=== PATIENT | male | born 1980 | race Native Hawaiian/Other Pacific Islander ===

== ENCOUNTER 2020-10-05 15:01 | Outpatient (REF) | payer OTHER, SELFPAY | END 2020-10-05 15:02 | disposition home or self-care (01) | LOC: HO.LAB 15:01 | PROVIDERS: Visit Provider Internal Medicine | DX: Z20.822 Contact with and (suspected) exposure to COVID-19 (principal) | CPT/HCPCS: C9803; U0003; U0005 ==

== ENCOUNTER 2022-05-16 14:09 | Outpatient (REF) | payer OTHER, SELFPAY ==
--- NOTE | ~2022-05-16 | XR_ITS ---
EXAMINATION: XR CHEST CLINICAL INFORMATION: Cough COMPARISON: None TECHNIQUE: 2 views of the chest were obtained. FINDINGS: No significant abnormality is noted involving the heart, lungs, mediastinum, bony thorax or soft tissues. XR/XR chest 2V IMPRESSION: Unremarkable examination.
== END 2022-05-16 14:10 | disposition home or self-care (01) ==
LOC: HO.XRAY 14:09
PROVIDERS: PCP Family Medicine; Visit Provider Family Medicine
DX: R05.9 Cough, unspecified (principal); R06.2 Wheezing
CPT/HCPCS: 71046

== ENCOUNTER 2022-05-22 10:15 | Outpatient (REF) | payer OTHER, SELFPAY ==
[2022-05-22 12:59] LABS: Estimated Average Glucose 126 mg/dL
[2022-05-22 13:06] LABS: Alanine Aminotransferase 21 U/L (0-40); Anion Gap 13 (12-20); Aspartate Amino Transferase 18 U/L (5-37); Blood Urea Nitrogen 10 mg/dL (9-16); Carbon Dioxide 27 mmol/L (22-29); Chloride 107 mmol/L (96-108); Cholesterol 141 mg/dL; Estimated Glomerular Filt Rate > 60; Glucose Fasting 110 mg/dL (60-99); HDL Cholesterol 30 mg/dL; LDL Cholesterol Calculated 100 mg/dl; Potassium 4.5 mmol/L (3.3-5.1); Sodium 142 mmol/L (135-145); Thyroid Stimulating Hormone 1.14 uIU/mL (0.32-4.0); Triglycerides 57 mg/dL
== END 2022-05-22 10:16 | disposition home or self-care (01) ==
LOC: HO.LAB 10:15
PROVIDERS: PCP Family Medicine; Visit Provider Family Medicine
DX: E66.9 Obesity, unspecified (principal); I10 Essential (primary) hypertension; R00.0 Tachycardia, unspecified; Z82.49 Family history of ischemic heart disease and other diseases of the circulatory system
CPT/HCPCS: 36415; 80051; 80061; 82565; 82947; 83036; 84443; 84450; 84460; 84520

== ENCOUNTER 2022-08-01 12:57 | Emergency (ER) | payer OTHER, SELFPAY ==
--- NOTE | ~2022-08-01 | XR_ITS ---
EXAMINATION: XR CHEST CLINICAL INFORMATION: Cough. COMPARISON: 05/16/2022 chest radiographs. TECHNIQUE: 2 views of the chest were obtained. FINDINGS: No significant abnormality is noted involving the heart, lungs, mediastinum, bony thorax or soft tissues. XR/XR chest 2V IMPRESSION: No acute cardiopulmonary process.
[2022-08-01 13:10] VITALS: BP 160/89; PULSE 107; RESP 20; TEMP 36.1; O2SAT 95; BMI 43.5
--- NOTE | 2022-08-01 13:10 | ED_ITS ---
HPI - URI/Sore Throat General Chief Complaint: Upper Respiratory Symptoms <STEVEN Hall Last Filed: 08/01/22 13:11> Stated Complaint: flu symptons <STEVEN Hall Last Filed: 08/01/22 13:11> Time Seen by Provider: 08/01/22 15:01 <STEVEN Hall Last Filed: 08/01/22 13:11> Source: patient <STEVEN Bowens Last Filed: 08/01/22 18:56> Mode of arrival: ambulatory <STEVEN Bowens Last Filed: 08/01/22 18:56> History of Present Illness HPI Narrative: 42-year-old male with no significant past medical history presenting to the ED complaining of nasal congestion, rhinorrhea, nonproductive cough, and rib pain when coughing since yesterday. Reports mild SOB. Denies fever, chills, ear pain, sore throat, recent travel, sick contacts <STEVEN Bowens Last Filed: 08/01/22 18:56> MD elicited complaint: rhinorrhea and nasal congestion <STEVEN Bowens Last Filed: 08/01/22 18:56> Onset (ago): day(s) <STEVEN Bowens Last Filed: 08/01/22 18:56> Related Data Home Medications: Previous Rx's Medication Instructions Recorded benzonatate 100 mg capsule 100 mg PO TID PRN cough #14 caps 08/01/22 fluticasone propionate 50 2 spray intranasal DAILY #16 grams 08/01/22 mcg/actuation nasal spray,suspension (Flonase Allergy Relief) <STEVEN Hall Last Filed: 08/01/22 13:11> Allergies/Adverse Reactions: Allergies Allergy/AdvReac Type Severity Reaction Status Date / Time No Known Allergies Allergy Unverified 03/01/20 17:26 <STEVEN Hall Last Filed: 08/01/22 13:11> Review of Systems Review of Systems: Constitutional: No Fever, No Chills ENT/Mouth: No Ear Pain, + Nasal Congestion, No Sinus Pain, No Hoarseness, No sore throat, + Rhinorrhea, No Swallowing Difficulty Cardiovascular: + Chest Pain when coughing, + SOB Respiratory: + Cough, No Sputum, No Wheezing Gastrointestinal: No Nausea, No Vomiting, No Diarrhea, No Abdominal pain Genitourinary: No Dysuria, No Urinary Frequency, No Hematuria Musculoskeletal: No joint pain, + Myalgias, No Joint Swelling Skin: No Skin Lesions, No rash Neuro: No Weakness, No Numbness, No Paresthesias <STEVEN Bowens - Last Filed: 08/01/22 18:56> Yes all other systems are reviewed and are negative <STEVEN Bowens - Last Filed: 08/01/22 18:56> Constitutional: Constitutional: Reports as per HPI <STEVEN Bowens - Last Filed: 08/01/22 18:56> [facility] Past Medical History Attestation statement: The following information was validated with the patient. <STEVEN Bowens - Last Filed: 08/01/22 18:56> Social History Social History: Social History Alcohol intake: current Alcohol intake frequency: holidays/special occasions only Smoked in Last 30 Days: No Advance Directives: No Advance Directives Information Provided: Yes <STEVEN Hall - Last Filed: 08/01/22 13:11> Physical Exam Vital Signs: Vital Signs: Last Vital Signs Temp 98.1 F 08/01/22 16:32 Pulse 92 08/01/22 16:32 Resp 18 08/01/22 16:32 BP 135/90 H 08/01/22 16:32 Pulse Ox 96 08/01/22 16:32 O2 Del Method 08/01/22 16:32 BMI result Body Mass Index 43.5 <STEVEN Hall - Last Filed: 08/01/22 13:11> Vital Signs: Last Vital Signs Temp 98.1 F 08/01/22 16:32 Pulse 92 08/01/22 16:32 Resp 18 08/01/22 16:32 BP 135/90 H 08/01/22 16:32 Pulse Ox 96 08/01/22 16:32 O2 Del Method 08/01/22 16:32 BMI result Body Mass Index 43.5 <STEVEN Bowens - Last Filed: 08/01/22 18:56> Const: General: cooperative, healthy appearing and no acute distress <STEVEN Bowens Last Filed: 08/01/22 18:56> Orientation/consciousness: patient oriented x3 <STEVEN Bowens - Last Filed: 08/01/22 18:56> Limitations: no limitations <STEVEN Bowens - Last Filed: 08/01/22 18:56> HEENT: Head: Yes normal to inspection and Yes atraumatic <STEVEN Bowens - Last Filed: 08/01/22 18:56> Ears: hearing grossly normal bilaterally, TM's normal bilaterally and mastoids normal <STEVEN Bowens - Last Filed: 08/01/22 18:56> General nose exam: Normal external nose present <STEVEN Bowens Last F iled: 08/01/22 18:56> Face and sinus: Yes normal facial exam <STEVEN Bowens - Last Filed: 08/01/22 18:56> Mouth: Normal oral and palatal mucosa present <STEVEN Bowens - Last Filed: 08/01/22 18:56> Throat: Yes posterior oropharynx normal, Yes tonsils normal, Yes uvula midline, No peritonsillar mass, No uvula laterally displaced and No uvular edema <STEVEN Bowens - Last Filed: 08/01/22 18:56> Eyes: General: appearance normal, both eyes and all related structures <STEVEN Bowens - Last Filed: 08/01/22 18:56> EOM: EOMs intact bilaterally <STEVEN Bowens - Last Filed: 08/01/22 18:56> Neck: Neck: Yes normal visual inspection and Yes no meningeal signs <STEVEN Bowens Last Filed: 08/01/22 18:56> Resp: Effort & Inspection: normal respiratory effort and no respiratory distress <STEVEN Bowens - Last Filed: 08/01/22 18:56> Auscultation: clear to auscultation bilaterally, no crackles, no rales and no rhonchi <STEVEN Bowens - Last Filed: 08/01/22 18:56> Cardio: Rate: regular rate <STEVEN Bowens - Last Filed: 08/01/22 18:56> Heart sounds: S1 normal heart sound present and S2 normal heart sound present <STEVEN Bowens - Last Filed: 08/01/22 18:56> Skin: Rashes: no rashes <STEVEN Bowens - Last Filed: 08/01/22 18:56> Wounds: no wounds <STEVEN Bowens - Last Filed: 08/01/22 18:56> Neuro: General: patient oriented x3, tone normal and no meningeal signs <STEVEN Bowens - Last Filed: 08/01/22 18:56> Gait exam (Neuro): Normal gait present <STEVEN Bowens - Last Filed: 08/01/22 18:56> Extrem: General: Yes normal to inspection <STEVEN Bowens - Last Filed: 08/01/22 18:56> Course Course Course Narrative: RME-13:10 42yoM presenting to the ED with complaints of nasal congestion/rhinorrhea, sore throat, productive cough all started yesterday worse today. Denies any fevers, sick contacts recent travel, nausea/vomiting/diarrhea abdominal pain or any other symptoms complaints or concerns at this time. Plan: COVID/RSV/flu, strep and chest x-ray ordered at this time. Patient to be seen EM. <STEVEN Hall - Last Filed: 08/01/22 13:11> RME-13:10 42yoM presenting to the ED with complaints of nasal congestion/rhinorrhea, sore throat, productive cough all started yesterday worse today. Denies any fevers, sick contacts recent travel, nausea/vomiting/diarrhea abdominal pain or any other symptoms complaints or concerns at this time. Plan: COVID/RSV/flu, strep and chest x-ray ordered at this time. Patient to be seen [facility]. -COVID-19 positive -chest x-ray unremarkable Results discussed with patient including worrisome signs and symptoms and strict return precautions, and when to return to the emergency department. They verbalized understanding and feel safe for discharge at this time. <STEVEN Bowens Last Filed: 08/01/22 18:56> Medical Decision Making Medical Decision Making MDM Narrative: 42-year-old male with no significant past medical history presenting to the ED complaining of nasal congestion, rhinorrhea, nonproductive cough, and rib pain when coughing since yesterday. On exam mildly tachycardic likely from active cough, NAD, nontoxic appearing, lungs CTA exam otherwise benign. Concern for viral illness versus bronchitis. Rule out pneumonia. Lower suspicion for ACS/PE or CHF Plan: COVID-19/influenza/RSV, rapid strep testing, CXR Please refer to course for remaining clinical decision making, interpretation of labs/imaging results, and discussions with consultants and/or family members. <STEVEN Bowens - Last Filed: 08/01/22 18:56> Differential Diagnosis Differential Diagnoses: The differential diagnosis associated with the presentation includes <STEVEN Bowens - Last Filed: 08/01/22 18:56> As above <STEVEN Bowens - Last Filed: 08/01/22 18:56> Lab Data [facility] Lab Attestation statement: I reviewed the patient's lab results. <STEVEN Bowens - Last Filed: 08/01/22 18:56> Labs: Lab Results 08/01/22 08/01/22 Range/Units 14:44 14:44 Influenza Type A (PCR) NEGATIVE (Negative) Influenza Type B (PCR) NEGATIVE (Negative) RSV RNA Qual (PCR) NEGATIVE (Negative) SARS-CoV-2 RNA (RT-PCR) POSITIVE A (Negative) S. pyogenes GrpA SIMIN Negative (Negative) <STEVEN Hall - Last Filed: 08/01/22 13:11> Lab Results 08/01/22 08/01/22 Range/Units 14:44 14:44 Influenza Type A (PCR) NEGATIVE (Negative) Influenza Type B (PCR) NEGATIVE (Negative) RSV RNA Qual (PCR) NEGATIVE (Negative) SARS-CoV-2 RNA (RT-PCR) POSITIVE A (Negative) S. pyogenes GrpA SIMIN Negative (Negative) <STEVEN Bowens - Last Filed: 08/01/22 18:56> Radiology Impression Discussion of test interpretation with radiology: I have reviewed the radiologist's reading. <STEVEN Bowens - Last Filed: 08/01/22 18:56> Prescription Management I considered prescription management with: Antiviral <STEVEN Bowens - Last Filed: 08/01/22 18:56> Discharge Plan Discharge Clinical Impression: COVID-19 <STEVEN Hall - Last Filed: 08/01/22 13:11> Patient Disposition: Home, Self-Care <STEVEN Hall - Last Filed: 08/01/22 13:11> Instructions: COVID-19 (Coronavirus Disease 2019) (ED) <STEVEN Hall - Last Filed: 08/01/22 13:11> Additional Instructions: At this time you will be okay for discharge. Please self isolate for 5-10 days. Do not expose yourself to others. You may not go to work or school. Please continue to follow cold instructions and wash your hands frequently. You may take Tylenol / Motrin as directed on the bottle for pain or fever. If you have constant or persistent shortness of breath, fever unresolved with medications, chest pain, or your unable to eat or drink please return to the ED CDC Guidelines for home isolation: - Stay away from others - WEAR A MASK if you are sick AND STAY HOME - Cover your mouth and nose with a tissue when you cough or sneeze. Dispose of tissues in a lined trash can and wash your hands immediately with soap and water for at least 20 seconds. If soap and water are not available, clean hands with alcohol-based hand personal trainer that contains at least 60% alcohol. - Clean your hands often with soap and water for at least 20 seconds - Avoid touching your eyes, nose and mouth with unwashed hands - Do not share dishes, drinking glasses, cups, eating utensils, towels, or bedding with other people in your home. After using these items, wash them thoroughly with soap and water or put in the slitting machine feeder. - Clean high-touch surfaces in your isolation area ( sick room and bathroom) every day; let a caregiver clean and disinfect high-touch surfaces in other areas of the home. Clean the area or item with soap and water or another detergent if it is dirty. Then, use a household disinfectant. - Limit contact with pets and animals: If you must care for a pet, wash your hands before and after interacting with them) <STEVEN Hall - Last Filed: 08/01/22 13:11> Prescriptions: New benzonatate 100 mg capsule 100 mg PO TID PRN (Reason: cough) Qty: 14 0RF fluticasone propionate [Flonase Allergy Relief] 50 mcg/actuation spray,suspension 2 spray intranasal DAILY Qty: 16 0RF Rx Instructions: administer into each nostril <STEVEN Hall - Last Filed: 08/01/22 13:11> Referrals: Andrei Vieira MD [Primary Care Provider] - 1 week <STEVEN Hall - Last Filed: 08/01/22 13:11> Stand Alone Forms: Work/School Release <STEVEN Hall - Last Filed: 08/01/22 13:11> Interventions: ED Discharge Assessment Last Done: 08/01/22 17:11 <STEVEN Hall - Last Filed: 08/01/22 13:11> Discharge Date/Time: 08/01/22 17:11 <STEVEN Hall - Last Filed: 08/01/22 13:11>
[2022-08-01 15:03] LABS: IDNOW Serial# 6674DD1D; Strep A Nucleic Acid Negative (Negative)
[2022-08-01 15:46] LABS: Influenza A PCR NEGATIVE (Negative); Influenza B PCR NEGATIVE (Negative); Resp Syncy Virus RNA Qual PCR NEGATIVE (Negative); SARS COV2 PCR INHOUSE POSITIVE (Negative)
[2022-08-01 16:32] VITALS: BP 135/90; PULSE 92; RESP 18; TEMP 36.7; O2SAT 96
== END 2022-08-01 17:11 | disposition home or self-care (01) ==
PROVIDERS: Physician Assistant Medical; Emergency Provider Emergency Medicine; PCP Family Medicine
DX: U07.1 COVID-19 (principal)
CPT/HCPCS: 0241U; 36415; 71046; 87651; 99283; 99284

== ENCOUNTER → 2022-10-14 08:29 | Outpatient (BNVA) | payer OTHER, SELFPAY | PROVIDERS: PCP Family Medicine; Referring Provider Family Medicine; Visit Provider Internal Medicine | DX: I45.10 Unspecified right bundle-branch block (principal); I10 Essential (primary) hypertension; E66.01 Morbid (severe) obesity due to excess calories; Z68.42 Body mass index [BMI] 45.0-49.9, adult | CPT/HCPCS: 93005; 99202 ==

== ENCOUNTER → 2022-10-16 14:27 | Outpatient (BNVA) | payer OTHER, SELFPAY | PROVIDERS: PCP Family Medicine; Visit Provider Nurse Practitioner Family | DX: R06.83 Snoring (principal); R40.0 Somnolence; E66.01 Morbid (severe) obesity due to excess calories; Z68.41 Body mass index [BMI] 40.0-44.9, adult | CPT/HCPCS: 99202 ==

== ENCOUNTER → 2022-10-23 08:55 | Outpatient (REF) | payer OTHER, SELFPAY ==
--- NOTE | 2022-10-23 08:57 | CA_ITS ---
Transthoracic Echocardiogram Patient (Last, First, Middle): Dangelo Cherry, Gender: Male Date of : 1980 Age: 42 Procedure Date: 10/23/2022 Procedure Type: Transthoracic Echocardiogram Location: OP Height: 175.26 cm Weight: 135.63 kg BSA: 2.45 m2 Heart Rate: bpm BP: 120 / 76 mmHg Roster Clerk: TO Referring MD: Shay Adan MD Symptoms: I45.10 - Unspecified right bundle-branch block Study Quality: Fair ECG Rhythm: Sinus Conclusions: - The left ventricular systolic function is mildly decreased. The calculated ejection fraction is 51% by biplane method. - No obvious valvular pathology seen on this study. Findings Left Ventricle Normal left ventricular cavity size. There is mildly increased left ventricular wall thickness. The left ventricular systolic function is mildly decreased. The calculated ejection fraction is 51% by biplane method. There is no evidence of regional wall motion abnormalities. Diastolic function is normal for age. LV peak GLS -17.1%. Right Ventricle Normal right ventricular cavity size and systolic function. Atria Both atria are normal in size. Aortic Valve There is a normal trileaflet aortic valve. There is no aortic valve stenosis. There is no aortic valve regurgitation. Mitral Valve The mitral valve appears normal. There is no mitral valve regurgitation. There is no mitral valve stenosis. Pulmonic Valve The pulmonic valve is likely normal. Tricuspid Valve Normal tricuspid valve structure. There is mild tricuspid valve regurgitation. There is no evidence of pulmonary hypertension. Great Vessels The asc aorta is normal in size. Venous The inferior vena cava is normal in size and collapses greater than 50% with inspiration. Pericardium/Pleural There is no evidence of pericardial effusion. Prior Study Comparison No prior study available for comparison. Recommendations, Care & Conclusions No obvious valvular pathology seen on this study. Measurements 2D Linear Measurements IVSd: 1.28 0.6-0.9/0.6-1.0 cm LVIDd: 5.64 3.9-5.3/4.2-5.9 cm LVIDd Index: 2.30 2.4-3.2/2.2-3.1 cm/m2 LVIDs: 3.54 2.0-3.6 cm LVPWd: 1.03 0.7-1.1 cm LA Diam: 4.30 2.7-3.8/3.0-4.0 cm LAIDs Index: 1.76 1.5-2.3 cm/m2 LV Mass: 335.98 67-162/88-224 g LV Mass Index: 137.13 43-95/49-115 g/m2 LVOT Diam: 2.50 3.0+(-)1.3 cm 2D Systolic Function EF 4C: 50.40 >55% EF 2C: 50.00 >55% EF BiP: 51.40 >55% Mitral Valve MV Pk E: 0.56 MV PK A: 0.42 MV Decel Time: 180.00 E/A: 1.30 E'Lateral: 12.60 E'Medial: 8.49 E/E' Med: 6.60 E/E' Lat: 4.50 PHT: 53.00 MVA PHT: 4.15 Decel Hickman: 3.12 Aortic Valve AoV Pk Ghassan: 1.12 AoV Mn Ghassan: 0.86 AoV VTI: 0.24 AoV Pk Grad: 5.00 Aov Mn Grad: 3.00 DIEGO Cont.VTI: 3.82 LVOT LVOT Pk Ghassan: 0.94 LVOT Mn Ghassan: 0.62 LVOT VTI: 0.18 LVOT Pk Grad: 4.00 LVOT Mn Grad: 2.00 LVOT Diam: 2.50 LVOT Area: 4.91 Diastolic Function MV Pk E: 0.56 MV Pk A: 0.42 E/A: 1.30 E'Medial: 8.49 E/E' Med: 6.60 E' Laterial: 12.60 E/E' Lat: 4.50 Right Ventricle TAPSE (mm): 21.40 TVS' Ghassan: 11.40 Tricuspid Valve TR Pk Ghassan: 2.42 TR Pk Grad: 23.00 RA Press: 3.00 RVSP: 26.00 Great Vessels Aorta Sinus of Valsalva: 3.60 2.0-3.5 cm Ao Asc: 3.30 2.1-3.4 cm Updated in Other Vendor System with Status of Final Shay Adan MD electronically signed on 10/24/2022 3:43:59 PM with status of Final
== END ==
LOC: HO.CARD 08:55
PROVIDERS: PCP Family Medicine; Visit Provider Internal Medicine
DX: I45.10 Unspecified right bundle-branch block (principal)
CPT/HCPCS: 93306; 93356

== ENCOUNTER → 2022-11-05 08:44 | Outpatient (REF) | payer OTHER, SELFPAY ==
[2022-11-05 10:30] LABS: Anion Gap 12 (12-20); Blood Urea Nitrogen 13 mg/dL (9-16); Calcium 9.3 mg/dL (8.4-10.2); Carbon Dioxide 25 mmol/L (22-29); Chloride 109 mmol/L (96-108); Estimated Glomerular Filt Rate > 60; Glucose Random 106 mg/dL (60-115); Potassium 4.3 mmol/L (3.3-5.1); Sodium 142 mmol/L (135-145)
== END ==
LOC: HO.SL 08:44
PROVIDERS: PCP Student in an Organized Health Care Education/Training Program; Referring Provider Internal Medicine; Visit Provider Nurse Practitioner Family
DX: G47.33 Obstructive sleep apnea (adult) (pediatric) (principal); I10 Essential (primary) hypertension; E66.01 Morbid (severe) obesity due to excess calories; R06.83 Snoring; R40.0 Somnolence
CPT/HCPCS: 36415; 80048; 95806

== ENCOUNTER 2023-01-06 10:43 | Outpatient (AMB) | payer OTHER, SELFPAY ==
--- NOTE | 2023-01-06 10:48 | MHC.OFFVIS ---
Intake Vital Signs 01/06/23 10:49 Height 5 ft 9 in Weight 294 lb BMI 43.4 BP 114/84 Blood Pressure Location Rt brachial Position Sitting Pulse 65 Pulse Source Pulse Oximeter Pulse Oximetry (%) 96 Oxygen Delivery Method Room Air Intake Visit Reasons: 2m follow up CELE - LVM Intake Note: Patient presents for 2 month follow up Allergies No Known Allergies Allergy (Verified 01/06/23 10:50) HPI HPI Comments History of Present Illness Details 42 y/o male patient presents for follow up of sleep study. The home sleep study result was significant for severe degree of sleep apnea. The AHI was 48/hr and snoring for 12% of the sleep time. Nocturnal hypoxemia with average O2 sat 90%, lowest O2 sat 59% and O2 sat below 88% for 61 min. Pt started APAP [id number]. The compliance and therapy response (12/06/22-01/04/23) reviewed with the patient. The usage days 100% and the average usage hours 5 hours. The median pressure was 10.8 and the AHI was 0.8/hr. Pt states that he does not snore with CPAP, sleeps well for 8 or more hours. He wakes up refreshed, and having more daytime energy. [facility] Medical History Morbid obesity RBBB Family History Mother No problems noted. Father No problems noted. Maternal Aunt Heart problem Social History Alcohol intake: current Alcohol intake frequency: holidays/special occasions only Patient Tobacco Use Status: Never used Tobacco Review of Systems Const All systems reviewed & are unremarkable except as noted in HPI and below ENT Reports Normal hearing present Neuro Reports Normal hearing present Physical Exam Vital Signs: Last Vital Signs Pulse 65 01/06/23 10:49 BP 114/84 01/06/23 10:49 Pulse Ox 96 01/06/23 10:49 Oxygen Delivery Method Room Air 01/06/23 10:49 BMI result Body Mass Index 43.4 Const General: cooperative Nutritional Appearance: obese Orientation/consciousness: patient oriented x3 Neck Neck: Yes full ROM and Yes supple Resp Effort & Inspection: normal respiratory effort and able to speak in complete sentences Neuro General: patient oriented x3 and gait normal Cranial nerves: Yes Bilaterally intact EOM present, Yes Normal facial strength present, Yes Midline tongue present, Yes Symmetric palate elevation present, Yes Normal hearing present, Yes Ability to bilaterally rotate head present and Yes Ability to bilaterally elevate shoulders present Cognition (Neuro): normal cognition Motor exam (neuro): 5/5 motor strength present throughout, Pronator motor function not present and no tremor noted Psych Appearance: grossly normal Mental Status: mental status grossly normal Speech and movement: Normal speech and movement present Affect: normal affect Attitude: cooperative Assessment & Plan Assessment & Plan (1) Morbid obesity: Code(s): E66.01 - Morbid (severe) obesity due to excess calories (2) Loud snoring: Code(s): R06.83 - Snoring (3) CELE (obstructive sleep apnea): Comment: Severe degree of sleep apnea. The AHI was 48/hr and oxygen ella was 59%. Code(s): G47.33 - Obstructive sleep apnea (adult) (pediatric) Plan Continue to use APAP [id number] as patient experiences good clinical effects, snoring reduced, better quality of sleep and daytime symptoms improved. Stressed compliance, use CPAP nightly and more than 4 hours. Clean mask and tubing regularly. Wt reduction advised. Coding Level of Care Code Est Pt Level 4 (87816) Diagnoses Morbid obesity E66.01 Loud snoring R06.83 CELE (obstructive sleep apnea) G47.33
[2023-01-06 10:49] VITALS: BP 114/84; PULSE 65; O2SAT 96; BMI 43.4
== END 2023-01-06 11:09 | disposition home or self-care (01) ==
LOC: HO.HSMC 10:43
PROVIDERS: PCP Student in an Organized Health Care Education/Training Program; Visit Provider Nurse Practitioner Family
DX: E66.01 Morbid (severe) obesity due to excess calories (principal); R06.83 Snoring; G47.33 Obstructive sleep apnea (adult) (pediatric)
CPT/HCPCS: 99214

== ENCOUNTER → 2023-01-06 10:43 | Outpatient (BNVA) | payer OTHER, SELFPAY | PROVIDERS: PCP Student in an Organized Health Care Education/Training Program; Visit Provider Nurse Practitioner Family | DX: G47.33 Obstructive sleep apnea (adult) (pediatric) (principal); R06.83 Snoring; I10 Essential (primary) hypertension; I45.10 Unspecified right bundle-branch block; E66.01 Morbid (severe) obesity due to excess calories; Z68.41 Body mass index [BMI] 40.0-44.9, adult; Z99.89 Dependence on other enabling machines and devices | CPT/HCPCS: 99212 ==

== ENCOUNTER 2023-01-22 09:58 | Outpatient (AMB) | payer OTHER, SELFPAY ==
--- NOTE | 2023-01-22 10:00 | MHC.OFFVIS ---
Intake Vital Signs 01/22/23 10:01 Height 5 ft 9 in Weight 297 lb 9.985 oz BMI 43.9 BP 118/72 Blood Pressure Location Lt brachial Position Sitting Pulse 65 Pulse Source Pulse Oximeter Pulse Oximetry (%) 98 Oxygen Delivery Method Room Air Intake Visit Reasons: Nocturnal Hypoxemia Intake Note: Pt presents today to discuss his sleep study, and low o2 at night . Allergies No Known Allergies Allergy (Verified 01/22/23 10:25) Medication List - Last Reconciled 01/22/23 by Veronica Flowers MD losartan 50 mg PO DAILY metoprolol succinate ER 50 mg PO QAM omeprazole 20 mg PO QPM Do you need a note to return to daycare/school/sports/work: No HPI Nocturnal Hypoxemia HPI Details This 42 years old, gentleman is a case of morbid obesity, and confirmed diagnosis of obstructive sleep apnea. He has had symptoms of the frequent awakening at night, excessive snoring, and daytime sleepiness. He had a Home sleep study on 11/12/22, which was grossly abnormal, showing total sleep time AHI 49, and also had low O2 sat, with O2 sat below 88% for 60 minutes. Patient has been started on CPAP and he is using it very regularly. HE IS SLEEPING MUCH BETTER. He is nonsmoker, Denies history of bronchial asthma or any respiratory allergies. Denies history of shortness of breath even on exertion or any cough. He had a chest x-ray on , and it was reported as normal. Patient has been referred for pulmonary evaluation, to make sure that there is no pulmonary cause of hypoxemia. [facility] [place] Medical History Morbid obesity RBBB Family History Mother No problems noted. Father No problems noted. Maternal Aunt Heart problem Social History Alcohol intake: current Alcohol intake frequency: holidays/special occasions only Patient Tobacco Use Status: Never used Tobacco Review of Systems Const All systems reviewed & are unremarkable except as noted in HPI and below Eyes Reports no additional complaints ENT Reports no additional complaints Card Denies chest pain, Denies leg edema and Denies dyspnea on exertion Resp Reports as per HPI and Denies dyspnea on exertion GI Reports heartburn (Intermittent controlled with omeprazole) Reports no additional complaints Musc Reports no additional complaints Skin/Breast Reports system reviewed and no additional complaints, except as documented Neuro Reports no additional complaints Psych Reports no additional complaints Endo Reports no additional complaints Physical Exam Vital Signs: Last Vital Signs Pulse 65 01/22/23 10:01 BP 118/72 01/22/23 10:01 Pulse Ox 98 01/22/23 10:01 Oxygen Delivery Method Room Air 01/22/23 10:01 BMI result Body Mass Index 43.9 Patient is still morbidly obese, with a round face and crowded oropharynx. Const General: healthy appearing (Except for being overweight), comfortable, no acute distress, alert and awake Orientation/consciousness: patient oriented x3 HEENT Head: Yes normal to inspection General nose exam: No nasal polyps present and No nasal discharge present Face and sinus: Yes sinuses nontender Mouth: oropharynx normal Throat: Yes posterior oropharynx normal Eyes General: appearance normal, both eyes and all related structures Neck Neck: Yes normal visual inspection, Yes no lymphadenopathy, Yes trachea midline and Yes no JVD Thyroid: Thyroid normal Chest Chest palpation & inspection: normal inspection of the chest, normal palpation of entire chest wall and no tenderness Resp Effort & Inspection: normal respiratory effort Auscultation: clear to auscultation bilaterally, no crackles and no wheezes Cardio Palpation: normal PMI Rate: regular rate Rhythm: regular rhythm Heart sounds: no gallops and no murmurs Peripheral pulses: Peripheral pulses 2+ throughout GI Palpation (GI): Soft to palpation, nontender, No hepatosplenomegaly present and no masses Auscultation: normal bowel sounds Back/Spine/Pelvis Thoracic/Lumbar Spine: thoracic and lumbar spine normal to inspection Skin General skin exam: no rashes or lesions noted Neuro General: patient oriented x3 and no focal motor deficits Cranial nerves: Yes CN's II-XII intact bilaterally Extrem General: Yes normal to inspection, Yes no clubbing, cyanosis or edema and Yes no calf tenderness Psych Appearance: grossly normal and well kempt Speech and movement: Normal speech and movement present Results Reviewed Results Reviewed: Results of home-based sleep study of 11/12 reviewed. TOTAL SLEEP TIME AHI 49, AND O2 SAT BELOW 88% FOR 61 MINUTE. Assessment & Plan Assessment & Plan (1) Morbid obesity: Comment: PATIENT REMAINS MORBIDLY OBESE, URGED TO GO ON A E RESTRICTED CALORIES DIET, AND ALSO START DOING DAILY EXERCISE SUCH WALKING AT LEAST 2 MILES A DAY. Code(s): E66.01 - Morbid (severe) obesity due to excess calories (2) CELE (obstructive sleep apnea): Comment: Severe degree of sleep apnea. The AHI was 48/hr and oxygen ella was 59%. PATIENT IS BEING TREATED WITH CPAP.( APAP 6-20 CMS,F F MASK ) COMPLIANCE REPORT INDICATES THAT HE IS VERY COMPLIANT USING FOR 5 HOURS 24 MINUTES PER NIGHT. RESIDUAL AHI ONLY 0.9 HE WAS COMMENDED FOR HIS EXCELLENT COMPLIANCE. AND ADVISED TO CONTINUE FOLLOW-UP WITH THE SLEEP MEDICINE SERVICE. Code(s): G47.33 - Obstructive sleep apnea (adult) (pediatric) (3) Nocturnal hypoxemia: Comment: His nocturnal hypoxemia noted in the sleep study is probably secondary to sleep-related hypoventilation, and obstructive sleep apnea. Now that his sleep apnea is treated with CPAP. His hypoxemia may have resolved. PLAN : PULMONARY FUNCTION TEST TO MAKE SURE THAT HIS LUNG FUNCTION IS OKAY. OVERNIGHT OXIMETRY RECORDING WHILE HE IS USING THE CPAP. WILL RECHECK HIM AFTER THESE ABOVE TESTS ARE COMPLETED. Code(s): G47.34 - Idiopathic sleep related nonobstructive alveolar hypoventilation Coding Level of Care Code New Pt Level 3 (97271) Diagnoses Morbid obesity E66.01 CELE (obstructive sleep apnea) G47.33 Nocturnal hypoxemia G47.34
[2023-01-22 10:01] VITALS: BP 118/72; PULSE 65; O2SAT 98; BMI 43.9
== END 2023-01-22 10:23 | disposition home or self-care (01) ==
PROVIDERS: PCP Student in an Organized Health Care Education/Training Program; Visit Provider Internal Medicine
DX: E66.01 Morbid (severe) obesity due to excess calories (principal); Z68.41 Body mass index [BMI] 40.0-44.9, adult; G47.33 Obstructive sleep apnea (adult) (pediatric); G47.34 Idiopathic sleep related nonobstructive alveolar hypoventilation
CPT/HCPCS: 99213

== ENCOUNTER → 2023-01-22 09:58 | Outpatient (BNVA) | payer OTHER, SELFPAY | PROVIDERS: PCP Student in an Organized Health Care Education/Training Program; Visit Provider Internal Medicine | DX: G47.33 Obstructive sleep apnea (adult) (pediatric) (principal); G47.34 Idiopathic sleep related nonobstructive alveolar hypoventilation; E66.01 Morbid (severe) obesity due to excess calories; Z68.41 Body mass index [BMI] 40.0-44.9, adult | CPT/HCPCS: 99212 ==

== ENCOUNTER 2023-02-12 13:00 | Outpatient (AMB) | payer OTHER, SELFPAY ==
[2023-02-12 13:01] VITALS: BP 114/80; PULSE 63; BMI 43.0
--- NOTE | 2023-02-12 13:01 | MHC.OFFVIS ---
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 He now has CPAP mask and has been seen by pulmonology. Echocardiogram showed low normal EF, losartan was added. Today he reports he is feeling much better now that he is using CPAP. He reports more energy and not following sleep in the daytime. He is sleeping well at night with his mask. He works at [employer] in tells me he is walking and moving around frequently throughout the day. No chest discomfort at rest or with activity. No shortness of breath, no palpitations, dizziness, presyncope, syncope, PND, orthopnea or edema. He is taking his meds as directed. [facility] Medical History Morbid obesity RBBB Family History Mother No problems noted. Father No problems noted. Maternal Aunt Heart problem Social History Alcohol intake: current Alcohol intake frequency: holidays/special occasions only Patient Tobacco Use Status: Never used Tobacco Review of Systems Const All systems reviewed & are unremarkable except as noted in HPI and below ENT Denies dizziness Card Denies chest pain, Denies chest pain at rest, Denies chest pain with activity, Denies rapid heart rate, Denies pedal edema, Denies edema, Denies leg edema, Denies lightheadedness, Denies palpitations, Denies dyspnea, Denies dyspnea on exertion and Denies orthopnea Resp Denies cough, Denies dyspnea and Denies dyspnea on exertion GI Denies hematochezia and Denies change in stool character Musc Denies abnormal gait, Denies limited range of motion, Denies muscle cramps, Denies muscle weakness, Denies numbness, Denies radiating pain into limb, Denies stiffness and Denies tingling Neuro Denies abnormal gait, Denies dizziness, Denies numbness and Denies tingling Endo Denies palpitations Physical Exam Vital Signs: Last Vital Signs Pulse 63 02/12/23 13:01 BP 114/80 02/12/23 13:01 BMI result Body Mass Index 43.0 Const General: cooperative, healthy appearing, comfortable and no acute distress Orientation/consciousness: patient oriented x3 Neck Neck: Yes normal visual inspection and Yes no JVD Resp Effort & Inspection: normal respiratory effort Auscultation: clear to auscultation bilaterally, no crackles, no rales, no rhonchi and no wheezes Cardio Jugular venous distension: no JVD Rate: regular rate Rhythm: regular rhythm Heart sounds: S1 normal heart sound present, S2 normal heart sound present, no gallops, no murmurs and no rubs Neuro General: patient oriented x3 Extrem General: Yes normal to inspection, No no pedal edema and No calf tenderness Psych Appearance: grossly normal Mental Status: mental status grossly normal Speech and movement: Normal speech and movement present Assessment & Plan Assessment & Plan (1) CELE (obstructive sleep apnea): Comment: Severe degree of sleep apnea. The AHI was 48/hr and oxygen ella was 59%. PATIENT IS BEING TREATED WITH CPAP.( APAP 6-20 CMS,F F MASK ) COMPLIANCE REPORT INDICATES THAT HE IS VERY COMPLIANT USING FOR 5 HOURS 24 MINUTES PER NIGHT. RESIDUAL AHI ONLY 0.9 HE WAS COMMENDED FOR HIS EXCELLENT COMPLIANCE. AND ADVISED TO CONTINUE FOLLOW-UP WITH THE SLEEP MEDICINE SERVICE. Code(s): G47.33 - Obstructive sleep apnea (adult) (pediatric) Plan: Newer finding of very severe obstructive sleep apnea and hypoxia. He is now being followed by pulmonology and has CPAP mask in use. He reports feeling much better overall with less daytime fatigue and increased energy. The importance of strict compliance reviewed with him. Echocardiogram done 10/23/2022 showed EF 51%, no regional wall motion abnormalities and no valve abnormalities. His low normal EF is likely related to his obstructive sleep apnea which had been on treated at that time. Losartan was added to his metoprolol for good heart rate and blood pressure control. Blood pressure currently 114/80. Follow-up labs showed creatinine 1.04, potassium 4.3. Continue current management with CPAP and losartan, metoprolol. Plan for repeat echo prior to next visit. Cardiology follow-up in 1 year, sooner if needed (2) Nocturnal hypoxemia: Comment: His nocturnal hypoxemia noted in the sleep study is probably secondary to sleep-related hypoventilation, and obstructive sleep apnea. Now that his sleep apnea is treated with CPAP. His hypoxemia may have resolved. PLAN : PULMONARY FUNCTION TEST TO MAKE SURE THAT HIS LUNG FUNCTION IS OKAY. OVERNIGHT OXIMETRY RECORDING WHILE HE IS USING THE CPAP. WILL RECHECK HIM AFTER THESE ABOVE TESTS ARE COMPLETED. Code(s): G47.34 - Idiopathic sleep related nonobstructive alveolar hypoventilation (3) Essential hypertension: Code(s): I10 - Essential (primary) hypertension Plan: Well controlled at present, no med changes made (4) RBBB: Code(s): I45.10 - Unspecified right bundle-branch block Plan: Finding on Ari EKG, no specific treatment warranted, will follow Orders: Orders CA echo transthoracic complete 11 Months G47.33 - Obstructive sleep apnea (adult) (pediatric), I10 - Essential (primary) hypertension Coding Level of Care Code Est Pt Level 3 (48972) Diagnoses CELE (obstructive sleep apnea) G47.33 Nocturnal hypoxemia G47.34 Essential hypertension I10 RBBB I45.10 Time Spent (min) 24 Comment Chart review, documentation, interview, assess
== END 2023-02-12 13:19 | disposition home or self-care (01) ==
PROVIDERS: PCP Student in an Organized Health Care Education/Training Program; Referring Provider Student in an Organized Health Care Education/Training Program; Visit Provider Nurse Practitioner Family
DX: G47.33 Obstructive sleep apnea (adult) (pediatric) (principal); G47.34 Idiopathic sleep related nonobstructive alveolar hypoventilation; I10 Essential (primary) hypertension; I45.10 Unspecified right bundle-branch block
CPT/HCPCS: 99213

== ENCOUNTER → 2023-02-12 13:00 | Outpatient (BNVA) | payer OTHER, SELFPAY | PROVIDERS: PCP Student in an Organized Health Care Education/Training Program; Referring Provider Student in an Organized Health Care Education/Training Program; Visit Provider Nurse Practitioner Family | DX: I45.10 Unspecified right bundle-branch block (principal); I10 Essential (primary) hypertension; G47.34 Idiopathic sleep related nonobstructive alveolar hypoventilation; G47.33 Obstructive sleep apnea (adult) (pediatric) | CPT/HCPCS: 99212 ==

== ENCOUNTER 2023-03-31 14:05 | Outpatient (AMB) | payer OTHER, SELFPAY ==
--- NOTE | 2023-03-31 14:07 | MHC.OFFVIS ---
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 HE HAS BEEN USING THE CPAP VERY REGULARLY WITH FULL FACE MASK. AND PRESSURE SETTING 6-16 CM. HE IS HAPPY WITH THE USE OF CPAP, SLEEPS MUCH BETTER. THERE IS NO COMPLAINT REGARDING THE MASK OR CPAP DEVICE. HE HAD OVERNIGHT OXIMETRY RECORDING WITH THE CPAP ON, AND THERE WAS NO DESATURATION OVERNIGHT. HE STILL GETS SHORT OF BREATH ON WALKING AROUND, IF HIS O2 SAT HAS FALLEN DOWN. VERY LITTLE COUGH AND HE HAS NO WHEEZING. [facility] Medical History (Updated 03/31/23 @ 14:53 by Veronica Flowers MD) Dyspnea on exertion Morbid obesity RBBB Family History Mother No problems noted. Father No problems noted. Maternal Aunt Heart problem Social History Alcohol intake: current Alcohol intake frequency: holidays/special occasions only Patient Tobacco Use Status: Never used Tobacco Review of Systems Const All systems reviewed & are unremarkable except as noted in HPI and below Eyes Reports no additional complaints ENT Reports no additional complaints Card Denies chest pain, Denies leg edema and Denies dyspnea on exertion Resp Reports as per HPI and Denies dyspnea on exertion GI Reports heartburn (Intermittent controlled with omeprazole) Reports no additional complaints Musc Reports no additional complaints Skin/Breast Reports system reviewed and no additional complaints, except as documented Neuro Reports no additional complaints Psych Reports no additional complaints Endo Reports no additional complaints Physical Exam Vital Signs: Last Vital Signs Pulse 68 03/31/23 14:09 BP 136/74 03/31/23 14:09 Pulse Ox 96 03/31/23 14:09 Oxygen Delivery Method Room Air 03/31/23 14:09 BMI result Body Mass Index 44.6 Patient is still morbidly obese, with a round face and crowded oropharynx. Const General: healthy appearing (Except for being overweight), comfortable, no acute distress, alert and awake Orientation/consciousness: patient oriented x3 HEENT Head: Yes normal to inspection General nose exam: No nasal polyps present and No nasal discharge present Face and sinus: Yes sinuses nontender Mouth: oropharynx normal Throat: Yes posterior oropharynx normal Eyes General: appearance normal, both eyes and all related structures Neck Neck: Yes normal visual inspection, Yes no lymphadenopathy, Yes trachea midline and Yes no JVD Thyroid: Thyroid normal Chest Chest palpation & inspection: normal inspection of the chest, normal palpation of entire chest wall and no tenderness Resp Effort & Inspection: normal respiratory effort Auscultation: clear to auscultation bilaterally, no crackles and no wheezes Cardio Palpation: normal PMI Rate: regular rate Rhythm: regular rhythm Heart sounds: no gallops and no murmurs Peripheral pulses: Peripheral pulses 2+ throughout GI Palpation (GI): Soft to palpation, nontender, No hepatosplenomegaly present and no masses Auscultation: normal bowel sounds Back/Spine/Pelvis Thoracic/Lumbar Spine: thoracic and lumbar spine normal to inspection Skin General skin exam: no rashes or lesions noted Neuro General: patient oriented x3 and no focal motor deficits Cranial nerves: Yes CN's II-XII intact bilaterally Extrem General: Yes normal to inspection, Yes no clubbing, cyanosis or edema and Yes no calf tenderness Psych Appearance: grossly normal and well kempt Speech and movement: Normal speech and movement present Office Procedures Spirometry Testing Spirometry Comments: Spirometry done in the office, Dr. Flowers has the results results scanned to patients chart. 95753- Spirometry Results Reviewed Results Reviewed: COMPLIANCE REPORT FROM 02/16 07/25/2002 IS REVIEWED. HIS USAGE WAS 30/30 NIGHTS, 100%. AVERAGE USE PER NIGHT 5 HOURS 35 MINUTES. PRESSURE USED MOSTLY 12-14 CM. AIR LEAK WAS MINIMAL. RESIDUAL AHI 1.0 SPIROMETRY; FVC 73% FEV1 74% FEF 25-75 78% C/W MILD RESTRICTIVE DISORDER BUT NO OBSTRUCTIVE DISORDER Assessment & Plan Assessment & Plan (1) Morbid obesity: Comment: PATIENT REMAINS MORBIDLY OBESE, URGED TO GO ON A RESTRICTED CALORIES DIET, AND ALSO START DOING DAILY EXERCISE SUCH WALKING AT LEAST 2 MILES A DAY. Code(s): E66.01 - Morbid (severe) obesity due to excess calories (2) CELE (obstructive sleep apnea): Comment: KNOWN CASE OF SEVERE OBSTRUCTIVE SLEEP APNEA. AHI =48/hr and oxygen ella was 59%. PATIENT IS NOW USING THE CPAP, REGULARLY AND THE COMPLIANCE IS GOOD. COMPLIANCE REPORT INDICATES THAT HE IS VERY COMPLIANT USING FOR 5 HOURS 35 MINUTES PER NIGHT. RESIDUAL AHI ONLY 1.0 HE WAS COMMENDED FOR HIS EXCELLENT COMPLIANCE. AND ADVISED TO CONTINUE FOLLOW-UP WITH THE SLEEP MEDICINE SERVICE. Code(s): G47.33 - Obstructive sleep apnea (adult) (pediatric) (3) Nocturnal hypoxemia: Comment: WITH THE USE OF CPAP AT NIGHT. NOCTURNAL HYPOXEMIA IS COMPLETELY RESOLVED, INDICATED BY OVERNIGHT OXIMETRY RECORDING. Code(s): G47.34 - Idiopathic sleep related nonobstructive alveolar hypoventilation (4) Dyspnea on exertion: Comment: HE DOES HAVE MILD DYSPNEA ON EXERTION WHICH I THINK IS DUE TO HIS OBESITY. PULMONARY FUNCTION. TEST HAS NOT BEEN PERFORMED SPIROMETRY IN THE OFFICE TODAY SHOWS MILD RESTRICTIVE PATTERN WHICH IS DEFINITELY RELATED TO HIS OBESITY. THERE IS NO OBSTRUCTIVE AIRWAY DISORDER. PATIENT IS EXPLAINED ABOUT THIS. ADVISED TO LOSE WEIGHT. ALSO ADVISED TO DO DEEP BREATHING EXERCISES 2 OR 3 TIMES A DAY. Code(s): R06.09 - Other forms of dyspnea Orders: Orders AMB Spirometry Testing Today G47.33 - Obstructive sleep apnea (adult) (pediatric) Coding Level of Care Code Est Pt Level 3 (56250) Diagnoses Morbid obesity E66.01 CELE (obstructive sleep apnea) G47.33 Nocturnal hypoxemia G47.34 Dyspnea on exertion R06.09 CPT Codes Spirometry - CPT: 56319- Spirometry ([id number])
[2023-03-31 14:09] VITALS: BP 136/74; PULSE 68; O2SAT 96; BMI 44.6
== END 2023-03-31 14:38 | disposition home or self-care (01) ==
PROVIDERS: PCP Student in an Organized Health Care Education/Training Program; Visit Provider Internal Medicine
DX: G47.33 Obstructive sleep apnea (adult) (pediatric) (principal); G47.34 Idiopathic sleep related nonobstructive alveolar hypoventilation; E66.01 Morbid (severe) obesity due to excess calories; Z68.41 Body mass index [BMI] 40.0-44.9, adult
CPT/HCPCS: 94010; 99213

== ENCOUNTER → 2023-03-31 14:05 | Outpatient (BNVA) | payer OTHER, SELFPAY | PROVIDERS: PCP Student in an Organized Health Care Education/Training Program; Visit Provider Internal Medicine | DX: G47.33 Obstructive sleep apnea (adult) (pediatric) (principal); G47.34 Idiopathic sleep related nonobstructive alveolar hypoventilation; R06.09 Other forms of dyspnea; I45.10 Unspecified right bundle-branch block; E66.01 Morbid (severe) obesity due to excess calories; Z68.41 Body mass index [BMI] 40.0-44.9, adult; Z99.89 Dependence on other enabling machines and devices | CPT/HCPCS: 94010; 99212 ==

== ENCOUNTER 2023-04-03 23:31 | Emergency (ER) | payer OTHER, SELFPAY ==
--- NOTE | ~2023-04-03 | XR_ITS ---
EXAMINATION: XR WRIST, LEFT XR HAND, LEFT CLINICAL INFORMATION: Pain, swelling COMPARISON: None available. TECHNIQUE: PA, lateral, and oblique views of the left wrist and PA, lateral, and oblique views of the left hand FINDINGS: There is a minimally displaced oblique fracture through the neck of the fifth metacarpal. Adjacent soft tissue swelling is present along the dorsum of the hand. Articular alignment throughout the wrist and hand is anatomic. XR/XR hand wrist LT IMPRESSION: Minimally displaced oblique fracture through the neck of the fifth metacarpal.
[2023-04-03 23:59] VITALS: BP 135/73; PULSE 81; RESP 16; TEMP 36.9; O2SAT 98; BMI 43.0
[2023-04-04] MEDS: Ibuprofen 400 MG TABLET PO (01:25)
--- NOTE | 2023-04-04 01:39 | ED_ITS ---
HPI - Extremity Problem General Chief complaint: Extremity Injury, Upper Stated complaint: Left hand injury Time Seen by Provider: 04/04/23 01:35 Source: patient, RN notes reviewed and old records reviewed Mode of arrival: ambulatory Limitations: no limitations History of Present Illness HPI Narrative: 43-year-old male presents for evaluation left hand and wrist pain. Patient reports that he punched a wall yesterday He has pain to his left hand and wrist with swelling. He took Tylenol prior to arrival. He complains of 8/10 pain. Denies any other injuries No open wound Related Data Home Medications Medication Instructions Recorded Confirmed metoprolol succinate 50 mg 50 mg PO QAM 10/14/22 03/31/23 tablet,extended release 24 hr Previous Rx's Medication Instructions Recorded losartan 50 mg tablet 50 mg PO DAILY #90 tabs 02/26/23 oxycodone 5 mg tablet 5 mg PO Q6H PRN severe pain (scale 04/04/23 score 7-10) #14 tabs Allergies Allergy/AdvReac Type Severity Reaction Status Date / Time No Known Allergies Allergy Verified 04/03/23 23:59 Review of Systems Musculoskeletal: Musculoskeletal: Reports arthralgias, Reports joint swelling and Reports limited range of motion PMFSH Past Medical History Medical History (Updated 04/04/23 @ 01:43 by Simón Lopez) Dyspnea on exertion Morbid obesity RBBB Family History Family History Mother No problems noted. Father No problems noted. Maternal Aunt Heart problem Social History Social History Alcohol intake: never Patient Tobacco Use Status: Never used Tobacco Smoked in Last 30 Days: No Use of substances other than those prescribed or required for medical reasons: No Advance Directives: No Advance Directives Information Provided: Yes Physical Exam Vital Signs: Vital Signs: Last Vital Signs Temp 98.5 F 04/03/23 23:59 Pulse 81 04/03/23 23:59 Resp 16 04/03/23 23:59 BP 135/73 04/03/23 23:59 Pulse Ox 98 04/03/23 23:59 O2 Del Method Room Air 04/03/23 23:59 BMI result Body Mass Index 43.0 Const: General: healthy appearing, comfortable, no acute distress, alert and awake Nutritional Appearance: well nourished Orientation/consciousness: patient oriented x3 HEENT: Head: Yes normocephalic and Yes atraumatic Eyes: Eyelids: Yes eyelids normal Conjunctivae: conjunctivae normal Sclerae: sclerae normal Corneas: corneas normal Pupils: Equal, round and reactive pupils present EOM: EOMs intact bilaterally Neck: Neck: Yes full ROM Resp: Effort & Inspection: normal respiratory effort, able to speak in complete sentences and not labored Skin: General skin exam: no rashes or lesions noted and elasticity normal Neuro: General: patient oriented x3 Cranial nerves: Yes Equal, round and reactive pupils present and Yes Bilaterally intact EOM present Cognition (Neuro): normal cognition Extrem: Other: Tenderness over the distal left 5th metacarpal. There is edema to most of the lateral left hand. There is very minimal left wrist tenderness in the distal ulna. No visual or palpable deformity. The patient has good range of motion with flexion and extension. Capillary refill intact to all 5 fingers of left hand. Medications Administered Discontinued Medications Generic Name Dose Route Start Last Admin Trade Name Freq PRN Reason Stop Dose Admin Ibuprofen 400 mg 04/04/23 00:59 04/04/23 01:25 Ibuprofen 400 Mg Tablet PO 04/04/23 01:00 400 mg ONCE ONE Administration Medical Decision Making Medical Decision Making [facility] Narrative: Patient has a simple, minimally displaced boxer's fracture, he will be placed in an ulnar gutter splint. He will be treated with ibuprofen in the ER if he is driving home but he will be given a prescription for short course of oxycodone. He will be referred to Orthopedics for follow-up Differential Diagnosis Differential Diagnoses: The differential diagnosis associated with the presentation includes Hand pain Hand fracture Wrist fracture Hand sprain Wrist sprain Independent Interpretation I performed an independent interpretation of an: Plain X-Ray (Acute fracture of the left 5th metacarpal) Radiology Impression Discussion of test interpretation with radiology: I have reviewed the radiologist's reading. (Minimally displaced oblique fracture of the left 5th metacarpal neck) Procedures Orthopedic Splinting/Casting Injury #1: Side: left Upper Extremity Injury Location: hand Upper Extremity Immobilizer: ulnar gutter Additional Comments: Postprocedure, capillary refill intact, patient able to wiggle all fingers. Discharge Plan Discharge Clinical Impression: Boxer's fracture Qualifiers: Encounter type: initial encounter Fracture type: closed Qualified Code(s): S62.339A - Displaced fracture of neck of unspecified metacarpal bone, initial encounter for closed fracture Patient Disposition: Home, Self-Care Instructions: Boxer Fracture (ED) Additional Instructions: You have a fracture of the 5th metacarpal bone in your hand You were given a splint to keep this stabilized and allow for healing Use Motrin/Tylenol for pain Use oxycodone for more severe, breakthrough pain This may make you sleepy, do not drink alcohol or drive after taking it Follow-up with Orthopedics, call the number provided on Thursday to schedule an appointment Prescriptions: New oxycodone 5 mg tablet 5 mg PO Q6H PRN (Reason: severe pain (scale score 7-10)) Qty: 14 0RF Rx Instructions: Partial Fill upon patient request. No Action losartan 50 mg tablet 50 mg PO DAILY Qty: 90 3RF metoprolol succinate 50 mg tablet extended release 24 hr 50 mg PO QAM Referrals: Karthik Grace MD [Physician] - (left 5th metacarpal fracture)
== END 2023-04-04 02:12 | disposition home or self-care (01) ==
PROVIDERS: Emergency Provider Emergency Medicine Emergency Medical Services; PCP Family Medicine
DX: S62.337A Displaced fracture of neck of fifth metacarpal bone, left hand, initial encounter for closed fracture (principal); W22.09XA Striking against other stationary object, initial encounter; Y93.89 Activity, other specified; Y92.9 Unspecified place or not applicable; Y99.9 Unspecified external cause status
CPT/HCPCS: 29125; 73110; 73130; 99283; 99284

== ENCOUNTER 2023-04-10 08:11 | Outpatient (REF) | payer OTHER, SELFPAY ==
--- NOTE | ~2023-04-10 | XR_ITS ---
EXAMINATION: XR HAND, LEFT CLINICAL INFORMATION: Left hand pain, splint off COMPARISON: 04/04/2023 TECHNIQUE: PA, lateral, and oblique views of the left hand. FINDINGS: Redemonstration of mildly displaced oblique fracture through the neck of the fifth metacarpal. There is no definitive evidence of interval callus formation. XR/XR hand LT min 3V IMPRESSION: Redemonstration of mildly displaced oblique fracture through the neck of the fifth metacarpal. There is no definitive evidence of interval callus formation.
== END 2023-04-10 08:12 | disposition home or self-care (01) ==
LOC: HO.HOSX 08:11
PROVIDERS: Visit Provider Physician Assistant
DX: S62.337A Displaced fracture of neck of fifth metacarpal bone, left hand, initial encounter for closed fracture (principal)
CPT/HCPCS: 26600; 73130

== ENCOUNTER 2023-04-10 12:35 | Outpatient (AMB) | payer OTHER, SELFPAY ==
[2023-04-10 12:45] VITALS: BMI 43.0
--- NOTE | 2023-04-10 12:45 | A.OFFVIS_ITS ---
Intake Vital Signs 04/10/23 12:45 Height 5 ft 9 in Weight 291 lb BMI 43.0 Intake Visit Reasons: [employer]-LT hand displaced boxer's fracture Intake Note: Dangelo is a 43 year old right hand dominant male who presents today for a evaluation for his left hand fx, DOI 04/04/23. Patient reports he punched a wall. He states having pain to his left hand and wrist with swelling. having mild pain on the dorsal aspect of the hand. Denies numbness and tingling. Allergies No Known Allergies Allergy (Verified 04/10/23 12:49) HPI [employer]-LT hand displaced boxer's fracture HPI Details 43-year-old right hand dominant male who presents to the office today for evaluation of left-hand injury after punching a wall, 04/04/23. He states he has mild pain in dorsal aspect of his left hand as well as swelling in his left wrist. He denies any numbness or tingling. [facility] Medical History (Updated 04/12/23 @ 15:05 by Jermaine Cardozo PA-C) Dyspnea on exertion Morbid obesity RBBB Family History Mother No problems noted. Father No problems noted. Maternal Aunt Heart problem Social History (Updated 04/10/23 @ 12:52 by Kayley Redmond) Alcohol intake: never Patient Tobacco Use Status: Never used Tobacco Current occupational status: employed Current occupation: right hand dominant Review of Systems Const All systems reviewed & are unremarkable except as noted in HPI and below Physical Exam Vital Signs: BMI result Body Mass Index 43.0 Const General: cooperative, healthy appearing, comfortable, no acute distress, well developed and alert Orientation/consciousness: patient oriented x3 HEENT Head: Yes normal to inspection, Yes normocephalic and Yes atraumatic Eyes General: appearance normal, both eyes and all related structures Resp Effort & Inspection: normal respiratory effort and able to speak in complete sentences Cardio Rate: regular rate Peripheral pulses: Peripheral pulses 2+ throughout GI Palpation (GI): Soft to palpation Skin Lesions: no lesions Rashes: no rashes Neuro General: patient oriented x3 Extrem Other: Left hand: Normal to inspection. There is some tenderness over the neck of the 5th metacarpal. There is no scissoring or angulation of the small finger. he can fully extend and bring his hand to a closed fist. Office Procedures Casting/Splints 51644-Fluh/Wrist Cast Application Procedure code (CPT) selection complete Fracture Care Fracture Billing Code: Fracture Billing Code Results Reviewed Results Reviewed: X-rays of the left hand obtained in the office today show a minimally displaced 5th metacarpal neck fracture. No angulation or scissoring. Assessment & Plan Assessment & Plan (1) Fracture of fifth metacarpal bone: Code(s): S62.308A - Unspecified fracture of other metacarpal bone, initial encounter for closed fracture Qualifiers: Encounter type: initial encounter Metacarpal location: neck Fracture alignment: displaced Laterality: left Plan Images were reviewed with Dr. Pereira over the phone. The plan was discussed. He was placed in finger spica cast which he will wear for the next 3 weeks. He will avoid any type of lifting, pushing, pulling or carrying and he was given a work note to support this. I would like to see him back in 3 weeks with cast off and new x-rays, sooner if needed. Orders: Orders XR hand LT min 3V 04/10/23 M79.642 - Pain in left hand Patient Instructions: Scribed for Jermaine Cardozo PA-C, by Nathaniel Sanchez medical science liaison, on 04/10/2023 at 12:30 PM EST. IJermaine PA-C, have personally reviewed and agree with the information entered by the scribe. Coding Level of Care Code New Pt Level 3 (35714) Diagnoses Fracture of fifth metacarpal bone S62.308A Encounter type: initial encounter Metacarpal location: neck Fracture alignment: displaced Laterality: left CPT Codes Casting - CPT: 85932-Ryco/Wrist Cast Application ([id number]) Fracture Care - Fracture Billing Code: Fracture Billing Code ([id number])
== END 2023-04-10 13:36 | disposition home or self-care (01) ==
PROVIDERS: PCP Family Medicine; Visit Provider Physician Assistant
DX: S62.307A Unspecified fracture of fifth metacarpal bone, left hand, initial encounter for closed fracture (principal); W22.09XA Striking against other stationary object, initial encounter
CPT/HCPCS: 26600; 99203

== ENCOUNTER 2023-04-27 08:42 | Outpatient (REF) | payer OTHER, SELFPAY ==
--- NOTE | ~2023-04-27 | XR_ITS ---
EXAMINATION: XR HAND, LEFT CLINICAL INFORMATION: Pain in left hand COMPARISON: 04/10/2023 TECHNIQUE: PA, lateral, and oblique views of the left hand. FINDINGS: There is no interval change in appearance of comminuted mildly displaced fracture through the neck of the fifth metacarpal. Soft tissues are unremarkable. XR/XR hand LT min 3V IMPRESSION: No interval change
== END 2023-04-27 08:43 | disposition home or self-care (01) ==
LOC: HO.HOSX 08:42
PROVIDERS: Visit Provider Orthopaedic Surgery
DX: S62.337D Displaced fracture of neck of fifth metacarpal bone, left hand, subsequent encounter for fracture with routine healing (principal)
CPT/HCPCS: 73130; 99212

== ENCOUNTER 2023-04-27 13:13 | Outpatient (REF) | payer OTHER, SELFPAY ==
[2023-04-27 15:00] LABS: Estimated Average Glucose 114 mg/dL; Hemoglobin A1c % 5.6 % (<6.0)
[2023-04-27 15:21] LABS: Anion Gap 11 (12-20); Blood Urea Nitrogen 12 mg/dL (9-16); Carbon Dioxide 28 mmol/L (22-29); Chloride 106 mmol/L (96-108); Estimated Glomerular Filt Rate > 60; Glucose Fasting 96 mg/dL (60-99); Sodium 141 mmol/L (135-145)
== END 2023-04-27 13:14 | disposition home or self-care (01) ==
LOC: HO.LAB 13:13
PROVIDERS: PCP Family Medicine; Visit Provider Family Medicine
DX: I10 Essential (primary) hypertension (principal); R73.9 Hyperglycemia, unspecified
CPT/HCPCS: 36415; 80051; 82565; 82947; 83036; 84520

== ENCOUNTER 2023-04-27 14:12 | Outpatient (AMB) | payer OTHER, SELFPAY ==
--- NOTE | 2023-04-27 15:05 | A.OFFVIS_ITS ---
Intake Vital Signs 04/27/23 15:21 Height 5 ft 9 in Weight 291 lb BMI 43.0 Intake Visit Reasons: OV-LT hand boxers fx xrays/castoff Intake Note: Dangelo 43 yr old male presents today for his follow up visit for his Fracture of left fifth metacarpal bone from 04/04/23. Cats removed and xrays updated in office. States he has soreness since cast was removed. Allergies No Known Allergies Allergy (Verified 04/10/23 12:49) HPI OV-LT hand boxers fx xrays/castoff HPI Details The patient is a 43-year-old man who works in a [employer] center. He sustained a left 5th metacarpal neck/head fracture on 04/04/2023. He was placed in a short-arm cast and is scheduled today for follow-up and radiographs. He says it hurts less than it did. [facility] Medical History (Updated 04/12/23 @ 15:05 by Jermaine Cardozo PA-C) Dyspnea on exertion Morbid obesity RBBB Family History Mother No problems noted. Father No problems noted. Maternal Aunt Heart problem Social History (Updated 04/10/23 @ 12:52 by Kayley Redmond) Alcohol intake: never Patient Tobacco Use Status: Never used Tobacco Current occupational status: employed Current occupation: right hand dominant Physical Exam Vital Signs: BMI result Body Mass Index 43.0 Extrem Other: The patient was alert oriented and in no acute distress. Is not particularly tender to palpation at the fracture site today. No visible rotational or angular deformity. He does have some stiffness but his index middle and ring fingers can be brought to a fist and back into full extension. The small finger MCP joint can be brought to about 80 degrees of flexion. The PIP joint is supple but he does have some extrinsic tightness. I showed him some exercises that he can work on before being seen by OT. Cap refill brisk and sensation intact. Radiographs three views of his left hand were reviewed by me today in clinic. They show a minimally displaced left 5th metacarpal neck/head fracture with some evidence of interval bony healing and satisfactory fracture alignment. Office Procedures Fracture Care Details: Please bill fracture care only if it was not already build in previous appointments. Left Fifth metacarpal fracture Fracture Billing Code: Fracture Billing Code Assessment & Plan Assessment & Plan (1) Fracture of fifth metacarpal bone: Code(s): S62.308A - Unspecified fracture of other metacarpal bone, initial encounter for closed fracture Qualifiers: Encounter type: initial encounter Metacarpal location: neck Fracture alignment: displaced Laterality: left Plan Assessment and plan: 1. Left 5th metacarpal neck/shaft fracture Date of injury 04/04/2023. This was managed in a cast for the last 3 weeks. He appears to be healing well. I am discontinuing his cast today. I showed him some stretching exercises and range of motion exercises. I am also referring him for some OT hand therapy. I educated him about this injury. He knows not to participating any heavy or impact type activities. Because he works in the [employer] center going to keep him out of work for another 3 weeks. Follow-up in 3 weeks with new radiographs and assess range of motion. Hopefully we can return him to work at that time. Orders: Orders XR hand LT min 3V Today M79.642 - Pain in left hand OT Evaluation and Treatment Today S62.308A - Unspecified fracture of other metacarpal bone, initial encounter for closed fracture Coding Level of Care Code Global (80286) Diagnoses Fracture of fifth metacarpal bone S62.308A Encounter type: initial encounter Metacarpal location: neck Fracture alignment: displaced Laterality: left CPT Codes Fracture Care - Fracture Billing Code: Fracture Billing Code ([id number])
[2023-04-27 15:21] VITALS: BMI 43.0
== END 2023-04-27 15:36 | disposition home or self-care (01) ==
PROVIDERS: PCP Family Medicine; Visit Provider Orthopaedic Surgery
DX: S62.337A Displaced fracture of neck of fifth metacarpal bone, left hand, initial encounter for closed fracture (principal); S62.327A Displaced fracture of shaft of fifth metacarpal bone, left hand, initial encounter for closed fracture; Z48.89 Encounter for other specified surgical aftercare
CPT/HCPCS: 99024

== ENCOUNTER 2023-05-20 10:27 | Outpatient (AMB) | payer OTHER, SELFPAY ==
--- NOTE | 2023-05-20 10:37 | A.OFFVIS_ITS ---
Intake Intake Visit Reasons: OV-LT hand boxers fx xrays Check ROM Intake Note: Dangelo a 43 year old male presents today for a follow up of left hand boxer fx, DOI 04/04/23. Xrays updated in office. Patient reports OT is going well with improvement of ROM. He has been out of work since his injury and would like to discuss work status. States soreness with making a fist. Allergies No Known Allergies Allergy (Verified 05/20/23 10:43) HPI OV-LT hand boxers fx xrays Check ROM HPI Details 43-year-old male who returns to the [facility] today for a follow-up of left-hand boxer?s fracture, 04/04/23. He states he has soreness in his hand with making a fist but is doing well overall. He continues to work on occupational therapy with benefits. He has been out of work since his injury and would like to discuss his work status. [facility] Medical History (Updated 05/20/23 @ 10:56 by Jermaine Cardozo PA-C) Dyspnea on exertion Morbid obesity RBBB Family History Mother No problems noted. Father No problems noted. Maternal Aunt Heart problem Social History Alcohol intake: never Patient Tobacco Use Status: Never used Tobacco Current occupational status: employed Current occupation: right hand dominant Review of Systems Const All systems reviewed & are unremarkable except as noted in HPI and below Physical Exam Extrem Other: Left hand: Normal to inspection. Mild tenderness over the 5th metacarpal neck. He can make a full fist and fully extend digits. No scissoring or crossing over. NVI. Results Reviewed Results Reviewed: X-rays of the left hand obtained in the office today show healing 5th metacarpal fracture with fracture line still visible. Assessment & Plan Assessment & Plan (1) Fracture of fifth metacarpal bone: Code(s): S62.308A - Unspecified fracture of other metacarpal bone, initial encounter for closed fracture Qualifiers: Encounter type: subsequent encounter Fracture alignment: displaced Laterality: left Metacarpal location: neck Fracture healing: with routine healing Fracture type: closed Qualified Code(s): S62.337D - Displaced fracture of neck of fifth metacarpal bone, left hand, subsequent encounter for fracture with routine healing Plan He will continue to work on his home exercises for ROM and strengthening. I encouraged him to avoid any type of impact activities as the fracture still appears to be healing and because of limitations, he is unable to return to work at this time given the physical expectations his job has. He will remain out of work till I see him back in 4-6 weeks with new x-rays, sooner if needed. Orders: Orders XR hand LT min 3V Today M79.642 - Pain in left hand Patient Instructions: Scribed for Jermaine Cardozo PA-C, by Nathaniel Sanchez biomedical engineering technician, on 05/20/2023 at 10:30 AM EST. I, Jermaine Cardozo PA-C, have personally reviewed and agree with the information entered by the scribe. Coding Level of Care Code Global (56766) Diagnoses Closed displaced fracture of neck of fifth metacarpal bone of left hand with routine healing, subsequent encounter S62.337D Encounter type: subsequent encounter Fracture alignment: displaced Laterality: left Metacarpal location: neck Fracture healing: with routine healing Fracture type: closed
== END 2023-05-20 10:56 | disposition home or self-care (01) ==
PROVIDERS: PCP Family Medicine; Visit Provider Physician Assistant
DX: S62.337D Displaced fracture of neck of fifth metacarpal bone, left hand, subsequent encounter for fracture with routine healing (principal)
CPT/HCPCS: 99024

== ENCOUNTER 2023-05-20 12:35 | Outpatient (REF) | payer OTHER, SELFPAY ==
--- NOTE | ~2023-05-20 | XR_ITS ---
EXAMINATION: XR HAND, LEFT CLINICAL INFORMATION: Pain COMPARISON: Left hand radiograph from 04/27/2023 TECHNIQUE: PA, lateral, and oblique views of the left hand. FINDINGS: Redemonstration of mildly angulated comminuted fracture of the fifth metacarpal neck with slight increased callus formation compatible with healing. Slight negative ulnar variance. Joint spaces and alignment are otherwise maintained. Soft tissues are unremarkable. XR/XR hand LT min 3V IMPRESSION: 1. Redemonstration of mildly angulated comminuted fracture of the fifth metacarpal neck with slight increased callus formation compatible with healing. 2. Slight negative ulnar variance.
== END 2023-05-20 12:36 | disposition home or self-care (01) ==
LOC: HO.HOSX 12:35
PROVIDERS: Visit Provider Physician Assistant
DX: S62.337D Displaced fracture of neck of fifth metacarpal bone, left hand, subsequent encounter for fracture with routine healing (principal); M79.642 Pain in left hand; X58.XXXD Exposure to other specified factors, subsequent encounter
CPT/HCPCS: 73130; 99212

== ENCOUNTER 2023-05-22 14:30 | Outpatient (RCR) | payer OTHER, SELFPAY ==
--- NOTE | 2023-05-04 14:16 | MHC.OT.EP ---
[address] [phone] Occupational Therapy Plan of Care Patient Name: Dangelo Del Castillo Date of Evaluation: 05/04/23 Diagnosis: L 5TH METACARPAL FRACTURE Pain Location: DORSAL ASPECT OF L HAND, D3-D5 AND MEDIAL WRIST 6-7/10 AT REST 9/10 WITH USE ACHY PAIN Pain Score: 6-9/10 Pain Scale Used: Numeric (0 - 10) Aggravating Factors: TIGHT GRASP, CARRYING ITEMS Alleviating Factors: USE OF TYLENOL, NAPROXEN, USING ICE Assessment: MR DEL CASTILLO IS 4 WEEKS, 3 DAYS S/P L BOXERS FRACTURE. HIS CAST WAS REMOVED ON 04/27/23 AND REPORTS MODERATE TO HIGH PAIN WITH ADLs AND LIGHT IADLs. 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 AN 82% LIMITATION IS REPORTED PER THE QUICK DASH ASSESSMENT. ONGOING SKILLED OT IS WARRANTED TO ADDRESS ROM, STRENGTH, COORDINATION, EDEMA MANAGEMENT, PAIN AND RETURN TO ADLs AND IADLs INCLUDING WORK CONDITIONING. Frequency and Duration: The patient will be seen 2X/WEEK FOR 4 WEEKS Short Term Goals: IND HEP IND USE OF HEAT/COLD IND JT PROTECTION AND ACTIVITY MODIFICATION PAINFREE WRIST ROM FUNCTIONAL COORDINATION PER FUNCTIONAL DEXTERITY TEST (<27 SECONDS) COMPLETE TIP TO DPC OF SF Inspector Hot Forgings Goals: TOLERATE LIFTING AND CARRYING >10 POUNDS FOR IADLs AND WORK RELATED TASKS QUICK DASH <50% IND PROGRESSION OF HEP REPORT <4/10 PAIN WITH ADLs AND LIGHT IADLs Treatment Plan: Therapeutic Exercise Therapeutic Activity Home Exercise Program Splinting Neuro Re-ed Patient Education Desensitization/Sensory Re-ed Edema Control ADL Training Ultrasound NMES Iontophoresis Paraffin Fluidotherapy MHP Cold Packs Joint Mobilization Soft Tissue Mobilization Kinesiotaping Other (see comments) Electronically Signed By: ROSIE CHEUNG OTR/L Please Sign and return to therapist. Thank you once again for your referral.
--- NOTE | 2023-05-22 15:04 | MHC.OT.DC ---
[address] [phone] F: [phone] Occupational Therapy Discharge Note Patient Name: Dangelo Del Castillo Provider: Kalyani Pereira Diagnosis: L 5TH METACARPAL FRACTURE Date of Evaluation: 05/04/23 Date of Discharge: 05/22/23 Treatments to Date: 4 Cancellations to Date: 2 No Shows to Date: 0 Discharge Status: Achieved Goals Improved Function Independent with HEP Discharge Summary: MR DEL CASTILLO HAS PROGRESSED WELL WITH HIS OT RX SESSIONS. HE DEMO'S FUNCTIONAL STRENGTH AND ROM OF L SF AND WRIST. MOSTLY PAINFREE WITH IADLs. Pt WITH GOOD UNDERSTANDING OF HEP AND PROGRESSION OF EXERCISES. SUSPECT Pt WILL CONT TO IMPROVE STRENGTH WHILE FOLLOWING HEP. NO FURTHER SKILLED OT WARRANTED AT THIS TIME. D/C OT Electronically Signed By: MELINDA SAMUELS/Frankie Reviewed/agree with student documentation: N/A Therapist: Please Sign and return to therapist, thank you for your referral.
== END 2023-05-22 15:05 | disposition home or self-care (01) ==
LOC: HO.OT 14:30
PROVIDERS: PCP Family Medicine; Visit Provider Orthopaedic Surgery
DX: S62.308D Unspecified fracture of other metacarpal bone, subsequent encounter for fracture with routine healing (principal)
CPT/HCPCS: 97110; 97166

== ENCOUNTER 2023-07-01 10:08 | Outpatient (REF) | payer OTHER, SELFPAY ==
--- NOTE | ~2023-07-01 | XR_ITS ---
EXAMINATION: XR HAND, LEFT CLINICAL INFORMATION: Pain in left hand COMPARISON: Left hand 05/20/2023 TECHNIQUE: PA, lateral, and oblique views of the left hand. FINDINGS: There is no change in position or alignment of the mildly angulated comminuted fracture of the fifth metacarpal neck with significant blurring of the fracture clefts compatible with healing. Slight negative ulnar variance. Joint spaces and alignment are otherwise maintained. Soft tissues are unremarkable. XR/XR hand LT min 3V IMPRESSION: Healing fracture of the neck of the fifth metacarpal.
== END 2023-07-01 10:09 | disposition home or self-care (01) ==
LOC: HO.HOSX 10:08
PROVIDERS: Visit Provider Physician Assistant
DX: S62.337D Displaced fracture of neck of fifth metacarpal bone, left hand, subsequent encounter for fracture with routine healing (principal); M79.642 Pain in left hand; X58.XXXD Exposure to other specified factors, subsequent encounter
CPT/HCPCS: 73130; 99212

== ENCOUNTER 2023-07-01 12:46 | Outpatient (AMB) | payer OTHER, SELFPAY ==
--- NOTE | 2023-07-01 12:55 | MHC.OFFVIS ---
Intake Vital Signs 07/01/23 12:58 Height 5 ft 9 in Weight 291 lb BMI 43.0 Intake Visit Reasons: OV-Left 5th metacarpal fx w xrays Intake Note: Dangelo a 43 year old male presents today for a follow up of left hand boxer fx, DOI 04/04/23. Xrays updated while in office. Patient reports he is doing really well, states mild discomfort in his wrist in the mornings. He has no concerns today. Allergies No Known Allergies Allergy (Verified 07/01/23 12:57) HPI OV-Left 5th metacarpal fx w xrays HPI Details 43-year-old male who returns to the office today for a follow-up of left 5th metacarpal fracture, 04/04/23. He continues to have mild discomfort in his wrist in the mornings but is doing well otherwise. He has no other concerns today. COUNT INCLUDES THE [facility] Medical History (Updated 05/20/23 @ 10:56 by Jermaine Cardozo PA-C) Dyspnea on exertion Morbid obesity RBBB Family History Mother No problems noted. Father No problems noted. Maternal Aunt Heart problem Social History Alcohol intake: never Patient Tobacco Use Status: Never used Tobacco Current occupational status: employed Current occupation: right hand dominant Review of Systems Const All systems reviewed & are unremarkable except as noted in HPI and below Physical Exam Vital Signs: BMI result Body Mass Index 43.0 Extrem Other: Left hand: Normal to inspection. No bony abnormality no tenderness over the fracture site. He can make a full fist and fully extend digits with no angulation or scissoring. NVI. Results Reviewed Results Reviewed: X-rays of the left hand obtained in the office today show a well healed 5th metacarpal neck fracture. Assessment & Plan Assessment & Plan (1) Fracture of fifth metacarpal bone: Code(s): S62.308A - Unspecified fracture of other metacarpal bone, initial encounter for closed fracture Qualifiers: Encounter type: subsequent encounter Fracture alignment: displaced Fracture healing: with routine healing Fracture type: closed Laterality: left Metacarpal location: neck Qualified Code(s): S62.337D - Displaced fracture of neck of fifth metacarpal bone, left hand, subsequent encounter for fracture with routine healing Plan He will increase activity as tolerated without restrictions. He can return to work without restrictions and see me back as needed. Orders: Orders XR hand LT min 3V Today M79.642 - Pain in left hand Patient Instructions: Scribed for Jermaine Cardozo PA-C, by Nathaniel Sanchez neuropsychology medical consultant, on 07/01/2023 at 1:00 PM EST. I, Jermaine Cardozo PA-C, have personally reviewed and agree with the information entered by the scribe. Coding Level of Care Code Est Pt Level 3 (08240) Diagnoses Closed displaced fracture of neck of fifth metacarpal bone of left hand with routine healing, subsequent encounter S62.337D Encounter type: subsequent encounter Fracture alignment: displaced Fracture healing: with routine healing Fracture type: closed Laterality: left Metacarpal location: neck
[2023-07-01 12:58] VITALS: BMI 43.0
== END 2023-07-01 13:05 | disposition home or self-care (01) ==
PROVIDERS: PCP Family Medicine; Visit Provider Physician Assistant
DX: S62.337D Displaced fracture of neck of fifth metacarpal bone, left hand, subsequent encounter for fracture with routine healing (principal)
CPT/HCPCS: 99024

== ENCOUNTER 2023-07-30 13:57 | Outpatient (AMB) | payer OTHER, SELFPAY ==
[2023-07-30 14:04] VITALS: BP 118/80; PULSE 70; O2SAT 98; BMI 43.6
--- NOTE | 2023-07-30 14:04 | MHC.OFFVIS ---
Intake Vital Signs 07/30/23 14:04 Height 5 ft 9 in Weight 295 lb 6.711 oz BMI 43.6 BP 118/80 Blood Pressure Location Lt brachial Position Sitting Pulse 70 Pulse Source Pulse Oximeter Pulse Oximetry (%) 98 Oxygen Delivery Method Room Air Intake Visit Reasons: nocturnal hypoxemia Intake Note: pt is here for follow up and he feeling good using c-pap with oxygen. 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 WHICH HE HAS BEEN USING VERY REGULARLY, AND CLAIMS THAT HE IS MUCH IMPROVED. HIS SLEEP IS MUCH BETTER AND HE IS MORE ACTIVE AND REFRESHED DURING THE DAYTIME. OVERNIGHT OXIMETRY RECORDING IN 2022 SHOWED THAT THERE WAS NO RESIDUAL HYPOXEMIA . FAR THE WEIGHT IS CONCERNED HE TRIES TO CUT DOWN THE CALORIES INTAKE BUT HE HAS NOT BEEN ABLE TO LOSE MUCH WEIGHT. PFS Medical History Dyspnea on exertion Morbid obesity RBBB Family History Mother No problems noted. Father No problems noted. Maternal Aunt Heart problem Social History Alcohol intake: never Patient Tobacco Use Status: Never used Tobacco Current occupational status: employed Current occupation: right hand dominant Review of Systems Const All systems reviewed & are unremarkable except as noted in HPI and below Eyes Reports no additional complaints ENT Reports no additional complaints Card Denies chest pain, Denies leg edema and Denies dyspnea on exertion Resp Reports as per HPI and Denies dyspnea on exertion GI Reports heartburn (Intermittent controlled with omeprazole) Reports no additional complaints Musc Reports no additional complaints Skin/Breast Reports system reviewed and no additional complaints, except as documented Neuro Reports no additional complaints Psych Reports no additional complaints Endo Reports no additional complaints Physical Exam Vital Signs: Last Vital Signs Pulse 70 07/30/23 14:04 BP 118/80 07/30/23 14:04 Pulse Ox 98 07/30/23 14:04 Oxygen Delivery Method Room Air 07/30/23 14:04 BMI result Body Mass Index 43.6 Patient is still morbidly obese, with a round face and crowded oropharynx. Const General: healthy appearing (Except for being overweight), comfortable, no acute distress, alert and awake Orientation/consciousness: patient oriented x3 HEENT Head: Yes normal to inspection General nose exam: No nasal polyps present and No nasal discharge present Face and sinus: Yes sinuses nontender Mouth: oropharynx normal Throat: Yes posterior oropharynx normal Eyes General: appearance normal, both eyes and all related structures Neck Neck: Yes normal visual inspection, Yes no lymphadenopathy, Yes trachea midline and Yes no JVD Thyroid: Thyroid normal Chest Chest palpation & inspection: normal inspection of the chest, normal palpation of entire chest wall and no tenderness Resp Effort & Inspection: normal respiratory effort Auscultation: clear to auscultation bilaterally, no crackles and no wheezes Cardio Palpation: normal PMI Rate: regular rate Rhythm: regular rhythm Heart sounds: no gallops and no murmurs Peripheral pulses: Peripheral pulses 2+ throughout GI Palpation (GI): Soft to palpation, nontender, No hepatosplenomegaly present and no masses Auscultation: normal bowel sounds Back/Spine/Pelvis Thoracic/Lumbar Spine: thoracic and lumbar spine normal to inspection Skin General skin exam: no rashes or lesions noted Neuro General: patient oriented x3 and no focal motor deficits Cranial nerves: Yes CN's II-XII intact bilaterally Extrem General: Yes normal to inspection, Yes no clubbing, cyanosis or edema and Yes no calf tenderness Psych Appearance: grossly normal and well kempt Speech and movement: Normal speech and movement present Results Reviewed Results Reviewed: COMPLIANCE REPORT FOR THE LAST 30 NIGHTS. IS REVIEWED HE HAS USED 30/30 NIGHTS., 100% AVERAGE USE PER NIGHT. 5 HOURS 18 MINUTES THERE IS NOT MUCH AIR LEAK. RESIDUAL AHI 0.5 Assessment & Plan Assessment & Plan (1) Morbid obesity: Comment: PATIENT REMAINS MORBIDLY OBESE, Code(s): E66.01 - Morbid (severe) obesity due to excess calories Plan: URGED TO GO ON A RESTRICTED CALORIES DIET, AND ALSO START DOING DAILY EXERCISE SUCH WALKING AT LEAST 2 MILES A DAY. (2) CELE (obstructive sleep apnea): Comment: KNOWN CASE OF SEVERE OBSTRUCTIVE SLEEP APNEA. AHI =48/hr and oxygen ella was 59%. PATIENT HAS BEEN USING THE CPAP, REGULARLY AND THE COMPLIANCE IS GOOD. RESIDUAL AHI=0.5 Code(s): G47.33 - Obstructive sleep apnea (adult) (pediatric) Plan: HE WAS COMMENDED FOR HIS EXCELLENT COMPLIANCE. ADVISED TO CONTINUE USING THE CPAP REGULARLY Coding Level of Care Code Est Pt Level 3 (36589) Diagnoses Morbid obesity E66.01 CELE (obstructive sleep apnea) G47.33
== END 2023-07-30 14:18 | disposition home or self-care (01) ==
PROVIDERS: PCP Student in an Organized Health Care Education/Training Program; Visit Provider Internal Medicine
DX: E66.01 Morbid (severe) obesity due to excess calories (principal); G47.33 Obstructive sleep apnea (adult) (pediatric)
CPT/HCPCS: 99213

== ENCOUNTER → 2023-07-30 13:57 | Outpatient (BNVA) | payer OTHER, SELFPAY | PROVIDERS: PCP Student in an Organized Health Care Education/Training Program; Visit Provider Internal Medicine | DX: G47.33 Obstructive sleep apnea (adult) (pediatric) (principal); E66.01 Morbid (severe) obesity due to excess calories | CPT/HCPCS: 99212 ==

== ENCOUNTER 2023-11-04 09:52 | Outpatient (REF) | payer OTHER, SELFPAY ==
[2023-11-04 10:54] LABS: Estimated Average Glucose 117 mg/dL; Hemoglobin A1c % 5.7 % (<6.0)
[2023-11-04 11:15] LABS: Anion Gap 13 (12-20); Blood Urea Nitrogen 12 mg/dL (9-16); Carbon Dioxide 23 mmol/L (22-29); Chloride 109 mmol/L (96-108); Estimated Glomerular Filt Rate > 60; Potassium 4.3 mmol/L (3.3-5.1); Sodium 141 mmol/L (135-145)
== END 2023-11-04 09:53 | disposition home or self-care (01) ==
LOC: HO.LAB 09:52
PROVIDERS: PCP Family Medicine; Visit Provider Family Medicine
DX: I10 Essential (primary) hypertension (principal); R73.9 Hyperglycemia, unspecified
CPT/HCPCS: 36415; 80051; 82565; 83036; 84520

== ENCOUNTER 2023-11-05 16:46 | Emergency (ER) | payer OTHER, SELFPAY ==
--- NOTE | ~2023-11-05 | XR_ITS ---
EXAMINATION: XR CHEST CLINICAL INFORMATION: Left-sided chest pain. Shortness of breath. COMPARISON: Chest radiograph dated 08/01/2022. TECHNIQUE: 2 views of the chest were obtained. FINDINGS: The trachea is in normal anatomic position. Heart size is normal. Both lungs are clear. No pleural effusion. No pneumothorax. No acute osseous abnormality. XR/XR chest 2V IMPRESSION: No acute cardiopulmonary disease. Stable appearance of the heart and lungs.
--- NOTE | 2023-11-05 16:47 | ECG_ITS ---
Test Reason : CP Blood Pressure : / mmHG Vent. Rate : 062 BPM Atrial Rate : 062 BPM P-R Int : 160 ms QRS Dur : 082 ms QT Int : 406 ms P-R-T Axes : 058 012 029 degrees QTc Int : 412 ms Normal sinus rhythm Normal ECG When compared with ECG of 30-MAR-2009 18:09, No significant change was found Referred By: Suellen Freitas Electronically Signed By:Matheus Peter
[2023-11-05 16:58] VITALS: BP 154/88; PULSE 60; RESP 18; TEMP 36.8; O2SAT 99; BMI 46.1
--- NOTE | 2023-11-05 16:58 | ED.CHESTPAIN ---
HPI - Chest Pain General Chief Complaint: Chest Pain Stated Complaint: Chest pain Time Seen by Provider: 11/05/23 21:39 Source: patient Mode of arrival: ambulatory Limitations: no limitations History of Present Illness ED Provider: DR. Boyce HPI narrative: 43-year-old male history of CELE, obesity, presented for evaluation of left-sided chest pain. Patient was walking from work to home yesterday when he felt left-sided chest pain, pain was described as dull aching pain localized to the left side with no radiation, pain has been persistent since yesterday, patient also admitted to shortness of breath with exertion patient was history of chronic exertional dyspnea related to his obesity, no lower extremity swelling, patient had previous accident to his left leg was fracture and his complaining of chronic swelling of the left leg but no unusual pain or unusual swelling to the left leg. No fever, no chills, no recent travel, no recent prolonged immobilization, no lower extremity unusual swelling or tenderness. Related Data Previous Rx's ?Medication ?Instructions ?Recorded losartan 50 mg tablet 50 mg PO DAILY #30 tabs 05/20/23 metoprolol succinate 50 mg 50 mg PO QAM 30 days #30 tabs 05/20/23 tablet,extended release 24 hr Allergies Allergy/AdvReac Type Severity Reaction Status Date / Time No Known Allergies Allergy Verified 11/05/23 16:59 Review of Systems Review of Systems: All other systems are reviewed and are negative Constitutional: Reports as per HPI and Reports no additional constitutional complaints Eyes: Reports as per HPI and Reports no additional eye complaints Reports system reviewed and no additional complaints, except as documented Cardiovascular: Reports as per HPI and Reports no additional cardiovascular complaints Respiratory: Reports as per HPI and Reports no additional respiratory complaints Gastrointestinal: Reports as per HPI and Reports no additional gastrointestinal complaints Genitourinary: Reports no additional female genitourinary complaints Musculoskeletal: Reports no additional musculoskeletal complaints Skin/Breast: Reports system reviewed and no additional complaints, except as docu Psychiatric: Reports no additional psychiatric complaints Endocrine: Reports no additional endocrine complaints Hematologic/Lymphatic: Reports no additional hematologic/lymphatic complaints Allergic/Immunologic: Reports no additional allergic/immunologic complaints Reports system reviewed and no additional complaints, except as documented and Reports Abnormal speech present PMFSH Past Medical History Medical History Dyspnea on exertion Morbid obesity RBBB Family History Family History Mother No problems noted. Father No problems noted. Maternal Aunt Heart problem Social History Social History Alcohol intake: never Patient Tobacco Use Status: Never used Tobacco Smoked in Last 30 Days: No Use of substances other than those prescribed or required for medical reasons: No Advance Directives: No Advance Directives Information Provided: No Do you have a plan to hurt others: No Plan Current occupational status: employed Current occupation: right hand dominant Physical Exam Vital Signs: Vital Signs: Last Vital Signs Temp 98.1 F 11/05/23 22:19 Pulse 59 11/05/23 22:19 Resp 20 11/05/23 22:19 BP 142/84 H 11/05/23 22:19 Pulse Ox 98 11/05/23 22:19 O2 Del Method Room Air 11/05/23 22:19 BMI result Body Mass Index 46.1 Vital signs have been reviewed and appear to be correct. Blood pressure elevated. Heart rate normal. Respiratory rate normal. Temperature normal. Oxygen saturation normal. Appearance: Alert. Oriented X3. No acute distress. Head: Normal external exam. Normocephalic. Atraumatic. No Elias signs noted. No raccoon eyes noted Eyes: PERRLA. EOMI. Conjunctiva and sclera normal. Eyelids normal. ENT: TM's Normal. Pharynx normal. Uvula midline. Moist mucous membranes. No trismus noted. No drooling noted. No muffled voice noted. Neck: Normal inspection. Neck supple. FROM. No adenopathy. Thyroid Normal. No meningeal signs. No neck mass noted. CVS: Normal heart rate and rhythm. Heart sound normal. No murmurs noted. Pulses normal throughout. Respiratory: No respiratory distress. Painless inspiration. Breath sounds normal. No wheezes/rales/rhonchi noted. Chest nontender. No accessory muscle usage noted or decreased air movement noted. Abdomen: Soft and nontender. Bowel sounds normal in all 4 quadrants. No distention noted. No organomegaly noted. No visible injury noted. Back: No CVA tenderness. Full range of motion noted. Skin: Skin warm and dry. Normal skin color. Normal skin turgor. No rashes/lesions/lacerations noted. Extremities: No lower extremity edema. Extremities exhibit normal range of motion. Extremities nontender. Neuro: Oriented X 3. Cranial nerve exam: II-XII are grossly intact No motor deficit. No sensory deficit. Reflexes normal. Course Course Course Narrative: This is a Rapid Medical Examination (RME) performed by Vera Freitas PA-C in triage. Full HPI, ROS, assessment and treatment plan per primary provider in the Main ED. 43 yo male hx of obesity, CELE, HTN, RBBB here for eval of sob, dyspnea on exertion, and left sided chest pain x1 day. reports feel odd . symptoms present at rest, worsen with exertion. takes metoprolol and losartan daily. denies recent travel or long car rides. Denies cough, hemoptysis, pain. lungs clear. rrr. no peripheral edema. no calf tenderness. Plan: labs, ekg, trop, cxr ordered Reevaluation(s) Reevaluation #1: A 43-year-old male nonsmoker with history of hypertension had a previous evaluation by Dr. Adan (lather apprentice) for RBBB that was related to his obesity, came in for exertional chest pain evaluation had normal troponin x2, D-dimer is unremarkable, patient has no risk for pulmonary embolism or ACS. Will talk to the encouraged to continue with weight loss, follow-up with the lather apprentice Dr. Adan for another evaluation. Time: 21:53 Medical Decision Making Differential Diagnosis Differential Diagnoses: The differential diagnosis associated with the presentation includes (ACS, pneumonia, pleural effusion, pneumothorax, viral pneumonia, pulmonary embolism, congestive heart failure, electrolyte derangement, severe anemia.) Admission/Observation Consideration of admission/observation: Escalation of care including admission/observation considered Lab Data MDM Lab Attestation statement: I reviewed the patient's lab results. 11/05/23 17:08 11/05/23 17:08 Labs: Lab Results 11/05/23 11/05/23 Range/Units 17:08 19:53 WBC 7.9 (4.8-10.8) X10*3/uL RBC 4.32 L (4.60-5.80) X10*6/uL Hgb 10.7 L (14.0-18.0) g/dl Hct 34.7 L (42.0-52.0) % MCV 80.3 (80.0-98.0) fL MCH 24.8 L (27.0-33.0) pg MCHC 30.8 L (31.0-36.0) g/dl RDW 15.2 (11.0-16.0) % Plt Count 206 (160-400) X10*3/uL MPV 10.2 (9.4-12.4) fL Immature Gran % (Auto) 0.3 (0.0-0.4) % Neut % (Auto) 62.1 (45-73) % Lymph % (Auto) 23.2 (20-40) % [place] % (Auto) 10.5 (2-11) % Eos % (Auto) 3.3 (0-4) % Baso % (Auto) 0.6 (0-2) % Lymph # (Auto) 1.8 (1.2-4.9) X10*3/uL [place] # (Auto) 0.8 (0.1-1.2) X10*3/uL Eos # (Auto) 0.3 (0.0-0.4) X10*3/uL Baso # (Auto) 0.1 (0.0-0.2) X10*3/uL Abs Immat Gran (auto) 0.02 (0.00-0.03) X10*3/uL Absolute Neuts (auto) 4.9 (2.0-8.3) x10*3/uL Absolute Nucleated RBC 0.000 (0.0-0.012) X10*3/uL Nucleated RBC % (auto) 0.0 (0.0-0.2) /100WBC PT 12.3 (11.1-13.3) SEC INR 1.0 (0.9-1.1) D-Dimer High Sensitivty < 150 NG/ML Sodium 143 (135-145) mmol/L Potassium 3.9 (3.3-5.1) mmol/L Chloride 110 H (96-108) mmol/L Carbon Dioxide 24 (22-29) mmol/L Anion Gap 13 (12-20) BUN 16 (9-16) mg/dL Creatinine 1.06 (0.5-1.4) mg/dL Estim Creat Clear Calc 124.5 Estimated GFR > 60 Random Glucose 91 (60-115) mg/dL Calcium 9.2 (8.4-10.2) mg/dL Magnesium 2.1 (1.6-2.6) mg/dL Total Bilirubin 0.3 (0.0-1.0) mg/dL AST 23 (5-37) U/L ALT 27 (0-40) U/L Alkaline Phosphatase 54 (39-117) U/L Troponin I High Sens < 2.7 < 2.7 (<3.5-35.0) ng/L Total Protein 7.0 (6.5-8.0) g/dL Albumin 4.0 (3.5-5.0) g/dL Lipase 15 (8-78) U/L Independent Interpretation I performed an independent interpretation of an: EKG (Normal sinus rhythm at 62 beats per minutes, normal axis deviation, normal intervals, no ST-T changes, no significant change from previous EKG in 2008.) and Plain X-Ray (No acute intrathoracic pathology) Radiology Impression Discussion of test interpretation with radiology: I have reviewed the radiologist's reading. Discharge Plan Discharge Clinical Impression: Atypical chest pain Patient Disposition: Home, Self-Care Instructions: Chest Pain (DC) Prescriptions: No Action losartan 50 mg tablet 50 mg PO DAILY Qty: 30 6RF metoprolol succinate 50 mg tablet extended release 24 hr 50 mg PO QAM 30 Days Qty: 30 6RF Referrals: Andrei Vieira MD [Primary Care Provider] - Shay Adan MD [Physician] - Print Language: Slovak
[2023-11-05 17:12] LABS: MANUAL DIFF FLAG NO
[2023-11-05 17:13] LABS: Basophils Absolute Auto 0.1 X10*3/uL (0.0-0.2); Basophils Percent Auto 0.6 % (0-2); Eosinophils Absolute Auto 0.3 X10*3/uL (0.0-0.4); Eosinophils Percent Auto 3.3 % (0-4); Hematocrit 34.7 % (42.0-52.0); Hemoglobin 10.7 g/dl (14.0-18.0); Imm Gran Abs Auto 0.02 X10*3/uL (0.00-0.03); Imm Gran Pct Auto 0.3 % (0.0-0.4); Lymphocytes Absolute Auto 1.8 X10*3/uL (1.2-4.9); Lymphocytes Percent Auto 23.2 % (20-40); Mean Corpuscular HGB Conc 30.8 g/dl (31.0-36.0); Mean Corpuscular Hemoglobin 24.8 pg (27.0-33.0); Mean Corpuscular Volume 80.3 fL (80.0-98.0); Mean Platelet Volume 10.2 fL (9.4-12.4); Monocytes Absolute Auto 0.8 X10*3/uL (0.1-1.2); Monocytes Percent Auto 10.5 % (2-11); Neutrophils Absolute Auto 4.9 x10*3/uL (2.0-8.3); Neutrophils Percent Auto 62.1 % (45-73); Platelet Count 206 X10*3/uL (160-400); Red Blood Count 4.32 X10*6/uL (4.60-5.80); Red Cell Distribution Width 15.2 % (11.0-16.0); White Blood Count 7.9 X10*3/uL (4.8-10.8)
[2023-11-05 17:19] LABS: Prothrombin Time 12.3 SEC (11.1-13.3)
[2023-11-05 17:27] LABS: Alanine Aminotransferase 27 U/L (0-40); Alkaline Phosphatase 54 U/L (39-117); Anion Gap 13 (12-20); Aspartate Amino Transferase 23 U/L (5-37); Bilirubin Total 0.3 mg/dL (0.0-1.0); Blood Urea Nitrogen 16 mg/dL (9-16); Calcium 9.2 mg/dL (8.4-10.2); Carbon Dioxide 24 mmol/L (22-29); Chloride 110 mmol/L (96-108); Creatinine Clr Calc Pharmacy 124.5; Estimated Glomerular Filt Rate > 60; Glucose Random 91 mg/dL (60-115); Lipase 15 U/L (8-78); Magnesium 2.1 mg/dL (1.6-2.6); Potassium 3.9 mmol/L (3.3-5.1); Sodium 143 mmol/L (135-145)
[2023-11-05 17:35] LABS: Troponin-I High Sensitivity < 2.7 ng/L (<3.5-35.0)
[2023-11-05 20:24] LABS: Troponin-I High Sensitivity < 2.7 ng/L (<3.5-35.0)
[2023-11-05 21:42] VITALS: BP 138/85; PULSE 60; RESP 16; TEMP 36.8; O2SAT 98
[2023-11-05 22:01] LABS: D Dimer High Sensitivity < 150 NG/ML
[2023-11-05 22:19] VITALS: BP 142/84; PULSE 59; RESP 20; TEMP 36.7; O2SAT 98
[2023-11-05 22:35] VITALS: BP 134/87; PULSE 58; RESP 11; TEMP 36.7; O2SAT 98
== END 2023-11-05 22:47 | disposition home or self-care (01) ==
PROVIDERS: Physician Assistant; Physician Assistant Medical; Emergency Provider Emergency Medicine; PCP Family Medicine
DX: R07.9 Chest pain, unspecified (principal); R06.02 Shortness of breath; I10 Essential (primary) hypertension; I45.10 Unspecified right bundle-branch block
CPT/HCPCS: 36415; 71046; 80053; 83690; 83735; 84484; 85025; 85379; 85610; 93005; 99283; 99285

== ENCOUNTER → 2023-11-05 16:47 | Outpatient (BNV) | payer OTHER, SELFPAY | PROVIDERS: Emergency Provider Emergency Medicine; PCP Family Medicine; Visit Provider Internal Medicine Cardiovascular Disease | DX: R07.9 Chest pain, unspecified (principal) | CPT/HCPCS: 93010 ==

== ENCOUNTER → 2023-11-12 09:45 | Outpatient (BNVA) | payer OTHER, SELFPAY | PROVIDERS: PCP Family Medicine; Visit Provider Nurse Practitioner Family ==

== ENCOUNTER 2023-12-24 11:54 | Outpatient (REF) | payer OTHER, SELFPAY ==
[2023-12-24 12:11] LABS: MANUAL DIFF FLAG NO
[2023-12-24 12:39] LABS: Basophils Absolute Auto 0.1 X10*3/uL (0.0-0.2); Basophils Percent Auto 0.7 % (0-2); Eosinophils Absolute Auto 0.2 X10*3/uL (0.0-0.4); Eosinophils Percent Auto 2.5 % (0-4); Hematocrit 37.8 % (42.0-52.0); Hemoglobin 11.6 g/dl (14.0-18.0); Imm Gran Abs Auto 0.02 X10*3/uL (0.00-0.03); Imm Gran Pct Auto 0.3 % (0.0-0.4); Immature Retic Fraction 15.2 % (2.3-13.4); Lymphocytes Absolute Auto 1.6 X10*3/uL (1.2-4.9); Lymphocytes Percent Auto 24.3 % (20-40); Mean Corpuscular HGB Conc 30.7 g/dl (31.0-36.0); Mean Corpuscular Hemoglobin 24.5 pg (27.0-33.0); Mean Corpuscular Volume 79.7 fL (80.0-98.0); Mean Platelet Volume 10.8 fL (9.4-12.4); Monocytes Absolute Auto 0.7 X10*3/uL (0.1-1.2); Monocytes Percent Auto 10.7 % (2-11); Neutrophils Absolute Auto 4.2 x10*3/uL (2.0-8.3); Neutrophils Percent Auto 61.5 % (45-73); Platelet Count 213 X10*3/uL (160-400); Red Blood Count 4.74 X10*6/uL (4.60-5.80); Red Cell Distribution Width 14.9 % (11.0-16.0); Retic HGB Equivalent 28.1 pg (30.0-35.0); Reticulocyte Percent 1.1 % (0.5-1.8); Reticulocytes Absolute 0.053 X10*6/uL (0.026-0.095); White Blood Count 6.8 X10*3/uL (4.8-10.8)
[2023-12-24 13:29] LABS: Iron 35 mcg/dL (45-160); Percent Iron Saturation 10 % (15-50); Total Iron Binding Capacity 334 mcg/dL (228-428); Unsaturated Iron Binding 299 ug/dL
[2023-12-24 13:44] LABS: Ferritin 9 ng/mL (20-250)
[2023-12-24 13:56] LABS: Folate 10.7 ng/mL (> or = 4.0); Vitamin B12 748 pg/mL (200-900)
== END 2023-12-24 11:55 | disposition home or self-care (01) ==
LOC: HO.LAB 11:54
PROVIDERS: PCP Family Medicine; Visit Provider Family Medicine
DX: D64.9 Anemia, unspecified (principal)
CPT/HCPCS: 36415; 82607; 82728; 82746; 83540; 85025; 85045

== ENCOUNTER 2023-12-31 11:36 | Outpatient (REF) | payer OTHER, SELFPAY ==
[2023-12-31 12:22] LABS: COVID-19 Test Negative (Negative); IDNOW Serial# 152EDE1D
[2023-12-31 13:47] LABS: C Reactive Protein 0.19 mg/dL (< or = 0.50)
[2023-12-31 14:00] LABS: Erythrocyte Sedimentation Rate 13 MM/HR (0-15)
== END 2023-12-31 11:37 | disposition home or self-care (01) ==
LOC: HO.10HDL 11:36
PROVIDERS: Visit Provider Family Medicine
DX: R50.9 Fever, unspecified (principal)
CPT/HCPCS: 36415; 85652; 86140; 87635

== ENCOUNTER → 2024-01-13 08:54 | Outpatient (REF) | payer OTHER, SELFPAY ==
--- NOTE | 2024-01-13 08:57 | CA_ITS ---
Transthoracic Echocardiogram Patient (Last, First, Middle): Dangelo Cherry, Gender: Male Date of : 1980 Age: 43 Procedure Date: 01/13/2024 Procedure Type: Transthoracic Echocardiogram Location: OP Height: 175.26 cm Weight: 124.29 kg BSA: 2.36 m2 Heart Rate: bpm BP: 129 / 78 mmHg Higher Level Teaching Assistant: ROSSANA Referring MD: Chrissy Tong FAMILY PRACTICE PHYSICIAN ASSISTANT-Peña Symptoms: I10 - Essential (primary) hypertension Study Quality: Adequate Conclusions: - Essentially normal study Findings Left Ventricle Normal left ventricular size, thickness, and systolic function. The visually estimated ejection fraction is between 55-60%. Diastolic function is normal for age. Peak GLS is -18.1%, within normal limits Right Ventricle Normal right ventricular cavity size and systolic function. Atria Both atria are normal in size. There is no evidence of interatrial shunt. Aortic Valve Normal aortic valve structure and function. There is no aortic valve stenosis. There is no aortic valve regurgitation. Mitral Valve There is mild anterior and posterior mitral leaflet thickening. There is no mitral valve regurgitation. There is no mitral valve stenosis. Pulmonic Valve The pulmonic valve is likely normal. Tricuspid Valve Likely normal tricuspid valve structure and function. There is trace tricuspid valve regurgitation. The right ventricular systolic pressure is normal. The right ventricular systolic pressure is 30 mmHg. Normal right atrial pressure. There is no evidence of pulmonary hypertension. Great Vessels All visible segments of the aorta are normal in size. The pulmonary artery was not well visualized. Venous The inferior vena cava is normal in size and collapses greater than 50% with inspiration. Pericardium/Pleural There is no evidence of pericardial effusion. Measurements 2D Linear Measurements IVSd: 0.92 0.6-0.9/0.6-1.0 cm LVIDd: 5.21 3.9-5.3/4.2-5.9 cm LVIDd Index: 2.21 2.4-3.2/2.2-3.1 cm/m2 LVIDs: 3.79 2.0-3.6 cm LVPWd: 0.85 0.7-1.1 cm LA Diam: 4.00 2.7-3.8/3.0-4.0 cm LAIDs Index: 1.69 1.5-2.3 cm/m2 LV Mass: 314.89 67-162/88-224 g LV Mass Index: 133.43 43-95/49-115 g/m2 LVOT Diam: 2.40 3.0+(-)1.3 cm 2D Systolic Function EF 4C: 58.80 >55% EF 2C: 62.00 >55% EF BiP: 59.20 >55% Mitral Valve MV Pk E: 0.87 MV PK A: 0.63 MV Decel Time: 211.00 E/A: 1.40 E'Lateral: 13.10 E'Medial: 9.25 E/E' Med: 9.40 E/E' Lat: 6.70 PHT: 62.00 MVA PHT: 3.55 Decel [place]: 4.14 Aortic Valve AoV Pk Ghassan: 1.21 AoV Mn Ghassan: 0.86 AoV VTI: 0.30 AoV Pk Grad: 6.00 Aov Mn Grad: 3.00 DIEGO Cont.VTI: 2.83 LVOT LVOT Pk Ghassan: 0.84 LVOT Mn Ghassan: 0.57 LVOT VTI: 0.19 LVOT Pk Grad: 3.00 LVOT Mn Grad: 2.00 LVOT Diam: 2.40 LVOT Area: 4.52 Diastolic Function MV Pk E: 0.87 MV Pk A: 0.63 E/A: 1.40 E'Medial: 9.25 E/E' Med: 9.40 E' Laterial: 13.10 E/E' Lat: 6.70 Right Ventricle TAPSE (mm): 24.90 TVS' Ghassan: 11.10 Tricuspid Valve TR Pk Ghassan: 2.35 TR Pk Grad: 22.00 RA Press: 8.00 RVSP: 30.00 Great Vessels Aorta Sinus of Valsalva: 3.63 2.0-3.[address] [place]: 2.89 1.7-3.4 cm Ao Asc: 3.30 2.1-3.4 cm Updated in Other Vendor System with Status of Final Tommy Nolan MD electronically signed on 01/13/2024 11:52:14 AM with status of Final
== END ==
LOC: HO.CARD 08:54
PROVIDERS: PCP Family Medicine; Visit Provider Nurse Practitioner Family
DX: I10 Essential (primary) hypertension (principal); G47.33 Obstructive sleep apnea (adult) (pediatric)
CPT/HCPCS: 93306; 93356

== ENCOUNTER → 2024-01-13 08:57 | Outpatient (BNV) | payer OTHER, SELFPAY | PROVIDERS: PCP Family Medicine; Visit Provider Internal Medicine Cardiovascular Disease | DX: I10 Essential (primary) hypertension (principal) | CPT/HCPCS: 93306; 93356 ==

== ENCOUNTER 2024-01-19 14:02 | Outpatient (AMB) | payer OTHER, SELFPAY ==
[2024-01-19 14:08] VITALS: BP 124/82; PULSE 58; BMI 43.2
--- NOTE | 2024-01-19 14:08 | MHC.OFFVIS ---
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 He now has CPAP mask and has been seen by pulmonology. His echocardiogram had shown low normal EF. He now presents for follow-up after recent repeat echocardiogram. Today he reports he is feeling very good overall. He is using his CPAP each night and reports strict compliance. He is not having issues with daytime sleepiness. No chest discomfort at rest or with activity. No shortness of breath, no palpitations, dizziness, presyncope, syncope, PND, orthopnea or edema. He is taking his meds as directed. He walks frequently at work. [facility] Medical History Dyspnea on exertion Morbid obesity RBBB Family History Mother No problems noted. Father No problems noted. Maternal Aunt Heart problem Social History Alcohol intake: never Patient Tobacco Use Status: Never used Tobacco Current occupational status: employed Current occupation: right hand dominant Review of Systems Const All systems reviewed & are unremarkable except as noted in HPI and below ENT Denies dizziness Card Denies chest pain, Denies chest pain at rest, Denies chest pain with activity, Denies rapid heart rate, Denies pedal edema, Denies edema, Denies leg edema, Denies lightheadedness, Denies palpitations, Denies dyspnea, Denies dyspnea on exertion and Denies orthopnea Resp Denies cough, Denies dyspnea and Denies dyspnea on exertion GI Denies hematochezia and Denies change in stool character Musc Denies abnormal gait, Denies limited range of motion, Denies muscle cramps, Denies muscle weakness, Denies numbness, Denies radiating pain into limb, Denies stiffness and Denies tingling Neuro Denies abnormal gait, Denies dizziness, Denies numbness and Denies tingling Endo Denies palpitations Physical Exam Vital Signs: Last Vital Signs Pulse 58 01/19/24 14:08 BP 124/82 01/19/24 14:08 BMI result Body Mass Index 43.2 Const General: cooperative, healthy appearing, comfortable and no acute distress Orientation/consciousness: patient oriented x3 Neck Neck: Yes normal visual inspection and Yes no JVD Resp Effort & Inspection: normal respiratory effort Auscultation: clear to auscultation bilaterally, no rales, no rhonchi and no wheezes Cardio Jugular venous distension: no JVD Rate: regular rate Rhythm: regular rhythm Heart sounds: S1 normal heart sound present, S2 normal heart sound present, no murmurs and no rubs Neuro General: patient oriented x3 Extrem General: Yes normal to inspection and No no pedal edema Psych Appearance: grossly normal Mental Status: mental status grossly normal Speech and movement: Normal speech and movement present Assessment & Plan Assessment & Plan (1) Essential hypertension: Code(s): I10 - Essential (primary) hypertension Category: Medical Plan: History of hypertension. Currently on metoprolol and losartan with good blood pressure control. Blood pressure today 124/82. Labs done 11/05/2023 showed creatinine 1.06. No med changes made today. Low-salt diet reviewed. Continue physical activity as tolerated. Weight loss recommended.Cardiology follow-up in 1 year, sooner if needed (2) CELE (obstructive sleep apnea): Comment: KNOWN CASE OF SEVERE OBSTRUCTIVE SLEEP APNEA. AHI =48/hr and oxygen ella was 59%. PATIENT HAS BEEN USING THE CPAP, REGULARLY AND THE COMPLIANCE IS GOOD. RESIDUAL AHI=0.5 Code(s): G47.33 - Obstructive sleep apnea (adult) (pediatric) Category: Medical Plan: Newer finding of very severe obstructive sleep apnea and hypoxia. He is now being followed by pulmonology and has CPAP mask in use. He reports feeling much better overall with less daytime fatigue and increased energy. The importance of ongoing strict compliance reviewed with him. Echocardiogram was done 10/23/2022 showed EF 51%, no regional wall motion abnormalities and no valve abnormalities. His low normal EF is likely related to his obstructive sleep apnea which had been untreated at that time. Losartan was added to his metoprolol for blood pressure control. A repeat echocardiogram done 01/13/2024 shows normal study, EF 55-60%. Continue current management with CPAP. (3) Nocturnal hypoxemia: Comment: WITH THE USE OF CPAP AT NIGHT. NOCTURNAL HYPOXEMIA IS COMPLETELY RESOLVED, INDICATED BY OVERNIGHT OXIMETRY RECORDING. Code(s): G47.34 - Idiopathic sleep related nonobstructive alveolar hypoventilation Category: Medical Plan: As above (4) RBBB: Code(s): I45.10 - Unspecified right bundle-branch block Category: Medical Plan: Has been seen on prior EKG. No specific treatment at this time. Will plan for repeat EKG next visit. Plan Time spent on chart review, documentation, interview and assessment Coding Level of Care Code Est Pt Level 3 (91654) Diagnoses Essential hypertension I10 CELE (obstructive sleep apnea) G47.33 Nocturnal hypoxemia G47.34 RBBB I45.10 Time Spent (min) 24
== END 2024-01-19 14:33 | disposition home or self-care (01) ==
PROVIDERS: PCP Family Medicine; Visit Provider Nurse Practitioner Family
DX: I10 Essential (primary) hypertension (principal); G47.33 Obstructive sleep apnea (adult) (pediatric); G47.34 Idiopathic sleep related nonobstructive alveolar hypoventilation; I45.10 Unspecified right bundle-branch block
CPT/HCPCS: 99213

== ENCOUNTER → 2024-01-19 14:02 | Outpatient (BNVA) | payer OTHER, SELFPAY | PROVIDERS: PCP Family Medicine; Visit Provider Nurse Practitioner Family | DX: I10 Essential (primary) hypertension (principal); I45.10 Unspecified right bundle-branch block; G47.33 Obstructive sleep apnea (adult) (pediatric); G47.34 Idiopathic sleep related nonobstructive alveolar hypoventilation | CPT/HCPCS: 99212 ==

== ENCOUNTER 2024-01-25 13:57 | Outpatient (AMB) | payer OTHER, SELFPAY ==
--- NOTE | 2024-01-25 14:01 | MHC.OFFVIS ---
Vital Signs 01/25/24 14:02 Height 58 ft Weight 288 lb BMI 0.4 BP 120/70 Blood Pressure Location Lt brachial Position Sitting Pulse 63 Pulse Source Pulse Oximeter Pulse Oximetry (%) 98 Oxygen Delivery Method Room Air Intake Visit Reasons: nocturnal hypoxemia Intake Note: pt is here for follow up and states he is using oxygen every night, doing well. Hand Presser Required: No Allergies No Known Allergies Allergy (Verified 01/25/24 14:23) Medication List - Last Reconciled 01/25/24 by Veronica Flowers MD losartan 50 mg PO DAILY metoprolol succinate ER 50 mg PO QAM 30 days omeprazole 20 mg PO DAILY Do you need a note to return to daycare/school/sports/work: No HPI HPI nocturnal hypoxemia: Details: 43 years old gentleman comes after 6 months for follow-up He is a case of obstructive sleep apnea and uses CPAP regularly. He missed a few nights during the past month. Because he had gone for camping He say is he sleeps. Good with the CPAP on Weight no change actually he has put on a few lb in the last 6 months. He has no issue with the CPAP device are mask. PFSH Medical History Dyspnea on exertion Morbid obesity RBBB Family History Mother No problems noted. Father No problems noted. Maternal Aunt Heart problem Social History Alcohol intake: never Patient Tobacco Use Status: Never used Tobacco Current occupational status: employed Current occupation: right hand dominant Review of Systems Const All systems reviewed & are unremarkable except as noted in HPI and below Eyes Reports no additional complaints ENT Reports no additional complaints Card Denies chest pain, Denies leg edema and Denies dyspnea on exertion Resp Reports as per HPI and Denies dyspnea on exertion GI Reports heartburn (Intermittent controlled with omeprazole) Reports no additional complaints Musc Reports no additional complaints Skin/Breast Reports system reviewed and no additional complaints, except as documented Neuro Reports no additional complaints Psych Reports no additional complaints Endo Reports no additional complaints Physical Exam Vital Signs: Last Vital Signs Pulse 63 01/25/24 14:02 BP 120/70 01/25/24 14:02 Pulse Ox 98 01/25/24 14:02 Oxygen Delivery Method Room Air 01/25/24 14:02 BMI result Body Mass Index 0.4 Patient is still morbidly obese, with a round face and crowded oropharynx. Const General: healthy appearing (Except for being overweight), comfortable, no acute distress, alert and awake Orientation/consciousness: patient oriented x3 HEENT Head: Yes normal to inspection General nose exam: No nasal polyps present and No nasal discharge present Face and sinus: Yes sinuses nontender Mouth: oropharynx normal Throat: Yes posterior oropharynx normal Eyes General: appearance normal, both eyes and all related structures Neck Neck: Yes normal visual inspection, Yes no lymphadenopathy, Yes trachea midline and Yes no JVD Thyroid: Thyroid normal Chest Chest palpation & inspection: normal inspection of the chest, normal palpation of entire chest wall and no tenderness Resp Effort & Inspection: normal respiratory effort Auscultation: clear to auscultation bilaterally, no crackles and no wheezes Cardio Palpation: normal PMI Rate: regular rate Rhythm: regular rhythm Heart sounds: no gallops and no murmurs Peripheral pulses: Peripheral pulses 2+ throughout GI Palpation (GI): Soft to palpation, nontender, No hepatosplenomegaly present and no masses Auscultation: normal bowel sounds Back/Spine/Pelvis Thoracic/Lumbar Spine: thoracic and lumbar spine normal to inspection Skin General skin exam: no rashes or lesions noted Neuro General: patient oriented x3 and no focal motor deficits Cranial nerves: Yes CN's II-XII intact bilaterally Extrem General: Yes normal to inspection, Yes no clubbing, cyanosis or edema and Yes no calf tenderness Psych Appearance: grossly normal and well kempt Speech and movement: Normal speech and movement present Results Reviewed Results Reviewed: Compliance report is as follows. Used /30 nights, 87%. Average use it per night 6 hours 4 minutes Pressure used is 11-12 cm , no significant air leak Residual AHI 0.5 Assessment & Plan Assessment & Plan (1) Morbid obesity: Comment: PATIENT REMAINS MORBIDLY OBESE, Code(s): E66.01 - Morbid (severe) obesity due to excess calories Category: Medical Plan: Talked to him about diet and also encouraged to walk a few miles every day (2) CELE (obstructive sleep apnea): Comment: KNOWN CASE OF SEVERE OBSTRUCTIVE SLEEP APNEA. AHI =48/hr and oxygen ella was 59%. PATIENT HAS BEEN USING THE CPAP, REGULARLY AND THE COMPLIANCE IS GOOD. RESIDUAL AHI=0.5 Code(s): G47.33 - Obstructive sleep apnea (adult) (pediatric) Category: Medical Plan: Commended for good compliance and advised that he should keep on using CPAP every night Coding Level of Care Code Est Pt Level 3 (98622) Diagnoses Morbid obesity E66.01 CELE (obstructive sleep apnea) G47.33
[2024-01-25 14:02] VITALS: BP 120/70; PULSE 63; O2SAT 98
== END 2024-01-25 14:23 | disposition home or self-care (01) ==
PROVIDERS: PCP Student in an Organized Health Care Education/Training Program; Visit Provider Internal Medicine
DX: E66.01 Morbid (severe) obesity due to excess calories (principal); G47.33 Obstructive sleep apnea (adult) (pediatric)
CPT/HCPCS: 99213

== ENCOUNTER → 2024-01-25 13:57 | Outpatient (BNVA) | payer OTHER, SELFPAY | PROVIDERS: PCP Student in an Organized Health Care Education/Training Program; Visit Provider Internal Medicine | DX: G47.33 Obstructive sleep apnea (adult) (pediatric) (principal); E66.01 Morbid (severe) obesity due to excess calories | CPT/HCPCS: 99212 ==

== ENCOUNTER 2024-07-08 11:22 | Outpatient (REF) | payer OTHER, SELFPAY ==
[2024-07-08 11:32] LABS: MANUAL DIFF FLAG NO
[2024-07-08 12:24] LABS: Basophils Absolute Auto 0.1 X10*3/uL (0.0-0.2); Eosinophils Absolute Auto 0.2 X10*3/uL (0.0-0.4); Eosinophils Percent Auto 2.6 % (0-4); Hemoglobin 12.5 g/dl (14.0-18.0); Imm Gran Abs Auto 0.02 X10*3/uL (0.00-0.03); Imm Gran Pct Auto 0.3 % (0.0-0.4); Lymphocytes Absolute Auto 1.5 X10*3/uL (1.2-4.9); Lymphocytes Percent Auto 20.7 % (20-40); Mean Corpuscular HGB Conc 30.5 g/dl (31.0-36.0); Mean Corpuscular Volume 88.6 fL (80.0-98.0); Monocytes Absolute Auto 0.7 X10*3/uL (0.1-1.2); Monocytes Percent Auto 9.9 % (2-11); Neutrophils Absolute Auto 4.7 x10*3/uL (2.0-8.3); Neutrophils Percent Auto 65.5 % (45-73); Platelet Count 235 X10*3/uL (160-400); Red Blood Count 4.63 X10*6/uL (4.60-5.80); Red Cell Distribution Width 14.3 % (11.0-16.0); White Blood Count 7.2 X10*3/uL (4.8-10.8)
[2024-07-08 13:35] LABS: Anion Gap 11 (12-20); Blood Urea Nitrogen 16 mg/dL (9-16); Carbon Dioxide 25 mmol/L (22-29); Chloride 110 mmol/L (96-108); Estimated Glomerular Filt Rate > 60; Iron 33 mcg/dL (45-160); Percent Iron Saturation 10 % (15-50); Potassium 4.1 mmol/L (3.3-5.1); Sodium 142 mmol/L (135-145); Total Iron Binding Capacity 319 mcg/dL (228-428); Unsaturated Iron Binding 286 ug/dL
== END 2024-07-08 11:23 | disposition home or self-care (01) ==
LOC: HO.LAB 11:22
PROVIDERS: PCP Family Medicine; Visit Provider Family Medicine
DX: I10 Essential (primary) hypertension (principal); D50.9 Iron deficiency anemia, unspecified
CPT/HCPCS: 36415; 80051; 82565; 83540; 84520; 85025

== ENCOUNTER 2024-07-28 13:53 | Outpatient (AMB) | payer OTHER, SELFPAY ==
[2024-07-28 14:17] VITALS: BP 140/78; PULSE 78; O2SAT 96; BMI 45.1
--- NOTE | 2024-07-28 14:17 | A.OFFVIS_ITS ---
Vital Signs 07/28/24 14:17 Height 5 ft 8 in Weight 296 lb 8.348 oz BMI 45.1 BP 140/78 H Blood Pressure Location Lt brachial Position Sitting Pulse 78 Pulse Source Pulse Oximeter Pulse Oximetry (%) 96 Oxygen Delivery Method Room Air Intake Visit Reasons: Nocturnal Hypoxemia Intake Note: pt is here for CELE and feeling good Time Study Engineer Required: No Allergies No Known Allergies Allergy (Verified 07/28/24 14:40) Medication List - Last Reconciled 07/28/24 by Veronica Flowers MD losartan 50 mg PO DAILY metoprolol succinate ER 50 mg PO QAM 30 days omeprazole 20 mg PO DAILY Do you need a note to return to daycare/school/sports/work: No HPI HPI Nocturnal Hypoxemia: Details: 44 years old very pleasant gentleman a case of morbid obesity and obstructive sleep apnea comes for follow-up after. More than 6 months He uses CPAP very regularly every night at least up to 6 hours per night. He claims that he sleeps good and he loves his CPAP device. He does have mild intermittent nasal congestion and ends up using Afrin nasal spray but only occasionally. He has no issue with the CPAP mask or CPAP machine. The main problem is that he does not watch his diet and does not do any regular exercise. So he has put on some weight. [facility] Medical History Dyspnea on exertion Morbid obesity RBBB Family History Mother No problems noted. Father No problems noted. Maternal Aunt Heart problem Social History Alcohol intake: never Patient Tobacco Use Status: Never used Tobacco Current occupational status: employed Current occupation: right hand dominant Review of Systems Const All systems reviewed & are unremarkable except as noted in HPI and below Eyes Reports no additional complaints ENT Reports no additional complaints Card Denies chest pain, Denies leg edema and Denies dyspnea on exertion Resp Reports as per HPI and Denies dyspnea on exertion GI Reports heartburn (Intermittent controlled with omeprazole) Reports no additional complaints Musc Reports no additional complaints Skin/Breast Reports system reviewed and no additional complaints, except as documented Neuro Reports no additional complaints Psych Reports no additional complaints Endo Reports no additional complaints Physical Exam Vital Signs: Last Vital Signs Pulse 78 07/28/24 14:17 BP 140/78 H 07/28/24 14:17 Pulse Ox 96 07/28/24 14:17 Oxygen Delivery Method Room Air 07/28/24 14:17 BMI result Body Mass Index 45.1 Patient is still morbidly obese, with a round face and crowded oropharynx. Const General: healthy appearing (Except for being overweight), comfortable, no acute distress, alert and awake Orientation/consciousness: patient oriented x3 HEENT Head: Yes normal to inspection General nose exam: No nasal polyps present and No nasal discharge present Face and sinus: Yes sinuses nontender Mouth: oropharynx normal Throat: Yes posterior oropharynx normal Eyes General: appearance normal, both eyes and all related structures Neck Neck: Yes normal visual inspection, Yes no lymphadenopathy, Yes trachea midline and Yes no JVD Thyroid: Thyroid normal Chest Chest palpation & inspection: normal inspection of the chest, normal palpation of entire chest wall and no tenderness Resp Effort & Inspection: normal respiratory effort Auscultation: clear to auscultation bilaterally, no crackles and no wheezes Cardio Palpation: normal PMI Rate: regular rate Rhythm: regular rhythm Heart sounds: no gallops and no murmurs Peripheral pulses: Peripheral pulses 2+ throughout GI Palpation (GI): Soft to palpation, nontender, No hepatosplenomegaly present and no masses Auscultation: normal bowel sounds Back/Spine/Pelvis Thoracic/Lumbar Spine: thoracic and lumbar spine normal to inspection Skin General skin exam: no rashes or lesions noted Neuro General: patient oriented x3 and no focal motor deficits Cranial nerves: Yes CN's II-XII intact bilaterally Extrem General: Yes normal to inspection, Yes no clubbing, cyanosis or edema and Yes no calf tenderness Psych Appearance: grossly normal and well kempt Speech and movement: Normal speech and movement present Results Reviewed Results Reviewed: Compliance report for the last 30 nights is reviewed,. He has used 29/30 nights,. 97% Average usage per night is 5 hours 48 minutes. No special air leak. Residual AHI 0.1 Assessment & Plan Assessment & Plan (1) Morbid obesity: Comment: PATIENT REMAINS MORBIDLY OBESE, has put on 8 more lb. Code(s): E66.01 - Morbid (severe) obesity due to excess calories Category: Medical Plan: We had a good discussion about weight reduction. Advised him to reduce the intake of carbohydrates. Advise that he should do some active exercise or at least walk 2 miles every day. (2) CELE (obstructive sleep apnea): Comment: KNOWN CASE OF SEVERE OBSTRUCTIVE SLEEP APNEA. AHI =48/hr and oxygen ella was 59%. PATIENT HAS BEEN USING THE CPAP, REGULARLY AND THE COMPLIANCE IS GOOD. RESIDUAL AHI=0.1 Code(s): G47.33 - Obstructive sleep apnea (adult) (pediatric) Category: Medical Plan: Commended for good compliance,. Advised that he has to use CPAP every night, Advise that. He has to start losing weight (3) Dyspnea on exertion: Comment: HE DOES HAVE MILD DYSPNEA ON EXERTION WHICH I THINK IS DUE TO HIS OBESITY. PULMONARY FUNCTION. TEST HAS NOT BEEN PERFORMED SPIROMETRY IN THE OFFICE HAS SHOWN MILD RESTRICTIVE PATTERN WHICH IS DEFINITELY RELATED TO HIS OBESITY. THERE IS NO OBSTRUCTIVE AIRWAY DISORDER. PATIENT IS EXPLAINED ABOUT THIS. ADVISED TO LOSE WEIGHT. ALSO ADVISED TO DO DEEP BREATHING EXERCISES 2 OR 3 TIMES A DAY. Code(s): R06.09 - Other forms of dyspnea Category: Medical Plan: NOTED ABOVE PATIENT INSTRUCTED TO LOSE WEIGHT AND KEEP ON DOING DEEP BREATHING EXERCISES. Coding Level of Care Code Est Pt Level 3 (13475) Diagnoses Morbid obesity E66.01 CELE (obstructive sleep apnea) G47.33 Dyspnea on exertion R06.09
== END 2024-07-28 14:46 | disposition home or self-care (01) ==
PROVIDERS: PCP Student in an Organized Health Care Education/Training Program; Visit Provider Internal Medicine
DX: E66.01 Morbid (severe) obesity due to excess calories (principal); G47.33 Obstructive sleep apnea (adult) (pediatric); R06.09 Other forms of dyspnea
CPT/HCPCS: 99213

== ENCOUNTER → 2024-07-28 13:53 | Outpatient (BNVA) | payer OTHER, SELFPAY | PROVIDERS: PCP Student in an Organized Health Care Education/Training Program; Visit Provider Internal Medicine | DX: G47.33 Obstructive sleep apnea (adult) (pediatric) (principal); R06.09 Other forms of dyspnea; E66.01 Morbid (severe) obesity due to excess calories; Z68.42 Body mass index [BMI] 45.0-49.9, adult | CPT/HCPCS: 99212 ==

== ENCOUNTER 2024-08-03 09:26 | Outpatient (AMB) | payer OTHER, SELFPAY ==
--- NOTE | 2024-08-03 09:28 | MHC.OFFVIS ---
Vital Signs 08/03/24 09:31 Height 5 ft 8 in Weight 302 lb BMI 45.9 BP 130/90 H Blood Pressure Location Lt brachial Position Sitting Pulse 74 Pulse Source Pulse Oximeter Pulse Oximetry (%) 95 Oxygen Delivery Method Room Air Intake Visit Reasons: f/u for sleep Jumpbasting Collar Baster Required: No Accompanied by: Self / Same As Patient Allergies No Known Allergies Allergy (Verified 08/03/24 09:33) HPI Comments Details: 44 y/o male patient presents for follow up of sleep study. Pt started APAP [id number]. The compliance and therapy response (04/28/24-07/26/24) reviewed with the patient. The usage days 82% and the average usage hours 6 hours and 4min. The pressures were from [id number] and the AHI was 0.4/hr. Pt states that he does not snore with CPAP, sleeps well for the entire night. He wakes up refreshed, and has more daytime energy. He works for [employer] in [place] and is doing well. His mood, memory are stable. He is trying to lose weight, and would like to go to weight management to learn how to improve eating habits. He washes his mask, changes filters and tubing as needed. [facility] Medical History Dyspnea on exertion Morbid obesity RBBB Family History Mother No problems noted. Father No problems noted. Maternal Aunt Heart problem Social History Alcohol intake: never Patient Tobacco Use Status: Never used Tobacco Current occupational status: employed Current occupation: right hand dominant Review of Systems Const All systems reviewed & are unremarkable except as noted in HPI and below Physical Exam Vital Signs: Last Vital Signs Pulse 74 08/03/24 09:31 BP 130/90 H 08/03/24 09:31 Pulse Ox 95 08/03/24 09:31 Oxygen Delivery Method Room Air 08/03/24 09:31 BMI result Body Mass Index 45.9 Const General: cooperative, comfortable and no acute distress Nutritional Appearance: obese (BMI is 45.9) morbidly obese Orientation/consciousness: patient oriented x3 HEENT Face and sinus: Yes normal facial exam and Yes face symmetric Throat: Yes other ([place] score of 4) Eyes Pupils: Equal, round and reactive pupils present Neck Neck: Yes full ROM and Yes supple Resp Effort & Inspection: normal respiratory effort and able to speak in complete sentences tactile fremitus present: no other Neuro General: patient oriented x3 and moves all extremities Cranial nerves: Yes CN's II-XII intact bilaterally, Yes Facial sensation intact/muscles of mastication intact, Yes Equal, round and reactive pupils present, Yes Normal accommodation reflex present, Yes Bilaterally intact EOM present, Yes Nystagmus not present, Yes Normal facial strength present, Yes Midline tongue present, Yes Ability to bilaterally rotate head present and Yes Ability to bilaterally elevate shoulders present Gait exam (Neuro): Normal gait present Motor exam (neuro): 5/5 motor strength present throughout and Normal motor muscle tone present throughout Deep tendon reflexes (DTR's): Right triceps reflex intensity grade: 2+, Left triceps reflex intensity grade: 2+, Rt Biceps (C5, C6): 2+, Left biceps reflex intensity grade: 2+, Right brachioradialis reflex intensity grade: 2+, Left brachioradialis reflex intensity grade: 2+, Right patellar reflex intensity grade: 2+ and Left patellar reflex intensity grade: 2+ Results Reviewed Results Reviewed: CELE Compliance Report 04/2024 - 07/2024 > 4 hours 74 days 82% Avg total 6 hours 4min Press 10-14 [id number] Leaks 0.6-21.6 AHI 0.4 Assessment & Plan Assessment & Plan (1) Essential hypertension: Code(s): I10 - Essential (primary) hypertension Category: Medical (2) Morbid obesity: Comment: PATIENT REMAINS MORBIDLY OBESE, has put on 8 more lb. Code(s): E66.01 - Morbid (severe) obesity due to excess calories Category: Medical Plan Continue using CPAP as patient experiences refreshed sleep. BMI is elevated, Weight Management referral, patient education provided on Dash diet and Mediterranean Diet and monitoring caloric intake. F/U in 6 months. Orders: Referrals Medical Weight Management Referral E66.01 - Morbid (severe) obesity due to excess calories Patient Instructions: BP is elevated, patient education provided on Dash diet and Mediterranean Diet and monitoring caloric intake. The #1 modifiable RF to prevent CV risks is good BP control. Weight management planning with nutrition counseling, diet and exercise can help to reduce weight. Coding Level of Care Code Est Pt Level 4 (81806) Diagnoses Essential hypertension I10 Morbid obesity E66.01 Time Spent (min) 30
[2024-08-03 09:31] VITALS: BP 130/90; PULSE 74; O2SAT 95; BMI 45.9
== END 2024-08-03 09:55 | disposition home or self-care (01) ==
PROVIDERS: PCP Family Medicine; Visit Provider Physician Assistant Medical
DX: I10 Essential (primary) hypertension (principal); E66.01 Morbid (severe) obesity due to excess calories
CPT/HCPCS: 99214

== ENCOUNTER → 2024-08-03 09:26 | Outpatient (BNVA) | payer OTHER, SELFPAY | PROVIDERS: PCP Family Medicine; Visit Provider Physician Assistant Medical | DX: E66.01 Morbid (severe) obesity due to excess calories (principal); I10 Essential (primary) hypertension; Z68.42 Body mass index [BMI] 45.0-49.9, adult | CPT/HCPCS: 99212 ==

== ENCOUNTER 2024-08-30 08:02 | Outpatient (AMB) | payer OTHER, SELFPAY ==
--- NOTE | 2024-08-30 09:27 | MHC.OFFVISWM ---
VS Expanded 08/30/24 09:36 BP 145/88 H Height 5 ft 8 in Weight 287 lb BMI 43.6 Body Fat % 40.4 Body Fat Mass 116 Fat Free Mass 170.8 Visceral Fat Rating 24 Body Water % 42.8 Body Water Mass 116 Basal Metabolic Rate/Score 2,397 Intake Visit Reasons: TV [employer] SWL vs MWL BMI 43.6 Allergies No Known Allergies Allergy (Verified 08/30/24 09:27) Medication List - Last Reconciled 08/30/24 by Rodolfo Castillo MD ferrous gluconate 270 mg PO DAILY losartan 50 mg PO DAILY metoprolol succinate ER 50 mg PO QAM 30 days omeprazole 20 mg PO DAILY HPI HPI TV [employer] SWL vs MWL BMI 43.6: Details: Start time: 9.16am, End time: 9.46am ?I spent 25 minutes speaking with the patient on the phone plus an additional 5 minutes reviewing and updating records for a total of 30 minutes HPI Comments Details: Previous weight loss efforts: self diets Wakes up: 7am, Sleeps: 12am Breakfast: skips Lunch: 12pm (sandwich, hot dog) Dinner: 7pm (rice, beans and chicken) Snacks: 9am (cake), 3-4pm (cookies, chips), 9pm (chips, cookies) Exercise: none Beverages: Coffee (1 cup/d with sugar), tea: none, soda: Regular Coke and Sprite, juice: (orange juice: 1/wk), ETOH: none PFSH Medical History (Updated 08/30/24 @ 09:30 by Rodolfo Castillo MD) GERD (gastroesophageal reflux disease) Morbid (severe) obesity due to excess calories Dyspnea on exertion Morbid obesity RBBB Surgical History (Updated 08/25/24 @ 11:39 by Altagracia Lawrence CMA) History of surgery on lower extremity Family History Mother No problems noted. Father No problems noted. Maternal Aunt Heart problem Social History Alcohol intake: never Patient Tobacco Use Status: Never used Tobacco Current occupational status: employed Current occupation: right hand dominant Telehealth Telehealth Telehealth Platform: Telephone Location of provider rendering services: practice address Location of patient: address on file Patient Identification confirmed using: Name, : Yes Telehealth method: voice only Patient verbally consented to treatment: Yes Patient verbally consented to billing insurance company: Yes Patient informed of any privacy concerns related to visit: Yes Minutes spent on Phone/Video with Pt.: 30 Assessment & Plan Assessment & Plan (1) Morbid obesity: Comment: PATIENT REMAINS MORBIDLY OBESE, has put on 8 more lb. Code(s): E66.01 - Morbid (severe) obesity due to excess calories Category: Medical Plan: 1. We discussed in detail the available therapeutic options: 1) our lifestyle intervention program that has an average weight loss of 10% in 3 months.? 2) Weight loss medications. 3) We also discussed about the lap sleeve gastrectomy. I emphasized the importance of close follow-up, adherence to instructions and good communication. The surgery does not replace the need to change your lifestlyle which is the cause of the obesity problem. The surgery provides the motivation to try again to change your lifestyle, it reduces the appetite and make the transition to a better lifestyle easier and doubles the amount of weight you would lose compared to doing the lifestyle change without the surgery. You will need to be on a liquid diet with protein shakes for 2 weeks before surgery to maximize weight loss and boost your nutritional status to recover better from surgery and also for the first two weeks after surgery to let the stomach heal before we introduce other foods. After the first 2 weeks we will introduce protein bars and soft foods like scrambled eggs, cottage cheese and yogurt and after the 6th week will introduce meat, fish and cooked vegetables in small amounts. Over time you should be able to eat everything in small amounts. Side effects like nausea, vomiting, heartburn or abdominal pain are not common in the practice unless you are not following in the practice. This operation requires lifetime commitment to following in our practice and communication with me. You will much less weight and experience side effects if you don?t communicate or not following in the practice. Complications are rare and in our practice is about 1/10 of the national average. The patient prefers to discuss these options with his family and will get back to me with his decision.
[2024-08-30 09:36] VITALS: BP 145/88; BMI 43.6
== END 2024-08-30 09:47 | disposition home or self-care (01) ==
LOC: HO.HBS 08:02
PROVIDERS: PCP Family Medicine; Visit Provider Surgery
DX: E66.813 Obesity, class 3 (principal); Z68.41 Body mass index [BMI] 40.0-44.9, adult
CPT/HCPCS: 99203

== ENCOUNTER → 2024-09-14 11:08 | Outpatient (REF) | payer OTHER, SELFPAY ==
--- NOTE | ~2024-09-14 | XR_ITS ---
EXAMINATION: XR CHEST 2 VIEWS HISTORY: E66.01 - Morbid (severe) obesity due to excess calories COMPARISON: Comparison is made with the prior examination dated 11/05/2023. FINDINGS: PA and lateral views of the chest are submitted. The lungs are expanded and clear. There is no pleural effusion, pneumothorax, or pulmonary vascular congestion. The heart is normal in size. There is mild degenerative disc disease of the spine. XR/XR chest 2V IMPRESSION: No acute cardiopulmonary abnormality. Electronically signed by: Torrey Koch MD 09/14/2024 03:31 PM EDT
--- NOTE | 2024-09-14 11:14 | ECG_ITS ---
Test Reason : obesity Blood Pressure : */* mmHG Vent. Rate : 61 BPM Atrial Rate : 61 BPM P-R Int : 174 ms QRS Dur : 86 ms QT Int : 422 ms P-R-T Axes : 67 31 35 degrees QTcB Int : 424 ms Normal sinus rhythm Normal ECG When compared with ECG of 05-Nov-2023 16:52, No significant change was found Referred By: Rodolfo Castillo Electronically Signed By: OTTO PARKER
[2024-09-14 11:38] LABS: MANUAL DIFF FLAG NO
[2024-09-14 11:46] LABS: Basophils Absolute Auto 0.1 X10*3/uL (0.0-0.2); Basophils Percent Auto 0.9 % (0-2); Eosinophils Absolute Auto 0.2 X10*3/uL (0.0-0.4); Eosinophils Percent Auto 2.4 % (0-4); Hematocrit 42.9 % (42.0-52.0); Hemoglobin 13.8 g/dl (14.0-18.0); Imm Gran Abs Auto 0.02 X10*3/uL (0.00-0.03); Imm Gran Pct Auto 0.3 % (0.0-0.4); Lymphocytes Absolute Auto 1.5 X10*3/uL (1.2-4.9); Lymphocytes Percent Auto 22.9 % (20-40); Mean Corpuscular HGB Conc 32.2 g/dl (31.0-36.0); Mean Corpuscular Hemoglobin 28.5 pg (27.0-33.0); Mean Corpuscular Volume 88.6 fL (80.0-98.0); Mean Platelet Volume 10.8 fL (9.4-12.4); Monocytes Absolute Auto 0.6 X10*3/uL (0.1-1.2); Monocytes Percent Auto 8.2 % (2-11); Neutrophils Absolute Auto 4.4 x10*3/uL (2.0-8.3); Neutrophils Percent Auto 65.3 % (45-73); Platelet Count 189 X10*3/uL (160-400); Red Blood Count 4.84 X10*6/uL (4.60-5.80); Red Cell Distribution Width 13.7 % (11.0-16.0); White Blood Count 6.7 X10*3/uL (4.8-10.8)
[2024-09-14 12:14] LABS: Estimated Average Glucose 108 mg/dL; Hemoglobin A1c % 5.4 % (<6.0); Total Hemoglobin (HGBA1C) 3603.1023 umol/L
[2024-09-14 12:20] LABS: Alanine Aminotransferase 35 U/L (0-40); Alkaline Phosphatase 47 U/L (39-117); Anion Gap 9 (12-20); Aspartate Amino Transferase 23 U/L (5-37); Bilirubin Total 0.6 mg/dL (0.0-1.0); Blood Urea Nitrogen 12 mg/dL (9-16); C Reactive Protein 0.13 mg/dL (< or = 0.50); Calcium 9.2 mg/dL (8.4-10.2); Carbon Dioxide 27 mmol/L (22-29); Chloride 109 mmol/L (96-108); Cholesterol 141 mg/dL (<200); Estimated Glomerular Filt Rate > 60; Glucose Random 93 mg/dL (60-115); HDL Cholesterol 32 mg/dL (>40); Iron 56 mcg/dL (45-160); LDL Cholesterol Calculated 98 mg/dL (<100); Percent Iron Saturation 20 % (15-50); Sodium 141 mmol/L (135-145); Total Iron Binding Capacity 285 mcg/dL (228-428); Triglycerides 55 mg/dL (<150); Unsaturated Iron Binding 229 ug/dL
[2024-09-14 12:48] LABS: Ferritin 32 ng/mL (20-250); TSH reflex Free T4 1.96 uIU/mL (0.32-4.0); Vitamin D 25-OH Total 16.2 ng/mL (>30)
[2024-09-14 12:50] LABS: Folate 12.9 ng/mL (> or = 4.0); Vitamin B12 601 pg/mL (200-900)
[2024-09-14 13:02] LABS: Insulin 8 uU/mL (2-29)
[2024-09-17 01:43] LABS: Zinc 81 mcg/dL (60-130)
== END ==
LOC: HO.CARD 11:08
PROVIDERS: PCP Family Medicine; Visit Provider Surgery
DX: E66.01 Morbid (severe) obesity due to excess calories (principal); I10 Essential (primary) hypertension; I45.10 Unspecified right bundle-branch block; K21.9 Gastro-esophageal reflux disease without esophagitis; G47.33 Obstructive sleep apnea (adult) (pediatric)
CPT/HCPCS: 36415; 71046; 80053; 80061; 82306; 82607; 82728; 82746; 83036; 83525; 83540; 84425; 84443; 84590; 84630; 85025; 86140; 93005

== ENCOUNTER → 2024-09-14 11:14 | Outpatient (BNV) | payer OTHER, SELFPAY | PROVIDERS: PCP Family Medicine; Visit Provider Internal Medicine | DX: E66.9 Obesity, unspecified (principal) | CPT/HCPCS: 93010 ==

== ENCOUNTER → 2024-09-14 11:39 | Outpatient (BNV) | payer OTHER, SELFPAY | PROVIDERS: PCP Family Medicine; Visit Provider Radiology Diagnostic Radiology | DX: E66.01 Morbid (severe) obesity due to excess calories (principal) | CPT/HCPCS: 71046 ==

== ENCOUNTER 2024-09-23 08:42 | Outpatient (REF) | payer OTHER, SELFPAY ==
--- NOTE | ~2024-09-23 | FL_ITS ---
EXAMINATION: XR UPPER GI SERIES WITH SMALL BOWEL CLINICAL INFORMATION: Moderate/severe obesity due to excess calories. COMPARISON: None. TECHNIQUE: Routine upper GI air contrast study was performed in upright and lying position. FINDINGS: Following oral administration of thick barium and effervescent granules there is normal propagation bolus from the oral cavity through the pharynx, esophagus into stomach. No biliary distention seen in the valleculae or piriform sinuses. No laryngeal penetration or aspiration seen. There is no extrinsic esophageal compression. There is a moderate size right lateral enthesophyte T9-T10 disc level. On placing patient in supine and prone lying the course, caliber and peristalsis in the stomach, duodenal bulb and this CT is normal. There is small sliding hiatal hernia with mild to moderate gastroesophageal reflux. The mucosal pattern of the esophagus, stomach and the duodenum is normal. There are increased gastric secretions noted. FLUOROSCOPY TIME: 1 minute 55 seconds DOSE AREA PRODUCT: 296 uGy-m2 (microgray-meter squared) FL/FL upper GI w air w Ba Swallow IMPRESSION: Moderate gastroesophageal reflux with a small sliding hiatal hernia. Increased gastric secretions suggestive of hyper acidity Electronically signed by: Guzman Salcedo MD 09/23/2024 01:47 PM EDT RP
== END 2024-09-23 08:43 | disposition home or self-care (01) ==
LOC: HO.XRAY 08:42
PROVIDERS: PCP Family Medicine; Visit Provider Surgery
DX: E66.01 Morbid (severe) obesity due to excess calories (principal); I10 Essential (primary) hypertension; I45.10 Unspecified right bundle-branch block
CPT/HCPCS: 74246

== ENCOUNTER → 2024-09-23 08:45 | Outpatient (BNV) | payer OTHER, SELFPAY | PROVIDERS: PCP Family Medicine; Visit Provider Radiology Diagnostic Radiology | DX: E66.01 Morbid (severe) obesity due to excess calories (principal) | CPT/HCPCS: 74246 ==

== ENCOUNTER 2024-10-11 08:57 | Outpatient (REF) | payer OTHER, SELFPAY ==
--- NOTE | ~2024-10-11 | US_ITS ---
EXAMINATION: US ABDOMEN COMPLETE WITH LIVER ELASTOGRAPHY HISTORY: E66.01 - Morbid (severe) obesity due to excess calories TECHNIQUE: Real-time grayscale ultrasound imaging of the abdomen was performed and images were reviewed. COMPARISON: There are no prior studies for comparison. FINDINGS: Liver: The right lobe of the liver measures 17.6 cm in size. The left lobe of the liver measures 9.1 cm in size. The liver demonstrates normal homogeneous echotexture. No focal mass or intrahepatic biliary ductal dilatation is identified. There is normal hepatopedal flow in the portal vein. Ultrasound elastography of the liver was performed with 10 separate measurements of the liver parenchyma with the patient in the supine position. Measurements were obtained approximately 2 cm below Eamon's capsule and perpendicular to the capsule. Images are of satisfactory quality. The median shear wave velocity is 1.20 m/s. The interquartile range/median (IQR/median) is 0.23. Gallbladder and biliary tree: The gallbladder is unremarkable, without evidence of calculi, wall thickening, or pericholecystic fluid. There is no sonographic Isabel sign. The common bile duct is normal in caliber measuring 3 mm. Kidneys: The right kidney measures 11.4 centimeters in length. The left kidney measures 11.6 cm in length. There is a 3 mm cyst at the lower pole of the right kidney. The kidneys are otherwise unremarkable, without evidence of solid masses, hydronephrosis, or calculi. Pancreas: The pancreatic head, neck, and body are unremarkable. The pancreatic tail is obscured by bowel gas. Spleen: The spleen is normal in size and contour, measuring 11.4 cm in length. Abdominal aorta and inferior vena cava: The visualized portions of the abdominal aorta and inferior vena cava are normal in caliber. There is no free fluid in the abdomen. US/US abdomen comp w elastography IMPRESSION: Hepatomegaly. The median shear wave velocity in the liver is 1.20 m/s, corresponding to a median liver stiffness of 4.56 kPa. The IQR/median value is 0.23. This is indicative of a poor quality data set, and the estimated liver stiffness may be unreliable. Findings are indicative of a normal elastography value with a low likelihood of severe fibrosis or cirrhosis. REFERENCE: Society of Radiologists in Ultrasound Liver Stiffness Thresholds (2020): LIVER STIFFNESS THRESHOLDS: *Shear wave velocity less than 1.3 m/s (Liver Stiffness equal or less than 5 kPa): High probability of being normal. *Shear wave velocity less than 1.7 m/s (Liver Stiffness less than 9 kPa): In the absence of other known clinical signs, rules out compensated advanced chronic liver disease. *Shear wave velocity between 1.7-2.1 m/s (Liver Stiffness 9-13 kPa): Suggestive of compensated advanced chronic liver disease but need further test for confirmation. *Shear wave velocity between 2.1-2.4 m/s (Liver Stiffness 13-17 kPa): Rules in compensated advanced chronic liver disease. *Shear wave velocity greater than 2.4 m/s (Liver Stiffness over 17 kPa): Suggestive of clinically significant portal hypertension. QUALITY OF DATA SET: *IQR/Median value equal or less that 0.15 implies a quality data set. *IQR/Median value over 0.15 implies a poor quality data set. SIGNIFICANT CHANGE FROM PRIOR EXAM: Significant change if liver stiffness measurement is 10% or greater from prior exam. OTHER CONSIDERATIONS: The stage of liver fibrosis may be overestimated in the setting of acute hepatitis, liver inflammation, elevated liver function tests, hepatic vascular congestion, obstructive cholestasis, non-fasting state, and infiltrative diseases such as amyloidosis and lymphoma. In some patients with NAFLD, the liver stiffness thresholds for compensated advanced chronic liver disease may be lower. In causes other than viral hepatitis and NAFLD, liver stiffness thresholds are not well established. Electronically signed by: Torrey Koch MD 10/12/2024 01:05 PM EDT
== END 2024-10-11 08:58 | disposition home or self-care (01) ==
LOC: HO.US 08:57
PROVIDERS: PCP Family Medicine; Visit Provider Surgery
DX: E66.01 Morbid (severe) obesity due to excess calories (principal); I10 Essential (primary) hypertension; I45.10 Unspecified right bundle-branch block; K21.9 Gastro-esophageal reflux disease without esophagitis; G47.33 Obstructive sleep apnea (adult) (pediatric)
CPT/HCPCS: 76700; 76981

== ENCOUNTER → 2024-10-11 08:59 | Outpatient (BNV) | payer OTHER, SELFPAY | PROVIDERS: PCP Family Medicine; Visit Provider Radiology Diagnostic Radiology | DX: R16.0 Hepatomegaly, not elsewhere classified (principal) | CPT/HCPCS: 76700; 76981 ==

== ENCOUNTER 2024-10-11 14:15 | Outpatient (AMB) | payer OTHER, SELFPAY ==
--- NOTE | 2024-10-11 14:00 | A.OFFWM_ITS ---
Intake Intake Visit Reasons: TV BH Intake Allergies No Known Allergies Allergy (Verified 08/30/24 09:27) [facility] Medical History (Updated 08/30/24 @ 09:30 by Rodolfo Castillo MD) GERD (gastroesophageal reflux disease) Morbid (severe) obesity due to excess calories Dyspnea on exertion Morbid obesity RBBB Surgical History (Updated 08/25/24 @ 11:39 by Altagracia Lawrence CMA) History of surgery on lower extremity Family History Mother No problems noted. Father No problems noted. Maternal Aunt Heart problem Social History Alcohol intake: never Patient Tobacco Use Status: Never used Tobacco Current occupational status: employed Current occupation: right hand dominant Behavioral Health Assessment Weight Management Therapy Therapy Notes Details Patient is a 44-year-old male who presents for a behavioral health visit to initiate a psychological assessment as part of the pre-surgical evaluation for the weight loss program. The patient denies any history of mental health treatment, psychiatric hospitalization, or behavioral health crises. He also denies any current or past concerns related to suicidal ideation (SI), suicide attempts (SA), self-harm, or harm to others. No history of substance use was reported. There is no indication of emotional or stress-related eating behaviors, and results from the Binge Eating Scale (BES) suggest a low risk for binge eating. PHQ-9 scores indicate no current symptoms of clinical depression. The mental status exam is within normal limits, with no evidence of cognitive or emotional impairment that would interfere with functioning. At this time, the patient is cleared from a behavioral health standpoint. Presenting Concerns Referral Source WMP-Provider. Pt had initial visit with Dr. Chen on 08/30/2024. Reason for referral Completion of behavioral health assessment as part of process for weight-loss surgery. Precipitating Event Obesity. The initial weight recorded was 287 lbs. Living Situation Current Living Situation Rent At risk of losing current housing? No Satisfied with current living situation? Yes Comments PT lives with his and 2 children. Food/Weight/Diet Expectations of change The patient is motivated to pursue bariatric surgery with the goal of achieving a healthier weight and improving overall health. PT is implementing the following: -Current meal plan: Patient is currently using shakes and consuming two meals per day. However, he is not following a structured meal plan provided by Dr. Chen or created through the [facility]. -Exercise: No regular exercise routine h as been initiated at this time. -Weight Monitoring: Patient has access t o a scale and is able to track his weight. -Communication with Provider: Patient painting s not yet established consistent communication with the Dr. Chen. History/Relationship with food Patient reports a tendency to consume large amounts of food at night, particularly high in carbohydrates and fried items. He shared that after quitting drinking, smoking, and partying several years ago, his physical activity significantly decreased, which contributed to gradual weight gain. While the patient acknowledges occasionally using food as a reward after a successful week or as comfort following a difficult one, he denies engaging in emotional or stress-related eating on a regular basis. The patient primarily eats at home, where meals are prepared in a traditional /[place] style?typically involving multiple carbohydrate sources and fried foods within the same meal. Examples of dietary habits prior to starting the weight management program: Breakfast: Large sandwich with ham, eggs, and cheese. Lunch: Rice, beans, and some type of meat (often fried). Dinner: Similar to lunch; typically traditional -style meals. Snacks: Chips and soda throughout the day; cake often consumed after dinner. Beverages: Approximately four cans of soda per day; one cup of black coffee with sugar in the morning; juice 1?2 times per week. History/Relationship with weight The patient reported being thin throughout childhood and began gaining weight after getting . He noted that his lowest weight within the past 10 years was 210 lbs. History/Relationship with dieting Patient has tried various diets (carnivore, low-carb, intermittent fasting, smaller portions), but typically reverts to old habits after a few months and regains the weight. In his 30s, he maintained around 200 lbs while working out with a personal care aide, but stopped after his grandmother . Binge Eating Do you frequently eat large amounts of food in short periods of time, not feeling physically hungry? No Do you feel out of control when you eat a large amount of food in a short period of time? No Do you eat large amounts of food rapidly and typically alone? No Night Eating Do you wake up at least once during the night to eat? No If you wake up in the night, do you find that it is necessary to eat something in order to fall back asleep? No Do you have little or no appetite in the morning and feel very hungry in the evening, often overeating between dinner and when you go to bed? Yes Social History Family history and relationship PT was 10 years ago but has been together for over 20 years, they have 2 children, they are 21 and 17. They all live together. Parents are since he was a kid; he has 2 brothers and 1 sister. They are very close. PT reports he's very family oriented. Parental/Familial associate justice obligations 17 year old child. Developmental history and status None reported. Currently WNL. Social support and children. Community support Adventism community. Mormon/Spirituality Hindu. Cultural/Ethnic information Born in [place], raised in [place]. Moved back to [place] in his 20s. Legal Involvement and History Current or historical involvement with the legal system? None reported. Education Highest grade completed HS. Preferred learning style Auditory and Visual Currently enrolled in educational program? No Interested in further educational program? No Educational Interests/Skills Likes to help others, and do community work. 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 ) Meaningful activities Family activities, watch movies, go to [employer]ec[employer]. Financial Situation Describe current financial situation Comfortable and Occasional struggle Financial assistance? None Service Service? No Mental Health and Addiction Treatment Current/Past substance abuse? No Comments Alcohol: haven't drink in about 8 years. Cigarettes/Tobacco:None Cannabis/Edibles: None. Current/Past addictive behavior concerns? No Psychiatric history PT denies ever been in crisis or inpatient for mental health. There is no history and/or current concern about SI/Sa and self-harm or other harm. Medical and Physical Health Summary Additional Medical History not covered in history None aditional. Sexual History concerns None reported. Physical exam in the last year? Yes Pain Screening Current pain? No Pain in the last few months? Yes Comments on legs. Medications Is the patient compliant with medications? Yes Does the patient have Davis Guardian in place? Not applicable Does the patient use complimentary health approaches? No Trauma/Abuse History History of trauma? No Questionnaires PHQ-9 Over the last 2 weeks, how often have you been bothered by any of the following problems? 1. Little interest or pleasure in doing things: not at all 2. Feeling down, depressed, or hopeless: not at all 3. Trouble falling or staying asleep, or sleeping too much: not at all 4. Feeling tired or having little energy: several days 5. Poor appetite or overeating: not at all 6. Feeling bad about yourself - or that you are a failure or have let yourself or your family down: not at all 7. Trouble concentrating on things, such as reading the newspaper or watching television: not at all 8. Moving or speaking so slowly that other people could have noticed. Or the opposite - being so fidgety or restless that you have been moving around a lot more than usual: not at all 9. Thoughts that you would be better off or of hurting yourself in some way: not at all Total score: 1 Depression Screening Interpretation: Negative (Initial PHQ-9 score from new PT pack was 2. ) Depression Screening Done: Yes 54639 - PHQ-9 Billing: Yes Source: Developed by Drs. Torrey Bahena, Etelvina Cook, Sheldon Delgado and colleagues, with an educational shoshana from [employer]. Binge Eating Scale Group 1 A. I don't feel self-conscious about my wt. or body size when I'm with others. B. I feel concerned about how I look to others, but it normally does not make me fell disappointed with myself C. I do get self-conscious about my appearance and wt. which makes me feel disappointed in myself. D. I feel very self-conscious about my wt. and frequently I feel intense shame and disgust for myself. I try to avoid social contacts because of my self- consciousness. Response Group 1: B Group 2 A. I don't have any difficulty eating slowly in the proper manner. B. Although I seem to gobble down foods, I don't end up feeling stuffed because of eating to much. C. At times, I tend to eat quickly and then, I feel uncomfortably full afterwards. D. I have the habit of bolting down my food, without really chewing it. When this happens I usually feel uncomfortably stuffed because I've eaten to much. Response Group 2: D Group 3 A. I feel capable to control my eating urges when I want to. B. I feel like I have failed to control my eating more than the average person. C. I feel utterly helpless when it comes to feeling in control of my eating urges. D. Because I feel so helpless about controlling my eating I have become very desperate about trying to get control. Response Group 3: A Group 4 A. I don't have the habit of eating when I'm bored. B. I sometimes eat when I'm bored, but often I'm able to get busy and get my mind off food. C. I have a regular habit of eating when I'm bored, but occasionally, I can use some other activity to get my mind off eating. D. I have a strong habit of eating when I'm bored. Nothing seems to help me breath the habit. Response Group 4: A Group 5 A. I'm usually physically hungry when I eat something. B. Occasionally, I eat something on impulse even though I really am not hungry. C. I have the regular habit of eating foods, that I might not really enjoy, to satisfy a hungry feeling even though physically, I don't need the food. D. Although I'm not physically hungry, I get a hungry feeling in my mouth that only seems to be satisfied when I eat a food, like sandwich, that fills my mouth. Sometimes, when I eat the food to satisfy my mouth hunger, I then spit the food out so I won't gain weight. Response Group 5: A Group 6 A. I don't feel any guilt or self-hate after I overeat. B. After I overeat, occasionally I feel guilt or self-hate. C. Almost all the time I experience strong guilt or self-hate after I overeat. Response Group 6: B Group 7 A. I don't lose total control of my eating when dieting even after periods when I overeat. B. Sometimes when I eat a forbidden food on a diet, I feel like I blew it and eat even more. C. Frequently, I have the habit of saying to myself, I've blown it now, why not go all the way, when I overeat on a diet. When that happens I eat more. D. I have a regular habit of starting a strict diets for myself but I break the diets by going on an eating binge. My life seems to be either a feast or famine. Response Group 7: A Group 8 A. I rarely eat so much food that I feel uncomfortably stuffed afterwards. B. Usually about once a month, I each such a quantity of food, I end up feeling very stuffed. C. I have regular periods during the month when I eat large amounts of food, either at mealtime or at snacks. D. I eat so much food that I regularly feel quite uncomfortable after eating and sometimes a bit nauseous. Response Group 8: A Group 9 A. My level of calorie intake does not go up very high or go down very low on a regular basis. B. Sometimes after I overeat, I will try to reduce my caloric intake to almost nothing to compensate for the excess calories I've eaten. C. I have a regular habit of overeating during the night. It seems that my routine is not to be hungry in the morning but overeat in the evening. D. In my adult years, I have had week-long periods where I practically starve myself. This follows periods when I overeat. It seems I live a life of either feast or famine. Response Group 9: A Group 10 A. I usually am able to stop eating when I want to. I know when enough is enough. B. Every so often, I experience a compulsion to eat which I can't seem to control. C. Frequently, I experience strong urges to eat which I seem unable to control, but at other times I can control my eating urges. D. I feel incapable of controlling urges to eat. I have a fear of not being able to stop eating voluntarily. Response Group 10: A Group 11 A. I don't have any problem stopping eating when I feel full. B. I usually can stop eating when I feel full but occasionally overeat leaving me feeling uncomfortably stuffed. C. I have a problem stopping eating once I start and usually I feel uncomfortably stuffed after I eat a meal. D. Because I have a problem not being able to stop eating when I want, I sometimes have to induce vomiting to relieve my stuffed feeling. Response Group 11: A Group 12 A. I seem to eat just as much when I'm with others, Family social gatherings as when I'm by myself. B. Sometimes, when I'm with other persons, I don't eat as much as I want to eat because I'm self-conscious about my eating. C. Frequently, I eat only a small amount of food when others are present, because I'm very embarrassed about my eating. D. I feel so ashamed about overeating that I pick times to overeat when I know no one will see me. I feel like a closet eater. Response Group 12: A Group 13 A. I eat three meals a day with only an occasional between meal snack. B. I eat 3 meals a day, but I also normally snack between meals. C. When I am snacking heavily, I get in the habit of skipping regular meals. D. There are regular periods when I seem to be continually eating, with no planned meals. Response Group 13: B Group 14 A. I don't think much about trying to control unwanted eating urges. B. At least some of the time, I feel my thoughts are pre-occupied with trying to control my eating urges. C. I feel that frequently I spend much time thinking about how much I ate or about trying not to eat anymore. D. It seems to me that most of my waking hours are pre-occupied by thoughts about eating or not eating. I feel like I'm constantly struggling not to eat. Response Group 14: C Group 15 A. I don't think about food a great deal. B. I have strong craving for food but they last only for brief periods of time. C. I have days when I can't seem to think about anything else but food. D. Most of my days seem to be pre-occupied with thoughts about food. I feel like I live to eat. Response Group 15: A Group 16 A. I usually know whether or not I'm physically hungry. I take the right portion of food to satisfy me. B. Occasionally, I feel uncertain about knowing whether or not I'm physically hungry. A these times it's hard to know how much food I should take to satisfy me. C. Even though I might know how many calories I should eat, I don't have any idea what is a normal amount of food for me. Response Group 16: A Binge Eating Score: 8 Score less than 17 Minimal Risk Score between 18-26 Moderate Risk Score between 27-46 High Risk Assessment & Plan Assessment & Plan (1) Adjustment disorder: Code(s): F43.20 - Adjustment disorder, unspecified (2) Inappropriate diet or eating habits: Code(s): Z72.4 - Inappropriate diet and eating habits (3) Pre-bariatric surgery psychological evaluation: Code(s): Z71.89 - Other specified counseling Plan Patient has been cleared from a behavioral health standpoint. However, this provider will follow up w/ PT in one month to assess the patient's consistency with the meal and exercise plan, as well as ongoing commitment to the program prior to surgery. In the interim, this provider will also connect with the team to clarify the patient's initial weight loss goal and ensure that the patient initiates communication with Dr. Vera Malagon ángel: at 1:30pm. Telehealth. Telehealth Telehealth Telehealth Platform: [facility] Location of provider rendering services: other Location of patient: address on file Patient Identification confirmed using: Name, : Yes Telehealth method: voice only Patient verbally consented to treatment: Yes Patient verbally consented to billing insurance company: Yes Patient informed of any privacy concerns related to visit: Yes Minutes spent on Phone/Video with Pt.: 60 Coding Level of Care Code New Pt Tele Psytx >53 mins (16184) Patient Type New Diagnoses Adjustment disorder F43.20 Inappropriate diet or eating habits Z72.4 Pre-bariatric surgery psychological evaluation Z71.89 Additional Codes PHQ-9 - 50072 - PHQ-9 Billing: Yes ([id number]) Time Spent (min) 60
== END 2024-10-11 15:24 | disposition home or self-care (01) ==
LOC: HO.HBST 14:15
PROVIDERS: PCP Family Medicine; Visit Provider Counselor Mental Health
DX: F43.20 Adjustment disorder, unspecified (principal); Z72.4 Inappropriate diet and eating habits; Z71.89 Other specified counseling
CPT/HCPCS: 90837

== ENCOUNTER 2024-10-17 08:50 | Day surgery (SDC) | payer OTHER, SELFPAY ==
[2024-10-17 09:18] VITALS: BP 148/95; PULSE 76; RESP 18; TEMP 36.7; O2SAT 97
[2024-10-17 09:27] VITALS: BMI 40.1
--- NOTE | 2024-10-17 09:32 | MHC.SHP ---
Pre-Procedural Eval Section A - 24 Hr Update-Section A only Date of Service: 10/17/24 The patient is an INPATIENT: No The patient has been examined within 24 hours of the surgical procedure. The History & Physical has been completed within 30 days and I have reviewed it.: Yes Section B - Complete if H&P > 30 days Chief Complaint: Morbid (severe) obesity due to excess calories Details of Present Illness: GERD Relevant Family History (Specify if Yes): No Relevant Social History: None Present Medications: None Medical History: No relevant PMH History of Previous Operations: No relevant previous surgery Allergies: Allergies Allergy/AdvReac Type Severity Reaction Status Date / Time No Known Allergies Allergy Verified 08/30/24 09:27 Review of Systems Sugical H&P ROS: Negative: Constitution, Cardiovascular, Respiratory, Neurological, Psychiatric, Hem-Onc, Allergic/Immunologic, Gastrointestinal, Genitourinary, Musculoskeletal, Integumentary, Endocrine and Eyes/Ears/Nose/Throat Exam Surgical H&P Exam: Normal: HEENT, Normal: Heart, Normal: Lungs, Normal: Extremities, Normal: Abdomen, Normal: Skin and Normal: Neurological Plan Diagnosis/Plan: Unchanged (EGD to assess etiology of GERD. Risks of bleeding and perforation were discussed with the patient and she is in agreement with the plan.) I have reviewed the history and physical and performed a pertinent physical examination on my patient. No changes have occurred unless specified. Time Spent With Patient Time: Total time managing care of this patient today ____ minutes.
[2024-10-17] MEDS: Lactated Ringers 1,000 ML 80 ML IVCONT (09:34)
--- NOTE | 2024-10-17 09:34 | P.CONAN_ITS ---
[facility] Active Problems Active Problems: All Active Problems Vitamin B1 deficiency (Acute) Vitamin D deficiency (Acute) GERD (gastroesophageal reflux disease) (Acute) Morbid (severe) obesity due to excess calories (Acute) Fracture of fifth metacarpal bone (Acute) Dyspnea on exertion (Acute) Nocturnal hypoxemia (Acute) CELE (obstructive sleep apnea) (Acute) Daytime sleepiness (Acute) Loud snoring (Acute) Essential hypertension (Acute) Morbid obesity (Acute) RBBB (Acute) COVID-19 (Acute) Past Medical History Medical History GERD (gastroesophageal reflux disease) Morbid (severe) obesity due to excess calories Dyspnea on exertion Morbid obesity RBBB Family History Family History Mother No problems noted. Father No problems noted. Maternal Aunt Heart problem Surgical History Surgical History History of surgery on lower extremity History of Problems with Anesthesia: No Social History Social History Alcohol intake: never Patient Tobacco Use Status: Never used Tobacco Are you DNR?: No Advance Directives: No Advance Directives Information Provided: Yes Current occupational status: employed Current occupation: right hand dominant Meds Allergies Allergy/AdvReac Type Severity Reaction Status Date / Time No Known Allergies Allergy Verified 08/30/24 09:27 Active Medications: Current Medications Lactated Ringer's (Lr) 1,000 mls @ 80 mls/hr IVCONT .[id number] BARBI Home Medications ?Medication ?Instructions ?Recorded ?Confirmed ?Last Taken ?Type omeprazole 20 mg capsule,delayed 20 mg PO DAILY 01/19/24 10/17/24 Unknown History release ferrous gluconate 270 mg (27 mg 270 mg PO DAILY 08/25/24 10/17/24 Unknown History iron) tablet Exam Height,Weight and Vital Signs: Height 5 ft 11 in Weight 130.5 kg Last Vital Signs Temp 98.0 F 10/17/24 09:18 Pulse 76 10/17/24 09:18 Resp 18 10/17/24 09:18 BP 148/95 H 10/17/24 09:18 Pulse Ox 97 10/17/24 09:18 O2 Del Method Room Air 10/17/24 09:18 Airway Mallampati Class: III TM Dist: >3cm Neck ROM: Full Loose/Missing/Broken Teeth: No Heart: RRR Lungs: CTA Assessment and Plan Assessment Anesthesia Assessment: Anesthesia Plan Discussed and Chart Reviewed Final Anesthetic Review History of Problems with Anesthesia: No NPO: Yes ASA Class: III Final Preanesthetic Review: Meds/Allgs Chart Reviewed, Consent Obtained/Reviewed and Anes Risks/Benef Reviewed Patient Risk: Intermediate Procedure Risk: Intermediate Anesthetic Plan Anesthetic Plan: MAC: Disposition: Standard PACU
--- NOTE | 2024-10-17 09:36 | P.BOP_ITS ---
Brief Operative Note Date of Service: 10/17/24 Pre-op diagnosis: GERD Post-op diagnosis: same (& moderate size fixed diaphragmatic hernia) Procedure: PROCEDURE DATE: 10/17/2024 PREOPERATIVE DIAGNOSIS: GERD POSTOPERATIVE DIAGNOSIS: ?Same as above. Moderate size fixed diaphragmatic hernia PROCEDURE: [id number] with biopsies Surgeon: ?Víctor Castillo M.D.. Ph.D. Nutritionist Public Health: None ? Anesthesia: IV sedation Estimated blood loss: ?Minimal FINDINGS AND PROCEDURE: ? OPERATIVE INDICATIONS: ?The patient is a 44 year old male known to me who is interested in bariatric surgery. The patient has GERD. Based on this information I recommended an upper endoscopy to evaluate the patient's symptoms. Risks and complications of the surgery were discussed with the patient in advance particularly the possibility of perforation or bleeding that may require surgical intervention. The patient understood the risks and was in agreement with the plan. ? PROCEDURE: After informed consent was obtained by the patient, the patient was ?transferred to the Operating Room and was placed in the supine position.? After successful induction of IV sedation, a mouth block was inserted and the patient was placed in the left lateral decubitus position. An upper endoscopy was performed next, the oropharynx and esophagus appeared within the normal limits. There was a moderate size 3-4cm fixed diaphragmatic he rnia. The z-line was smooth. Two biopsies were obtained from the distal esophagus 2-3 cm proximal to the GE junction and two additional biopsies from the GE junction. The stomach was entered and it appeared to be of normal size. There was no gastritis. There was no stricture or ulcer. A biopsy was obtained from the gastric fundus and the antrum. No significant bleeding was noted from any of the biopsy sites. Retroflexion of the scope confirmed the presence of a moderate size diaphragmatic hernia. The scope was then advanced into the duodenum which appeared to be normal as well. At that point the duodenum ?and the stomach were decompressed and the scope was withdrawn from the patient's mouth. The patient extubated and was transferred in stable condition to the Recovery Room for further care. I was present and performed all steps of the procedure. There were no residents to assist with this case. Víctor Castillo M.D., Ph.D. Surgeon: Rodolfo Castillo MD Anesthesia: MAC Was an Nutritionist Public Health used for this Procedure?: No Estimated blood loss (mL): 0 IV fluids (mL): 400 Urine output (mL): 0 (No Joyner to record output) Pathology: other (1) antrum x1, 2) fundus x1, 3) GE junction x2, 4) distal esophagus x2) Condition: stable Disposition: PACU
[2024-10-17 10:00] VITALS: BP 132/85; PULSE 74; RESP 18; TEMP 36.6; O2SAT 96
[2024-10-17 10:05] VITALS: BP 127/78; PULSE 69; RESP 18; O2SAT 95
[2024-10-17 10:10] VITALS: BP 131/81; PULSE 80; RESP 17; O2SAT 96
[2024-10-17 10:15] VITALS: BP 128/89; PULSE 78; RESP 17; TEMP 37.1; O2SAT 98
== END 2024-10-17 10:55 | disposition home or self-care (01) ==
PROVIDERS: PCP Family Medicine; Visit Provider Surgery
PROC: 0DJ08ZZ Inspection of Upper Intestinal Tract, Via Natural or Artificial Opening Endoscopic (ICD-10-PCS; CPT 43235; principal; 2024-10-17 10:50)
DX: K21.9 Gastro-esophageal reflux disease without esophagitis (principal); E66.01 Morbid (severe) obesity due to excess calories; Z68.41 Body mass index [BMI] 40.0-44.9, adult; K66.9 Disorder of peritoneum, unspecified; I45.10 Unspecified right bundle-branch block; R06.09 Other forms of dyspnea; Z79.899 Other long term (current) drug therapy
CPT/HCPCS: 43239; 88305; 88313; 88342; J2003; J2704

== ENCOUNTER → 2024-10-17 08:50 | Outpatient (BNV) | payer OTHER, SELFPAY | PROVIDERS: PCP Family Medicine; Visit Provider Surgery | DX: K44.0 Diaphragmatic hernia with obstruction, without gangrene (principal) | CPT/HCPCS: 43239 ==

== ENCOUNTER 2024-11-09 13:48 | Outpatient (AMB) | payer OTHER, SELFPAY ==
--- NOTE | 2024-11-09 13:40 | A.OFFWM_ITS ---
Intake Intake Visit Reasons: TV BH F/U Allergies No Known Allergies Allergy (Verified 08/30/24 09:27) PFS Medical History GERD (gastroesophageal reflux disease) Morbid (severe) obesity due to excess calories Dyspnea on exertion Morbid obesity RBBB Surgical History History of surgery on lower extremity Family History Mother No problems noted. Father No problems noted. Maternal Aunt Heart problem Social History Alcohol intake: never Patient Tobacco Use Status: Never used Tobacco Current occupational status: employed Current occupation: right hand dominant Behavioral Health Assessment Weight Management Therapy Therapy Notes Details Subjective: The patient reports ongoing weight loss and improvements in eating habits but has not yet incorporated regular exercise. He continues weekly communication with Dr. Chen but has not finished nutrition classes. Mood is within normal limits (WNL), and he denies any emotional concerns. Objective: The patient attended a follow-up pre-op behavioral health visit via Telehealth. Discussed current functioning, progress, and areas for continued growth. Provided psychoeducation on the role of physical activity in weight management. Utilized cognitive restructuring techniques to address unhelpful thoughts related to motivation, self-efficacy, and commitment, encouraging more goal- oriented thinking. Introduced behavioral activation strategies and habit tracking to support the development of consistent routines in meal planning, physical activity, and self-monitoring in preparation for bariatric surgery. Assessment/Response: * Mental status: WNL * Risk reported/identified: None Food/Weight/Diet0 Expectations of change The patient is motivated to pursue bariatric surgery to achieve a healthier weight and improve overall health. Pt started the program at 287Lbs Recent weight as of 11/05/2024: 279 lbs. PT is implementing the following: -Current meal plan: combination of shake s, protein bars, and 1 meal. -Exercise: none. But has a gym membershi p. -Scale: yes. -Communication with Provider: Yes. Satur days Assessment & Plan Assessment & Plan (1) Adjustment disorder: Code(s): F43.20 - Adjustment disorder, unspecified (2) Inappropriate diet or eating habits: Code(s): Z72.4 - Inappropriate diet and eating habits (3) Pre-bariatric surgery psychological evaluation: Code(s): Z71.89 - Other specified counseling Plan The patient remains cleared from a behavioral health standpoint. He will return for post-operative follow-up to monitor adjustment and provide ongoing support. Next appointment: In 2?3 weeks post-op. Telehealth Telehealth Telehealth Platform: [facility] Location of provider rendering services: other Location of patient: address on file Patient Identification confirmed using: Name, : Yes Telehealth method: voice only Patient verbally consented to treatment: Yes Patient verbally consented to billing insurance company: Yes Patient informed of any privacy concerns related to visit: Yes Minutes spent on Phone/Video with Pt.: 45 Coding Level of Care Code Established Pt Tele Psytx 45 mins (68003) Patient Type Established Diagnoses Adjustment disorder F43.20 Inappropriate diet or eating habits Z72.4 Pre-bariatric surgery psychological evaluation Z71.89 Time Spent (min) 45
== END 2024-11-09 14:32 | disposition home or self-care (01) ==
LOC: HO.HBST 13:48
PROVIDERS: PCP Family Medicine; Visit Provider Counselor Mental Health
DX: F43.20 Adjustment disorder, unspecified (principal); Z72.4 Inappropriate diet and eating habits; Z71.89 Other specified counseling
CPT/HCPCS: 90834

== ENCOUNTER 2025-01-19 13:54 | Outpatient (AMB) | payer OTHER, SELFPAY ==
--- NOTE | 2025-01-19 14:20 | MHC.OFFVIS ---
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 Allergies No Known Allergies Allergy (Verified 01/19/25 14:26) Medication List - Last Reconciled 01/19/25 by Chrissy Tong, [employer]-C cholecalciferol (vitamin D3) 125 mcg PO DAILY ferrous gluconate 270 mg PO DAILY losartan 50 mg PO DAILY metoprolol succinate ER 50 mg PO QAM 30 days omeprazole 20 mg PO DAILY thiamine HCl (vitamin B1) 100 mg PO DAILY HPI HPI 1 yr f/up: Details: Dangelo is a 44-year-old male with past medical history of hypertension, morbid obesity, intermittent right bundle branch block, very severe obstructive sleep apnea now with CPAP use who presents for follow-up. His last prior visit was 01/19/2024. Today he reports he is feeling very good overall. He is using his CPAP each night and reports strict compliance. He is not having issues with daytime sleepiness. No chest discomfort at rest or with activity. No shortness of breath, no palpitations, dizziness, presyncope, syncope, PND, orthopnea or edema. He is taking his meds as directed. He walks frequently at work. [facility] Medical History GERD (gastroesophageal reflux disease) Morbid (severe) obesity due to excess calories Dyspnea on exertion Morbid obesity RBBB Surgical History History of surgery on lower extremity Family History Mother No problems noted. Father No problems noted. Maternal Aunt Heart problem Social History Alcohol intake: never Patient Tobacco Use Status: Never used Tobacco Current occupational status: employed Current occupation: right hand dominant Review of Systems Const All systems reviewed & are unremarkable except as noted in HPI and below ENT Denies dizziness Card Denies chest pain, Denies chest pain at rest, Denies chest pain with activity, Denies rapid heart rate, Denies pedal edema, Denies edema, Denies leg edema, Denies lightheadedness, Denies palpitations, Denies dyspnea, Denies dyspnea on exertion and Denies orthopnea Resp Denies cough, Denies dyspnea and Denies dyspnea on exertion GI Denies hematochezia and Denies change in stool character Musc Denies abnormal gait, Denies limited range of motion, Denies muscle cramps, Denies muscle weakness, Denies numbness, Denies radiating pain into limb, Denies stiffness and Denies tingling Neuro Denies abnormal gait, Denies dizziness, Denies numbness and Denies tingling Endo Denies palpitations Physical Exam Vital Signs: Last Vital Signs Pulse 64 01/19/25 14:21 BP 134/82 01/19/25 14:21 BMI result Body Mass Index 40.6 Const Other: morbidly obese General: cooperative, healthy appearing, comfortable and no acute distress Orientation/consciousness: patient oriented x3 Neck Neck: Yes normal visual inspection and Yes no JVD Resp Effort & Inspection: normal respiratory effort Auscultation: clear to auscultation bilaterally, no rales, no rhonchi and no wheezes Cardio Jugular venous distension: no JVD Rate: regular rate Rhythm: regular rhythm Heart sounds: S1 normal heart sound present, S2 normal heart sound present, no murmurs and no rubs Neuro General: patient oriented x3 Extrem General: Yes normal to inspection and No no pedal edema Psych Appearance: grossly normal Mental Status: mental status grossly normal Speech and movement: Normal speech and movement present Office Procedures EKG Details: Today, read by me, normal sinus rhythm, left axis deviation, RBBB, rate 64, Qtc 447ms [id number], Complete Assessment & Plan Assessment & Plan (1) RBBB: Code(s): I45.10 - Unspecified right bundle-branch block Category: Medical Plan: History of intermittent right bundle branch block as seen on prior EKGs. EKG from 09/14/2024 does not show this finding however EKG done today in the office is showing sinus rhythm with right bundle branch block, QRS 150 milliseconds, rate 64. This finding was reviewed with him. His echocardiogram shows no significant abnormalities. Will check exercise stress test to ensure no ischemia. Plan to call him with results. (2) Essential hypertension: Code(s): I10 - Essential (primary) hypertension Category: Medical Plan: Blood pressure goal less than 130/80. Adequately controlled at this time. Labs 09/14/2024 showed potassium 4.0, creatinine 0.92. Continue metoprolol and losartan. Low-salt diet reviewed. Continue physical activity as tolerated. Weight loss recommended. (3) CELE (obstructive sleep apnea): Comment: KNOWN CASE OF SEVERE OBSTRUCTIVE SLEEP APNEA. AHI =48/hr and oxygen ella was 59%. PATIENT HAS BEEN USING THE CPAP, REGULARLY AND THE COMPLIANCE IS GOOD. RESIDUAL AHI=0.1 Code(s): G47.33 - Obstructive sleep apnea (adult) (pediatric) Category: Medical Plan: Newer finding of very severe obstructive sleep apnea and hypoxia. He is now being followed by pulmonology and has CPAP mask in use. He reports feeling much better overall with less daytime fatigue and increased energy. The importance of ongoing strict compliance reviewed with him. (4) Nocturnal hypoxemia: Comment: WITH THE USE OF CPAP AT NIGHT. NOCTURNAL HYPOXEMIA IS COMPLETELY RESOLVED, INDICATED BY OVERNIGHT OXIMETRY RECORDING. Code(s): G47.34 - Idiopathic sleep related nonobstructive alveolar hypoventilation Category: Medical Plan: As above Plan Time spent on chart review, documentation, interview and assessment Orders: Orders CA stress test Today I10 - Essential (primary) hypertension, I45.10 - Unspecified right bundle-branch block Coding Level of Care Code Est Pt Level 4 (96351) Complex EM visit Add On G2211 Diagnoses RBBB I45.10 Essential hypertension I10 CELE (obstructive sleep apnea) G47.33 Nocturnal hypoxemia G47.34 CPT Codes EKG - CPT: 12466-[id number], Complete ([id number]) Time Spent (min) 30
[2025-01-19 14:21] VITALS: BP 134/82; PULSE 64; BMI 40.6
== END 2025-01-19 14:48 | disposition home or self-care (01) ==
LOC: HO.HCS 13:54
PROVIDERS: PCP Family Medicine; Visit Provider Nurse Practitioner Family
DX: I45.10 Unspecified right bundle-branch block (principal); I10 Essential (primary) hypertension; G47.33 Obstructive sleep apnea (adult) (pediatric); G47.34 Idiopathic sleep related nonobstructive alveolar hypoventilation
CPT/HCPCS: 93010; 99214

== ENCOUNTER → 2025-01-19 13:54 | Outpatient (BNVA) | payer OTHER, SELFPAY | PROVIDERS: PCP Family Medicine; Visit Provider Nurse Practitioner Family | DX: I10 Essential (primary) hypertension (principal); I45.10 Unspecified right bundle-branch block; G47.33 Obstructive sleep apnea (adult) (pediatric); Z99.89 Dependence on other enabling machines and devices; G47.34 Idiopathic sleep related nonobstructive alveolar hypoventilation | CPT/HCPCS: 93005; 99212 ==

== ENCOUNTER → 2025-02-23 07:45 | Outpatient (REF) | payer OTHER, SELFPAY ==
--- NOTE | 2025-02-23 07:47 | CA_ITS ---
Acquisition Time: 2025-02-23 07:52:39 Total Exercise Time: 00:07:52 Test Indications: RBBB, SOB Medications: SEE H&P Protocol: DEMETRIA Max HR: 155 BPM 87% of Pred: 178 BPM Max BP: 160/90 mmHG Max Work Load: 9.8 METS Exercise stress test with exercise 7 mins 52 secs of Demetria Protocol, achieving 87% MPHR, with reports of SOB, no chest pain, with isolated PACs and PVCs, with normotensive response to exercise. With intermittent RBBB with exercise, otherwise without any ST changes meeting criteria for ischemia. In recovery, breathing returned to baseline. Test reviewed with Dr. Nolan. Referred By: Chrissy Tong Electronically Signed By: Elton Smith
== END ==
LOC: HO.CARD 07:45
PROVIDERS: Visit Provider Nurse Practitioner Family
DX: I45.10 Unspecified right bundle-branch block (principal); I10 Essential (primary) hypertension
CPT/HCPCS: 93017

== ENCOUNTER → 2025-02-23 07:47 | Outpatient (BNV) | payer OTHER, SELFPAY | DX: I49.1 Atrial premature depolarization (principal); I49.3 Ventricular premature depolarization; R06.02 Shortness of breath | CPT/HCPCS: 93016; 93018 ==

== ENCOUNTER 2025-03-03 13:20 | Outpatient (AMB) | payer OTHER, SELFPAY ==
--- NOTE | 2025-03-03 13:21 | A.OFFVIS_ITS ---
Vital Signs 03/03/25 13:22 Height 5 ft 11 in Weight 288 lb 2 oz BMI 40.2 BP 130/84 Blood Pressure Location Rt brachial Position Sitting Pulse 69 Pulse Source Pulse Oximeter Pulse Oximetry (%) 95 Oxygen Delivery Method Room Air Intake Visit Reasons: 6 mnts f/u Intake Note: Patient presents follow up Sleep. WM seen 08/30.Compliance report in chart(83/90days, >=4hrs-87%, Average usage-6hrs, Med pressure- 9.3, Med leaks- 0.7, AHI-0.2) Surtass Analyst Required: No Accompanied by: Self / Same As Patient Allergies No Known Allergies Allergy (Verified 03/03/25 13:22) HPI Comments Details: 44 y/o male patient presents for follow up of Home sleep study. HST 10/2022 ALAN is 47.9 and Oxygen desaturation to 67% and <88% for 58 min, snoring is 16% of sleep, and nocturnal hypoxemia. CELE Compliance Report 11/2024 - 01/2025. Total use 90% and the avg usage 5 hours and 38min. Med press [id number] Leaks median [id number] AHI was 0.3/hr. He washes the mask rinses hoses, changes filters and fills reservoir with water. Labs reviewed with pt. he continues to be anemic will be referred for f/u r/o and evaluation of nocturnal hypoxemia. He was evaluated by pulmonology in 2022 and has restrictive airway disease, vs obstructive. He saw WM in 08/2024 and discontinued seeing them bc he did not want to undergo surgery. He wants to try and improve his diet with conservative measures such as lifestyle and diet, along with a GLP-1s. He weighs 288lbs today. Pt does not snore anymore with CPAP, sleeps well for the entire night, and feels as if sleep has improved. Some days has fatigue, though better and improved symptoms now, and he likes his new mask. He has also decreased energy drinks used to drink (4) per day. 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 His mood, memory are stable. He denies RLS symptoms. [facility] Medical History GERD (gastroesophageal reflux disease) Morbid (severe) obesity due to excess calories Dyspnea on exertion Morbid obesity RBBB Surgical History History of surgery on lower extremity Family History Mother No problems noted. Father No problems noted. Maternal Aunt Heart problem Social History Alcohol intake: never Patient Tobacco Use Status: Never used Tobacco Current occupational status: employed Current occupation: right hand dominant Physical Exam Vital Signs: Last Vital Signs Pulse 69 03/03/25 13:22 BP 130/84 03/03/25 13:22 Pulse Ox 95 03/03/25 13:22 Oxygen Delivery Method Room Air 03/03/25 13:22 BMI result Body Mass Index 40.2 Const General: cooperative, comfortable and no acute distress Nutritional Appearance: obese (BMI is 45.9) morbidly obese Orientation/consciousness: patient oriented x3 HEENT Face and sinus: Yes normal facial exam and Yes face symmetric Throat: Yes other ([place] score of 4) Eyes Pupils: Equal, round and reactive pupils present Neck Neck: Yes full ROM and Yes supple Resp Effort & Inspection: normal respiratory effort and able to speak in complete sentences tactile fremitus present: no other Neuro General: patient oriented x3 and moves all extremities Cranial nerves: Yes CN's II-XII intact bilaterally, Yes Facial sensation intact/muscles of mastication intact, Yes Equal, round and reactive pupils present, Yes Normal accommodation reflex present, Yes Bilaterally intact EOM present, Yes Nystagmus not present, Yes Normal facial strength present, Yes Midline tongue present, Yes Ability to bilaterally rotate head present and Yes Ability to bilaterally elevate shoulders present Gait exam (Neuro): Normal gait present Motor exam (neuro): 5/5 motor strength present throughout and Normal motor muscle tone present throughout Results Reviewed Results Reviewed: HST 10/2022 ALAN is 47.9 and Oxygen desaturation to 67% and <88% for 58 min, snoring is 16% of sleep, and nocturnal hypoxemia. CELE Compliance Report 01/2025 reviewed with the patient. Total use 90% and the avg usage 5 hours and 38min. Med press [id number] Leaks median [id number] AHI was 0.3/hr. He washes the mask rinses hoses, changes filters and fills reservoir with water. Labs reviewed with pt. he is slightly anemic will be referred for f/u r/o and evaluation of nocturnal hypoxemia. Assessment & Plan Assessment & Plan (1) CELE on CPAP: Code(s): G47.33 - Obstructive sleep apnea (adult) (pediatric) Category: Medical (2) Morbid obesity: Comment: PATIENT REMAINS MORBIDLY OBESE, has put on 8 more lb. Code(s): E66.01 - Morbid (severe) obesity due to excess calories Category: Medical (3) Nocturnal hypoxemia: Comment: WITH THE USE OF CPAP AT NIGHT. NOCTURNAL HYPOXEMIA IS COMPLETELY RESOLVED, INDICATED BY OVERNIGHT OXIMETRY RECORDING. Code(s): G47.34 - Idiopathic sleep related nonobstructive alveolar hypoventilation Category: Medical (4) Anemia: Code(s): D64.9 - Anemia, unspecified Category: Medical Qualifiers: Anemia type: iron deficiency Iron deficiency anemia type: unspecified iron deficiency Qualified Code(s): D50.9 - Iron deficiency anemia, unspecified Plan Continue using CPAP as patient experiences refreshed sleep. Nocturnal Hypoxemia? will send him for an overnight pulse oximetry once again as he is more anemica now. BMI is elevated, patient education provided on Dash diet and Mediterranean Diet and monitoring caloric intake. Labs reviewed with pt. Vit D is low, B1 is low, Ferritin is low, TIBC is low. Continue Iron Ferrous gluconate 270mg po qhs. Continue Thiamine 100mg po qhs.Continue Vit D 125mcg po qhs. F/U in 3 months. Orders: Orders Overnight Pulse Oximetry 03/03/25 R51.9 - Headache, unspecified Patient Instructions: Sleep Hygiene provided: set a scheduled bedtime and wake time to help regulate the circadian rhythm and balance the release of pituitary hormones. Sleep in a dark room, temperatures below 68 degrees, and no devices n bed. Limit caffeinated products 6 hours prior to bed, and limit fluids 2-4 hours prior to bed. Gentle night yoga, diffusing essential oils, and playing soft music can be relaxing. Coding Level of Care Code Est Pt Level 4 (73465) Diagnoses CELE on CPAP G47.33 Morbid obesity E66.01 Nocturnal hypoxemia G47.34 Iron deficiency anemia, unspecified iron deficiency anemia type D50.9 Anemia type: iron deficiency Iron deficiency anemia type: unspecified iron deficiency
[2025-03-03 13:22] VITALS: BP 130/84; PULSE 69; O2SAT 95; BMI 40.2
== END 2025-03-03 14:02 | disposition home or self-care (01) ==
LOC: HO.HSMS 13:20
PROVIDERS: PCP Family Medicine; Visit Provider Physician Assistant Medical
DX: G47.33 Obstructive sleep apnea (adult) (pediatric) (principal); E66.01 Morbid (severe) obesity due to excess calories; G47.34 Idiopathic sleep related nonobstructive alveolar hypoventilation; D50.9 Iron deficiency anemia, unspecified
CPT/HCPCS: 99214

== ENCOUNTER → 2025-03-03 13:20 | Outpatient (BNVA) | payer OTHER, SELFPAY | PROVIDERS: PCP Family Medicine; Visit Provider Physician Assistant Medical | DX: G47.33 Obstructive sleep apnea (adult) (pediatric) (principal); E66.01 Morbid (severe) obesity due to excess calories; Z99.89 Dependence on other enabling machines and devices; G47.34 Idiopathic sleep related nonobstructive alveolar hypoventilation; D50.9 Iron deficiency anemia, unspecified; R51.9 Headache, unspecified; E55.9 Vitamin D deficiency, unspecified; D64.9 Anemia, unspecified; E53.8 Deficiency of other specified B group vitamins | CPT/HCPCS: 99212 ==

== ENCOUNTER 2025-03-08 10:40 | Outpatient (REF) | payer OTHER, SELFPAY ==
[2025-03-08 12:45] LABS: MANUAL DIFF FLAG NO
[2025-03-08 12:57] LABS: Hematocrit 39.2 % (42.0-52.0); Hemoglobin 13.2 g/dl (14.0-18.0); Imm Gran Abs Auto 0.02 X10*3/uL (0.00-0.03); Imm Gran Pct Auto 0.3 % (0.0-0.4); Lymphocytes Absolute Auto 1.0 X10*3/uL (1.2-4.9); Mean Corpuscular HGB Conc 33.7 g/dl (31.0-36.0); Mean Corpuscular Hemoglobin 29.0 pg (27.0-33.0); Mean Corpuscular Volume 86.2 fL (80.0-98.0); NRBC Abs Auto 0.000 X10*3/uL (0.0-0.012); NRBC Pct Auto 0.0 /100WBC (0.0-0.2); Platelet Count 194 X10*3/uL (160-400); Red Blood Count 4.55 X10*6/uL (4.60-5.80); White Blood Count 6.8 X10*3/uL (4.8-10.8)
[2025-03-08 13:20] LABS: Alanine Aminotransferase 25 U/L (0-40); Albumin Level 4.4 g/dL (3.5-5.0); Alkaline Phosphatase 54 U/L (39-117); Anion Gap 9 (12-20); Aspartate Amino Transferase 22 U/L (5-37); Blood Urea Nitrogen 16 mg/dL (9-16); Calcium 9.2 mg/dL (8.4-10.2); Carbon Dioxide 26 mmol/L (22-29); Chloride 110 mmol/L (96-108); Cholesterol 137 mg/dL (<200); Estimated Glomerular Filt Rate > 60; HDL Cholesterol 30 mg/dL (>40); Iron 53 mcg/dL (45-160); Percent Iron Saturation 18 % (15-50); Potassium 3.9 mmol/L (3.3-5.1); Sodium 141 mmol/L (135-145); Total Iron Binding Capacity 288 mcg/dL (228-428); Total Protein 7.1 g/dL (6.5-8.0); Triglycerides 47 mg/dL (<150); Unsaturated Iron Binding 235 ug/dL
== END 2025-03-08 10:41 | disposition home or self-care (01) ==
LOC: HO.LAB 10:40
PROVIDERS: PCP Family Medicine; Visit Provider Physician Assistant
DX: I10 Essential (primary) hypertension (principal); K64.9 Unspecified hemorrhoids; D50.9 Iron deficiency anemia, unspecified; E66.01 Morbid (severe) obesity due to excess calories; K62.5 Hemorrhage of anus and rectum; G47.33 Obstructive sleep apnea (adult) (pediatric); Z79.899 Other long term (current) drug therapy; Z68.41 Body mass index [BMI] 40.0-44.9, adult
CPT/HCPCS: 36415; 80048; 80061; 80076; 83540; 85025; 99202

== ENCOUNTER 2025-03-08 10:40 | Outpatient (AMB) | payer OTHER, SELFPAY ==
--- NOTE | 2025-03-08 10:43 | MHC.PC.OV ---
Vital Signs 03/08/25 10:56 Height 5 ft 9 in Weight 129.727 kg BMI 42.2 BP 123/84 Blood Pressure Location Lt brachial Position Sitting Respiration 20 Pulse 65 Pulse Source Pulse Oximeter Temp 98.8 F Temp Source Temporal Artery Scan Pulse Oximetry (%) 95 Oxygen Delivery Method Room Air Intake Visit Reasons: 4 month follow up-brad pt Traffic Inspector Required: No Allergies No Known Allergies Allergy (Verified 03/08/25 10:44) Medication List - Last Reconciled 03/08/25 by Audra Cook LPN cholecalciferol (vitamin D3) 125 mcg PO DAILY ferrous gluconate 270 mg PO DAILY losartan 50 mg PO DAILY metoprolol succinate ER 50 mg PO QAM 30 days omeprazole 20 mg PO DAILY thiamine HCl (vitamin B1) 100 mg PO DAILY Tobacco use date assessed: 03/08/25 HPI HPI Comments History of Present Illness Details 44-year-old male with history of hypertension, GERD iron-deficiency anemia, CELE, morbid obesity presents to the office today for management of chronic conditions and to establish care. He is a former patient of Dr. Vieira, last seen 10/2024. Hypertension-on losartan 50 mg daily. Blood pressure in the office 123/84 GERD-omeprazole CELE-compliant with CPAP. Following with sleep medicine as well as pulmonology LARISSA-on ferrous sulfate Morbid obesity-BMI 42.2. Has been following with weight management but decided against surgery. He states that he was interested in initiating medication but did not hear back from the department. He has been following a healthy diet with emphasis on protein, fruits, vegetables and limiting carbohydrates. He does not eat later than 18:00. He currently is not going to the gym but has plans to join. He has lost about 8 lb since last visit several weeks ago Morbid obesity- bmi 42. He is eating better- not eating later than 6 Concerns: Hemorrhoids- reports rectal exam was performed by prior PCP. Reports occasional discomfort in the perianal area but no pruritus. He states that he will occasionally experience bleeding with bowel movements, occasionally supa blood but otherwise blood on the stool or toilet paper. He denies any constipation or diarrhea. Regular bowel movements daily. He does endorse straining occasionally. occ bleeding. Health maintenance: Given symptoms, referred to gastroenterology for consideration of colonoscopy versus management of hemorrhoids ROS: General: No fevers, malaise, unintentional weight loss HEENT: No blurred vision, diplopia. No sore throat, nasal congestion, rhinorrhea, sinus pain, ear pain Cardiovascular: No chest pain, palpitations, or leg edema Respiratory: No shortness of breath, wheezing, cough GI: See HPI : No dysuria, hematuria, increased urinary frequency, decreased urinary output MSK: No myalgia, back pain Neuro: No headaches, weakness, paresthesias Skin: No rashes or lesions EXAM: Constitutional - Awake and Alert, No apparent distress Eyes - PERRL Cardiovascular - S1S2, RRR, No edema Respiratory - Normal lung expansion, Normal respiratory effort, No respiratory distress, CTA bilaterally ABD-soft, nontender, bowel sounds x4, no guarding or rebound, nondistended Extremities - no calf tenderness bilaterally, no swelling Skin - Warm/Dry Neurological - Alert & oriented x3 Psychological - Appropriate affect [facility] Medical History GERD (gastroesophageal reflux disease) Morbid (severe) obesity due to excess calories Dyspnea on exertion Morbid obesity RBBB Surgical History History of surgery on lower extremity Family History Mother No problems noted. Father No problems noted. Maternal Aunt Heart problem Social History Alcohol intake: never Patient Tobacco Use Status: Never used Tobacco Current occupational status: employed Current occupation: right hand dominant Physical exam (Primary Care) Vital Signs: Last Vital Signs Temp 98.8 F 03/08/25 10:56 Pulse 65 03/08/25 10:56 Resp 20 03/08/25 10:56 BP 123/84 03/08/25 10:56 Pulse Ox 95 03/08/25 10:56 Oxygen Delivery Method Room Air 03/08/25 10:56 BMI result Body Mass Index 42.2 Tobacco/Smoking Status: Tobacco use Status Tobacco use date assessed 03/08/25 03/08/25 10:54 Patient Tobacco Use Status Never used Tobacco 03/08/25 10:48 Coding Level of Care Code New Pt Level 4 (02934) Complex EM visit Add On G2211 Diagnoses Essential hypertension I10 Bleeding hemorrhoids K64.9 BRBPR (bright red blood per rectum) K62.5 CELE (obstructive sleep apnea) G47.33 Morbid obesity E66.01 Assessment & Plan Assessment & Plan (1) Essential hypertension: Code(s): I10 - Essential (primary) hypertension Category: Medical Plan: Controlled. Continue losartan (2) Bleeding hemorrhoids: Code(s): K64.9 - Unspecified hemorrhoids Category: Medical Plan: Given written information. Recommend which Estela and prescribed Anusol. Counseled against straining and recommend squatty potty. High-fiber diet. Given supa blood at times, referred to Gastroenterology for evaluation. CBC and iron panel ordered (3) BRBPR (bright red blood per rectum): Code(s): K62.5 - Hemorrhage of anus and rectum Category: Medical Plan: As above (4) CELE (obstructive sleep apnea): Comment: KNOWN CASE OF SEVERE OBSTRUCTIVE SLEEP APNEA. AHI =48/hr and oxygen ella was 59%. PATIENT HAS BEEN USING THE CPAP, REGULARLY AND THE COMPLIANCE IS GOOD. RESIDUAL AHI=0.1 Code(s): G47.33 - Obstructive sleep apnea (adult) (pediatric) Category: Medical Plan: Continue CPAP. Weight loss efforts encouraged (5) Morbid obesity: Comment: PATIENT REMAINS MORBIDLY OBESE, has put on 8 more lb. Code(s): E66.01 - Morbid (severe) obesity due to excess calories Category: Medical Plan: Weight loss efforts encouraged, commended on efforts thus far. Advised to contact weight management again for appointment Plan Follow-up in 6 months, labs to be completed following visit today. Orders: Orders Complete Blood Count Auto Diff Today D50.9 - Iron deficiency anemia, unspecified, E66.01 - Morbid (severe) obesity due to excess calories, I10 - Essential (primary) hypertension, K64.9 - Unspecified hemorrhoids Lipid Panel Today D50.9 - Iron deficiency anemia, unspecified, E66.01 - Morbid (severe) obesity due to excess calories, I10 - Essential (primary) hypertension, K64.9 - Unspecified hemorrhoids IRON PROFILE Today D50.9 - Iron deficiency anemia, unspecified, E66.01 - Morbid (severe) obesity due to excess calories, I10 - Essential (primary) hypertension, K64.9 - Unspecified hemorrhoids Basic Metabolic Panel Today D50.9 - Iron deficiency anemia, unspecified, E66.01 - Morbid (severe) obesity due to excess calories, I10 - Essential (primary) hypertension, K64.9 - Unspecified hemorrhoids Liver Panel Today D50.9 - Iron deficiency anemia, unspecified, E66.01 - Morbid (severe) obesity due to excess calories, I10 - Essential (primary) hypertension, K64.9 - Unspecified hemorrhoids Referrals Gastroenterology Referral D64.9 - Anemia, unspecified, K62.5 - Hemorrhage of anus and rectum, K64.9 - Unspecified hemorrhoids Medications: New hydrocortisone 2.5% 1 appl [place] BID-QID PRN 30 grams 1RF hemorrhoids Patient Instructions: Weight mangement - [phone]
[2025-03-08 10:56] VITALS: BP 123/84; PULSE 65; RESP 20; TEMP 37.1; O2SAT 95; BMI 42.2
== END 2025-03-08 11:13 | disposition home or self-care (01) ==
LOC: HO.HMCHD 10:41
PROVIDERS: PCP Physician Assistant; Visit Provider Physician Assistant
DX: I10 Essential (primary) hypertension (principal); K64.9 Unspecified hemorrhoids; K62.5 Hemorrhage of anus and rectum; G47.33 Obstructive sleep apnea (adult) (pediatric); E66.01 Morbid (severe) obesity due to excess calories

== ENCOUNTER 2025-04-16 00:29 | Emergency (ER) | payer OTHER, SELFPAY ==
--- NOTE | ~2025-04-16 | XR_ITS ---
CLINICAL HISTORY: SOB 1 view chest x-ray. Comparison: CR/SR - XR CHEST 2 VIEWS - 09/14/24 11:50 EDT Findings: No consolidation, pneumothorax, or effusion. Heart size normal. Impression: 1. No acute cardiopulmonary process. No focal pulmonary consolidation. This document has been electronically signed by: Wanger Sorensen MD on 04/16/2025 01:44:23
[2025-04-16 00:32] VITALS: BP 161/85; PULSE 84; RESP 18; TEMP 36.7; O2SAT 96; BMI 36.9
[2025-04-16 00:51] VITALS: BP 137/95; PULSE 87; RESP 16; O2SAT 96
--- NOTE | 2025-04-16 00:52 | PC.NURSE ---
Pt states he takes both metoprolol and losartan for BP, did NOT take his metoprolol today. Pressure at this time is 137/95, awaiting ED provider
[2025-04-16 00:55] LABS: MANUAL DIFF FLAG NO
[2025-04-16 00:57] LABS: Hematocrit 39.7 % (42.0-52.0); Hemoglobin 12.8 g/dl (14.0-18.0); Imm Gran Abs Auto 0.01 X10*3/uL (0.00-0.03); Imm Gran Pct Auto 0.1 % (0.0-0.4); Lymphocytes Absolute Auto 2.1 X10*3/uL (1.2-4.9); Mean Corpuscular HGB Conc 32.2 g/dl (31.0-36.0); Mean Corpuscular Hemoglobin 28.2 pg (27.0-33.0); Mean Corpuscular Volume 87.4 fL (80.0-98.0); NRBC Abs Auto 0.000 X10*3/uL (0.0-0.012); NRBC Pct Auto 0.0 /100WBC (0.0-0.2); Platelet Count 198 X10*3/uL (160-400); Red Blood Count 4.54 X10*6/uL (4.60-5.80); White Blood Count 8.1 X10*3/uL (4.8-10.8)
[2025-04-16 01:11] LABS: Alanine Aminotransferase 29 U/L (0-40); Albumin Level 4.2 g/dL (3.5-5.0); Alkaline Phosphatase 53 U/L (39-117); Anion Gap 13 (12-20); Aspartate Amino Transferase 24 U/L (5-37); Blood Urea Nitrogen 15 mg/dL (9-16); Calcium 9.5 mg/dL (8.4-10.2); Carbon Dioxide 26 mmol/L (22-29); Chloride 107 mmol/L (96-108); Creatinine Clr Calc Pharmacy 101.9; Estimated Glomerular Filt Rate > 60; Potassium 3.8 mmol/L (3.3-5.1); Sodium 142 mmol/L (135-145); Total Protein 7.1 g/dL (6.5-8.0)
[2025-04-16 01:22] LABS: COVID-19 Test Negative (Negative); IDNOW Serial# 55D5AD1C; IDNOW Serial# 58CA691E; Influenza B2 Negative (Negative)
[2025-04-16 01:27] LABS: Troponin-I High Sensitivity < 2.7 ng/L (<3.5-35.0)
--- NOTE | 2025-04-16 01:53 | ED_ITS ---
HPI - General Adult General Chief complaint: General Medical Stated complaint: high blood pressure/sob Time Seen by Provider: 04/16/25 01:12 EDT Source: patient Mode of arrival: ambulatory Limitations: no limitations History of Present Illness ED Provider: Dr. Lanier HPI narrative: 45-year-old male presented hospital today for evaluation of elevated blood pressure. Patient is on losartan and metoprolol for blood pressure control. He did not take his medicine as scheduled today. Knows that his blood pressure was elevated at 180s Systolic. Patient is complaining of some shortness of breath and dizziness and that moment. My arrival patient is asymptomatic. Blood pressure is much better. He did take a dose of losartan prior to arrival. He has no symptoms at this time. Related Data Home Medications ?Medication ?Instructions ?Recorded ?Confirmed omeprazole 20 mg capsule,delayed 20 mg PO DAILY 03/08/25 release ferrous gluconate 270 mg (27 mg 270 mg PO DAILY 03/08/25 iron) tablet Previous Rx's ?Medication ?Instructions ?Recorded metoprolol succinate 50 mg 50 mg PO QAM 30 days #30 ta bs 05/20/23 tablet,extended release 24 hr losartan 50 mg tablet 50 mg PO DAILY #90 tabs /0 12/07 cholecalciferol (vitamin D3) 125 125 mcg PO DAILY #90 caps 01/09/25 mcg (5,000 unit) capsule thiamine HCl (vitamin B1) 100 mg 100 mg PO DAILY #90 t abs 01/09/25 tablet hydrocortisone 2.5 % topical cream 1 appl CO BID-QID P RN hemorrhoids 03/08/25 with perineal applicator #30 grams Allergies Allergy/AdvReac Type Severity Reaction Status Date / Time No Known Allergies Allergy Verified 04/16/25 00:35 Review of Systems 2 Review of Systems: Pertinent review of systems as mentioned in HPI. All other system otherwise negative. [facility] Past Medical History [facility] Narrative: Medical history as mentioned in HPI Medical History GERD (gastroesophageal reflux disease) Morbid (severe) obesity due to excess calories Dyspnea on exertion Morbid obesity RBBB Surgical History History of surgery on lower extremity Family History Family History Mother No problems noted. Father No problems noted. Maternal Aunt Heart problem Social History Social History Alcohol intake: never Patient Tobacco Use Status: Never used Tobacco Smoked in Last 30 Days: No Use of substances other than those prescribed or required for medical reasons: No Advance Directives: No Advance Directives Information Provided: Yes Do you have a plan to hurt others: No Plan Current occupational status: employed Current occupation: right hand dominant Physical Exam ED Exam Exam: General: Pleasant, no distress, interacting appropriately Head: Normacephalic, atraumatic ENT: oral mucosa moist, neck supple, no tracheal deviation Cardiovascular: regular rate, regular rhythm, no murmurs, rubbing, gallops Respiratory: CTAB, no wheeze, rales, rhonchi Gastrointestinal: Soft, non distended, non tender, non guarding Extremities: No limb pain or swelling, no calf tenderness Neurological: Awake and alert, no facial droop noted Skin: Warm and dry Psychiatric: Appropriate mood and thoughts Vital Signs: Vital Signs - 24 hr 04/16/25 00:32 04/16/25 00:51 Temperature 98.1 F Pulse Rate 84 87 Respiratory Rate 18 16 Blood Pressure 161/85 H 137/95 H Pulse Oximetry 96 96 Oxygen Delivery Method Room Air Room Air BMI result Body Mass Index 36.9 Medical Decision Making Medical Decision Making [facility] Narrative: 45-year-old male presented hospital today for hypertension and shortness of breath and dizziness On re-evaluation the patient's blood pressure has decreased to 136 systolic. It is improved. He is no longer dizzy no longer having any shortness of breath. Review patient's lab work. Chest x-ray and EKG. EKG does show a right bundle branch block. Patient's troponin is negative. Chest x-ray is negative. We will plan to discharge patient with a close outpatient follow up with his primary care doctor. Encouraged further monitoring of his blood pressure. Differential Diagnosis Differential Diagnoses: The differential diagnosis associated with the presentation includes Hypertension, pulmonary edema, hypertensive crisis Lab Data [facility] Lab Attestation statement: I reviewed the patient's lab results. 04/16/25 00:49 04/16/25 00:49 Labs: Lab Results 04/16/25 Range/Units 00:49 WBC 8.1 (4.8-10.8) X10*3/uL RBC 4.54 L (4.60-5.80) X10*6/uL Hgb 12.8 L (14.0-18.0) g/dl Hct 39.7 L (42.0-52.0) % MCV 87.4 (80.0-98.0) fL MCH 28.2 (27.0-33.0) pg MCHC 32.2 (31.0-36.0) g/dl RDW 13.0 (11.0-16.0) % Plt Count 198 (160-400) X10*3/uL MPV 10.3 (9.4-12.4) fL Immature Gran % (Auto) 0.1 (0.0-0.4) % Neut % (Auto) 59.4 (45-73) % Lymph % (Auto) 26.3 (20-40) % Maverick % (Auto) 9.9 (2-11) % Eos % (Auto) 3.3 (0-4) % Baso % (Auto) 1.0 (0-2) % Lymph # (Auto) 2.1 (1.2-4.9) X10*3/uL Maverick # (Auto) 0.8 (0.1-1.2) X10*3/uL Eos # (Auto) 0.3 (0.0-0.4) X10*3/uL Baso # (Auto) 0.1 (0.0-0.2) X10*3/uL Abs Immat Gran (auto) 0.01 (0.00-0.03) X10*3/uL Absolute Neuts (auto) 4.8 (2.0-8.3) x10*3/uL Absolute Nucleated RBC 0.000 (0.0-0.012) X10*3/uL Nucleated RBC % (auto) 0.0 (0.0-0.2) /100WBC Sodium 142 (135-145) mmol/L Potassium 3.8 (3.3-5.1) mmol/L Chloride 107 (96-108) mmol/L Carbon Dioxide 26 (22-29) mmol/L Anion Gap 13 (12-20) BUN 15 (9-16) mg/dL Creatinine 1.16 (0.5-1.4) mg/dL Estim Creat Clear Calc 101.9 Estimated GFR > 60 Random Glucose 108 (60-115) mg/dL Calcium 9.5 (8.4-10.2) mg/dL Total Bilirubin 0.4 (0.0-1.0) mg/dL AST 24 (5-37) U/L ALT 29 (0-40) U/L Alkaline Phosphatase 53 (39-117) U/L Troponin I High Sens < 2.7 (<3.5-35.0) ng/L Total Protein 7.1 (6.5-8.0) g/dL Albumin 4.2 (3.5-5.0) g/dL COVID-19 (RAFAEL) Negative (Negative) COVID-19 Clin Com See Note Influenza Type A (SIMIN) Negative (Negative) Influenza Type B (SIMIN) Negative (Negative) Influenza A & B Note See Note Independent Interpretation I performed an independent interpretation of an: EKG and Plain X-Ray Radiology Impression Discussion of test interpretation with radiology: I have reviewed the radiologist's reading. Chronic Conditions Patient?s care impacted by: Hypertension Discharge Plan Discharge Clinical Impression: Hypertension Qualifiers: Hypertension type: unspecified Qualified Code(s): I10 - Essential (primary) hypertension Patient Disposition: Home, Self-Care Instructions: Hypertension (ED) Additional Instructions: Follow up with your primary care doctor. Prescriptions: No Action metoprolol succinate 50 mg tablet extended release 24 hr 50 mg PO QAM 30 Days Qty: 30 6RF losartan 50 mg tablet 50 mg PO DAILY Qty: 90 3RF cholecalciferol (vitamin D3) 125 mcg (5,000 unit) capsule 125 mcg PO DAILY Qty: 90 0RF thiamine HCl (vitamin B1) 100 mg tablet 100 mg PO DAILY Qty: 90 0RF omeprazole 20 mg capsule,delayed release(DR/EC) 20 mg PO DAILY ferrous gluconate 270 mg (27 mg iron) tablet 270 mg PO DAILY hydrocortisone 2.5 % cream with perineal applicator 1 appl CO BID-QID PRN (Reason: hemorrhoids) Qty: 30 1RF Print Language: Mongolian
--- NOTE | 2025-04-16 01:54 | ECG_ITS ---
Test Reason : SOB Blood Pressure : */* mmHG Vent. Rate : 68 BPM Atrial Rate : 68 BPM P-R Int : 162 ms QRS Dur : 144 ms QT Int : 416 ms P-R-T Axes : 56 -14 18 degrees QTcB Int : 442 ms Normal sinus rhythm Right bundle branch block Abnormal ECG When compared with ECG of 14-Sep-2024 11:11, Right bundle branch block is now Present Referred By: Lenka Lanier Electronically Signed By: OTTO PARKER
[2025-04-16 02:09] VITALS: BP 137/95; PULSE 62; RESP 18; TEMP 36.8; O2SAT 97
[2025-04-16 02:12] VITALS: BP 137/95; PULSE 62; RESP 18; TEMP 36.8; O2SAT 97
== END 2025-04-16 02:12 | disposition home or self-care (01) ==
PROVIDERS: Emergency Provider Student in an Organized Health Care Education/Training Program; PCP Physician Assistant
DX: R06.02 Shortness of breath (principal); R42 Dizziness and giddiness; I45.10 Unspecified right bundle-branch block; R00.0 Tachycardia, unspecified; I10 Essential (primary) hypertension; Z79.899 Other long term (current) drug therapy; Z11.52 Encounter for screening for COVID-19
CPT/HCPCS: 36415; 71045; 80053; 84484; 85025; 87502; 87635; 93005; 99283; 99284

== ENCOUNTER → 2025-04-16 01:02 | Outpatient (BNV) | payer OTHER, SELFPAY | PROVIDERS: Emergency Provider Student in an Organized Health Care Education/Training Program; PCP Physician Assistant; Visit Provider Radiology Diagnostic Radiology | DX: R06.02 Shortness of breath (principal) | CPT/HCPCS: 71045 ==

== ENCOUNTER → 2025-04-16 01:54 | Outpatient (BNV) | payer OTHER, SELFPAY | PROVIDERS: Emergency Provider Student in an Organized Health Care Education/Training Program; PCP Physician Assistant; Visit Provider Internal Medicine | DX: I45.10 Unspecified right bundle-branch block (principal) | CPT/HCPCS: 93010 ==